=== PATIENT | male | born 1945 | race Caucasian/White ===

== ENCOUNTER → 2018-02-16 08:27 | Outpatient (CLI) | payer MEDICARE, SELFPAY ==
[2018-02-16 09:53] LABS: PSA,Total- Diagnostic 5.83 ng/mL (0.0-4.0)
== END ==
PROVIDERS: Family Provider Family Medicine; PCP Family Medicine; Visit Provider Urology
DX: R97.20 Elevated prostate specific antigen [PSA] (principal)
CPT/HCPCS: 36415; 84153

== ENCOUNTER → 2019-09-07 15:38 | Outpatient (CLI) | payer MEDICARE, SELFPAY ==
[2019-09-05 08:47] VITALS: BMI 26.2
[2019-09-05 11:07] LABS: Anion Gap 1 (5-15); BUN 18 mg/dL (7-18); BUN/Creat Ratio 16.2 RATIO (10-20); Calcium,Total 8.8 mg/dL (8.5-10.1); Chloride 108 mmol/L (98-107); Creatinine, Serum 1.11 mg/dL (0.70-1.30); EST Glomerular Filtration Rate 69 mL/min (>60); Est Glom Filt Rate - Afr Amer 84 mL/min (>60); Glucose 100 mg/dL (74-106); Potassium 4.5 mmol/L (3.5-5.1); Sodium Level 138 mmol/L (136-145)
--- NOTE | 2019-09-07 15:42 | CT_ITS ---
STUDY: CT CHEST WITH CONTRAST REASON FOR EXAM: Male, 74 years old. TAA fu-no surgery. Prior cardiac ablation and hx of skin cancer RADIATION DOSAGE (If Supplied By Facility): CTDIvol = ( 14.45 ) mGy, DLP = ( 468.10 ) mGycm TECHNIQUE: Transaxial imaging was performed following intravenous administration of IV 100mL Isovue-300. Multiplanar coronal and sagittal images were reformatted. Individualized dose optimization techniques were used for this CT. COMPARISON: None. FINDINGS: The lungs are normal. There is no demonstrated pleural abnormality. Normal heart and pericardium. There are calcifications of the coronary arteries. Normal mediastinum. Normal hilar regions. Normal enhanced pulmonary arteries. There is ectasia of the ascending thoracic aorta with axial diameter measuring up to 4.1 x 4.2 cm. No significant atherosclerosis of the thoracic aorta except for minimal calcified plaque along the inferior margin of the thoracic aorta. No thoracic aortic dissection. Descending thoracic aorta is normal in caliber. There are degenerative changes of the thoracic spine. There is a Schmorl''s node of superior L1 endplate. There is a simple cyst of the posterior right hepatic lobe. CT/Chest WITH Contrast IMPRESSION: 1. Mild aneurysmal enlargement of the ascending thoracic aorta measuring 4.1 x 4.2 cm. No thoracic aortic dissection. 2. Simple hepatic cyst. 3. Degenerative changes of the thoracic spine. Electronically Signed: Farhan Garcia MD ([place]) at 13:00 EST , Service support ,
== END ==
PROVIDERS: PCP Family Medicine; Referring Provider Internal Medicine Cardiovascular Disease; Visit Provider Internal Medicine Cardiovascular Disease
DX: I71.2 Thoracic aortic aneurysm, without rupture (principal)
CPT/HCPCS: 36415; 71260; 80048; Q9967

== ENCOUNTER → 2020-09-08 15:33 | Outpatient (CLI) | payer MEDICARE, SELFPAY ==
[2020-06-19 09:08] VITALS: BMI 26.3
--- NOTE | 2020-09-08 | PROSBIL_PTH ---
PATIENT: BRIDGETTE MONGE LOC: [facility] U#:[id number] AGE/SX: 80/M ROOM: RE09/08/[address]: Dr. Chandan Mckinnon MD : 1945 BED: DIS: SPEC #: [id number] RECD: 09/08/20 15:12 STATUS: MANNY CAM #: [id number] MEJIA: 09/08/20 00:[address]: Chandan Mckinnon DEPT: SURGICAL PATHOLOGY RECD BY: Jason Yeager ENTERED: 09/09/20 07:52 SP TYPE: PROST BX BRENDA DR: Dr. Romel Bowman III, MD Tissues: A - PROSTATE RIGHT B - PROSTATE RIGHT C - PROSTATE RIGHT D - PROSTATE LEFT E - PROSTATE LEFT F - PROSTATE LEFT Procedures: PROSTATE BX HEADER OPERATION: Prostate biopsy PRE-OP DIAGNOSIS: Elevated PSA TISSUE SUBMITTED: A - Right apex, B - Right mid, C - Right base, D - Left apex, E - Left mid, F - Left base MICROSCOPIC DIAGNOSIS A. Right prostate, apex, core biopsy: Minimal chronic inflammation and focal glandular atrophy. B. Right prostate, mid, core biopsy: Minimal chronic inflammation and focal glandular atrophy. C. Right prostate, base, core biopsy: Benign prostatic tissue. D. Left prostate, apex, core biopsy: Mild chronic inflammation. E. Left prostate, mid, core biopsy: Mild chronic inflammation and focal glandular atrophy. F. Left prostate, base, core biopsy: Focal glandular atrophy. AM:anais 09/10/2020 MICROSCOPIC DESCRIPTION Slides are reviewed. GROSS DESCRIPTION A - Received is one container designated prostate, right apex. The specimen consists of two elongated fragments of light abad-white soft tissue measuring 0.2 x 0.5 cm in length and 0.1 cm in diameter. The specimen is totally submitted in one cassette. B - Received is one container designated prostate, right mid. The specimen consists of two elongated fragments of light abad-white soft tissue each measuring 1 cm in length and 0.1 cm in diameter. The specimen is totally submitted in one cassette. C - Received is one container designated prostate, right base. The specimen consists of three elongated fragments of light abad-white soft tissue measuring 0.5 to 1 cm in length and 0.1 cm in diameter. The specimen is totally submitted in one cassette. D - Received is one container designated prostate, left apex. The specimen consists of two elongated fragments of light abad-white soft tissue measuring 0.5 and 1.3 cm in length and 0.1 cm in diameter. The specimen is totally submitted in one cassette. E - Received is one container designated prostate, left mid. The specimen consists of three elongated fragments of light abad-white soft tissue measuring 0.5 to 2 cm in length and 0.1 cm in diameter. The specimen is totally submitted in one cassette. F - Received is one container designated prostate, left base. The specimen consists of two elongated fragments of light abad-white soft tissue measuring 1 and 1.2 cm in length and 0.1 cm in diameter. The specimen is totally submitted in one cassette. / SJ:rg 09/09/20 TC:3 CPT: G0146
== END ==
PROVIDERS: PCP Family Medicine; Referring Provider Urology; Visit Provider Urology
DX: R97.20 Elevated prostate specific antigen [PSA] (principal)
CPT/HCPCS: 88305; G0416

== ENCOUNTER → 2020-09-15 12:57 | Outpatient (CLI) | payer MEDICARE, SELFPAY ==
[2020-06-19 09:08] VITALS: BMI 26.3
== END ==
PROVIDERS: PCP Family Medicine; Referring Provider Internal Medicine Cardiovascular Disease; Visit Provider Internal Medicine Cardiovascular Disease
DX: I47.1 Supraventricular tachycardia (principal); R00.2 Palpitations
CPT/HCPCS: 93225; 93226

== ENCOUNTER → 2021-02-13 06:17 | Outpatient (CLI) | payer MEDICARE, SELFPAY ==
[2021-02-10 08:52] VITALS: BMI 26.0
--- NOTE | 2021-02-13 13:21 | STRESSREP ---
Stress Test Report Desires myocardial perfusion stress test. 75-year-old man with a history of chest pain. Stress protocol: Resting EKG demonstrates sinus bradycardia with a rate of 57 bpm normal intervals are noted resting blood pressure is 1 and 32 over 80 mmHg. The patient exercised according to regular Volodymyr protocol for total duration of 10 minutes. Patient completed 1 minute into stage IV of the Volodymyr protocol. The maximum heart rate attained was 136 bpm which was 92% of maximum predicted heart rate the maximum workload was 11.9 metabolic equivalents. At rest there were no ST or T wave changes noted to suggest ischemia and at peak exercise upsloping ST changes only were noted with did not meet the criteria for ischemia. The test was terminated due to the target heart rate being achieved. No chest pain was noted. Myocardial perfusion protocol. 11.7 mCi of technetium 99m sestamibi was injected at rest. The patient exercised according to regular Volodymyr protocol and at peak exercise 32.9 mCi of technetium 99m sestamibi was injected stress images were obtained stress and rest images were reconstructed and compared in the short axis vertical long horizontal long axis. Gated images were also obtained to Perfusion SPECT analysis: Review of the stress images demonstrate normal uptake of tracer noted in all areas of the myocardium. The resting images similarly demonstrate normal uptake of tracer noted in all areas of the myocardium. No areas of reversibility are noted to suggest ischemia no previous infarct is noted. Gated SPECT analysis: The gated ejection fraction is 68%. Conclusion: Normal exercise myocardial perfusion stress test at a high workload. Preserved ejection fraction. Good functional aerobic capacity.
== END ==
PROVIDERS: PCP Family Medicine; Referring Provider Internal Medicine Cardiovascular Disease; Visit Provider Internal Medicine Cardiovascular Disease
DX: R07.89 Other chest pain (principal)
CPT/HCPCS: 78452; 93017; A9500; A4216

== ENCOUNTER → 2021-05-19 08:01 | Outpatient (REF) | payer SELFPAY | LOC: CVS 08:01 | PROVIDERS: PCP Family Medicine | DX: Z00.00 Encounter for general adult medical examination without abnormal findings (principal) ==

== ENCOUNTER 2022-01-04 10:00 | Outpatient (RCR) | payer MEDICARE, SELFPAY ==
--- NOTE | 2021-12-17 09:59 | HP.PTEVAL_ITS ---
Patient's Visit Information BRIDGETTE MONGE is a 76 year old M referred to Physical Therapy by NIK JohnsonM with a diagnosis of Peripheral Neuropathy. Date of Evaluation: 12/16/21 Physical Therapist: Jose Butt, PT, ATC - Visit Plan Frequency: 2x /Week Duration: 2 Weeks Plan: Issue and instruct pt on HEP of core and LE strengthening ex's and balance activity over 4 visits - Subjective Pt reports he has had B foot neuropathy that is intermittent in nature for several years. Pt reports his feet tend to tighten up on him at times and he has noticed having difficulty with balance over this time span. Pt reports he is trying to be proactive by coming to PT in order to avoid future falls and debility. Pt reports he and his work out here 2 days a week in order to maintain fitness, and his goal is to decelerate the aging process as much as possible by remaining fit. 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 Pt reports occasional knee pain. Pt reports he can feel the bottom of his feet on various surfaces. Pt reports he is only limited with certain ex machines, and he is nervous with how he loses balance with quick turns. Pt is not in pain at this time. - Objective Neuro: B LE sensation is WNL to light touch. B achilles reflex= 2/3. ROM: B LE's are WFL bompared bilaterally. MMT: B knee ext= 5/5. All other B LE measurements 4/5 throughout. FGA: . Gait: Pt ambulates with knee valgus indicating weak core strength - Balance/Special Test Scores Functional Gait Assessment Score: 28 % Disability: 6.6700 Lower Extremity Functional Score: 64 - Goals Goal 1:: I with HEP of LE strengthening and core strengthening Goal Time Frame: 2-4 Weeks Goal 2:: Increase LEFS x 5 points Goal Time Frame: 2-4 Weeks - Rehabilitation Potential Physical Therapy Diagnosis: Pt has B LE weakness, core weakness, and unsteady transfers secondary to peripheral neuropathy Rehabilitation Potential: Good - Anticipated Interventions Patient/Client Instruction: Educate patient on: Condition, Plan of Care For the Purpose of:: To improve self management Therapeutic Exercise to Include: Strength training, Endurance training, Balance training, Flexibilty training, Dynamic Lumbar Stabilization For the Purpose of:: To improve muscle performance and motor function, To increase tolerance to activity/condition/position, To improve ability of physical actions for home/community/work/leisure Thank you for the opportunity to evaluate your patient. For Medicare and Medicare HMO plans, please review the plan of care and approve it. It will need to be FAXED BACK to us at [phone] for Medicare purposes. For Medicare only, by signing this I certify the plan of care. Please let me know if there are questions or concerns regarding this plan of c are. Physician Signature: Date:
--- NOTE | 2022-02-10 07:28 | HP.PT.NRP ---
BRIDGETTE MONGE was seen in my office for initial evaluation on 12/16/21. The following Plan of Care was established for this patient: Initial Frequency: 2x /Week Initial Duration: 2 Weeks Patient/Client Instruction: Educate patient on: Condition, Plan of Care For the Purpose of:: To improve self management Therapeutic Exercise to Include: Strength training, Endurance training, Balance training, Flexibilty training, Dynamic Lumbar Stabilization For the Purpose of:: To improve muscle performance and motor function, To increase tolerance to activity/condition/position, To improve ability of physical actions for home/community/work/leisure This patient was last seen in our office . Pertinent comments regarding their Physical therapy will appear below: Pt was treated for 4 PT visits for unsteady gait through the date of 01/04/22. Pt has not returned through todays date, and is discontinued at this time. At this point I will be discontinuing this patient from physical therapy. I would be happy to see this patient again in the future if found appropriate by the physician. Thank you! Jose Butt, PT, ATC Balance/Gait/Functional tests - Balance/Special Test Scores Functional Gait Assessment Score: 28 % Disability: 6.6700 Lower Extremity Functional Score: 64
== END 2022-01-04 19:00 | disposition home or self-care (01) ==
LOC: PT 10:00
PROVIDERS: PCP Family Medicine; Referring Provider Podiatrist; Visit Provider Podiatrist
DX: G62.9 Polyneuropathy, unspecified (principal)
CPT/HCPCS: 97110; 97161

== ENCOUNTER → 2023-02-25 | Outpatient (CLI) | payer MEDICARE, SELFPAY ==
[2023-02-25 15:34] LABS: AST(SGOT) 25 U/L (15-37); Alanine Aminotransfer ALT/SGPT 23 U/L (16-61); Albumin, Serum 3.4 g/dL (3.2-5.0); Alkaline Phosphatase 74 U/L (45-117); Anion Gap 3 (5-15); BUN 18 mg/dL (7-18); BUN/Creat Ratio 16.7 RATIO (10-20); Bilirubin, Direct 0.24 mg/dL (0.00-0.30); Calcium,Total 8.5 mg/dL (8.5-10.1); Chloride 113 mmol/L (98-107); Cholesterol 124 mg/dL (200); Creatinine, Serum 1.08 mg/dL (0.70-1.30); EST Glomerular Filtration Rate 71 mL/min (>60); Est Glom Filt Rate - Afr Amer 86 mL/min (>60); Globulin 3.1 g/dL (2.2-4.2); Glucose 88 mg/dL (74-106); High Density Lipoprotein 64 mg/dL; Potassium 4.7 mmol/L (3.5-5.1); Protein, Total 6.5 g/dL (6.4-8.2); Sodium Level 143 mmol/L (136-145); Triglycerides 68 mg/dL; Very Low Density Lipoprotein 14 mg/dL (5-40)
== END | disposition home or self-care (01) ==
LOC: LAB 14:02
PROVIDERS: PCP Family Medicine; Referring Provider Internal Medicine Cardiovascular Disease; Visit Provider Internal Medicine Cardiovascular Disease
DX: I71.20 Thoracic aortic aneurysm, without rupture, unspecified (principal); I47.1 Supraventricular tachycardia
CPT/HCPCS: 36415; 80048; 80061; 80076

== ENCOUNTER → 2023-04-25 | Outpatient (CLI) | payer MEDICARE, SELFPAY ==
--- NOTE | 2023-04-25 15:06 | NEURO ---
NCS and/or EMG Patient Report Ordering Doctor: Gonzalo Wright DATE OF SERVICE: 04/25/23 Findings: Nerve conduction studies were performed in the right upper and lower extremity. The right peroneal motor study recording the extensor digitorum brevis showed a borderline amplitude, normal distal latency and slowed conduction velocity. No conduction block or focal slowing was present across the fibular neck. The right peroneal motor study recording the tibialis anterior showed a normal amplitude, normal distal latency and normal conduction velocity. No conduction block or focal slowing was present across the fibular neck. The right tibial motor study recording the abductor hallucis brevis showed a slightly reduced amplitude, normal distal latency and slowed conduction velocity. The right sural sensory response was absent. The right superficial peroneal sensory response was absent. The left peroneal motor study recording the extensor digitorum brevis showed a reduced amplitude, normal distal latency and slowed conduction velocity. No conduction block or focal slowing was present across the fibular neck. The left peroneal motor study recording the tibialis anterior showed a reduced amplitude, normal distal latency and normal conduction velocity. No conduction block or focal slowing was present across the fibular neck. The left tibial motor study recording the abductor hallucis brevis showed a borderline amplitude, normal distal latency and slowed conduction velocity. The left sural sensory response was absent. The left superficial peroneal sensory response was absent. Needle EMG of the right lower extremity muscles was performed. No denervation was present in any muscle. The motor units seen in the extensor hallucis longus were large amplitude and long duration with reduced recruitment. All other sampled muscles revealed normal motor unit morphology, activation, and recruitment patterns. Impression: This is an abnormal study. There is electrophysiologic evidence of a generalized, length-dependent, axonal, sensory greater than motor, peripheral neuropathy. Roderick Bowie D.O. Multi Select Codes Neurology Neurology Interp Codes: 88049-01 Musc test done w/n test comp (interp) and 23578-39 Nr cndj test 9-10 studies (interp)
== END | disposition home or self-care (01) ==
LOC: PSN 13:53
PROVIDERS: PCP Family Medicine; Referring Provider Podiatrist; Visit Provider Podiatrist
DX: G60.8 Other hereditary and idiopathic neuropathies (principal)
CPT/HCPCS: 95886; 95911

== ENCOUNTER → 2023-05-09 | Outpatient (CLI) | payer MEDICARE, SELFPAY ==
--- NOTE | 2023-05-09 12:48 | CT_ITS ---
STUDY: CTA CHEST REASON FOR EXAM: Male, 78 years old. Ascending thoracic aorta aneurysm history RADIATION DOSAGE (If Supplied By Facility): CTDIvol = ( 13.67 ) mGy, DLP = ( 504.20 ) mGycm TECHNIQUE: The examination was performed with the intravenous administration of IV 100mL Isovue-370. Post-processing of the angiographic images was performed, with multiplanar reformation and 3D reconstruction. Individualized dose optimization techniques were used for this CT. COMPARISON: 09/07/2019 FINDINGS: Normal enhancement of the main pulmonary artery and right and left pulmonary arteries. Normal enhancement of the bilateral peripheral pulmonary arteries. There is no demonstrated pulmonary embolism. There is aneurysmal dilatation of the ascending aorta. The transverse diameter of the ascending aorta measures 46 mm''s. This represents an increase since the previous study where it measured up to 42 mm. There is no demonstrated aortic dissection. Normal heart and pericardium. Normal mediastinum. Normal hilar regions. There is peribronchial thickening. The lungs are well expanded. Normal pulmonary parenchyma. Normal pleura. Normal chest wall structures. There are degenerative changes of thoracic spine. Limited cuts through the upper abdomen do not show a suspicious abnormality CT/CTA Chest W/WO Contrast IMPRESSION: No demonstrated PE Slight increase in size of a known ascending thoracic aortic aneurysm at 46 mm. No evidence of dissection. On the previous study, the maximum dimension of the ascending thoracic aorta was 42 mm. Chronic bronchitis, no superimposed acute pulmonary process No suspicious adenopathy Degenerative bony changes Electronically Signed: Bora Angelo MD at 14:00 EDT ,
[2023-05-09 13:25] LABS: CREATININE FINGERSTICK 1.1 mg/dL (0.70-1.30); EGFR FINGERSTICK > 60.0000 mL/min (>60)
== END | disposition home or self-care (01) ==
LOC: CT 12:47
PROVIDERS: PCP Family Medicine; Referring Provider Nurse Practitioner Family; Visit Provider Nurse Practitioner Family
DX: I71.20 Thoracic aortic aneurysm, without rupture, unspecified (principal)
CPT/HCPCS: 71275; Q9967

== ENCOUNTER 2023-08-24 08:58 | Observation (INO) | payer MEDICARE, SELFPAY ==
[2023-08-10 09:44] LABS: Hemoglobin 15.3 g/dL (13.0-16.5); Mean Corp Hgb Conc 33.3 g/dL (32-36); Mean Corpuscular Hgb 31.7 pg (27.0-32.0); Mean Corpuscular Volume 95.4 fL (80-94); Mean Platelet Vol. 11.2 fl (6.2-12.0); Platelet Count 164 K/mm3 (150-450); RBC Distribution Width CV 11.9 % (11.6-14.6); Red Blood Count 4.82 M/mm3 (4.6-6.2); White Blood Count 5.4 K/mm3 (4.4-11.0)
[2023-08-10 10:20] LABS: Anion Gap 4 (5-15); BUN 20 mg/dL (7-18); BUN/Creat Ratio 17.9 RATIO (10-20); Calcium,Total 8.9 mg/dL (8.5-10.1); Chloride 110 mmol/L (98-107); Creatinine, Serum 1.12 mg/dL (0.70-1.30); EST Glomerular Filtration Rate 68 mL/min (>60); Est Glom Filt Rate - Afr Amer 82 mL/min (>60); Glucose 105 mg/dL (74-106); Potassium 4.3 mmol/L (3.5-5.1); Sodium Level 141 mmol/L (136-145)
[2023-08-24] VITALS (12 sets, daily range): BP systolic 100–128; BP diastolic 59–76; PULSE 49–79; RESP 16–18; TEMP 36.3–36.9; O2SAT 93–98; BMI 25.9; BMI 26.0
--- OUTSIDE RECORDS SUMMARY | 2023-08-24 07:05 | XMS RPT_ITS | CCD ---
Author Name Unknown Address [address] [place] [address] Organization [facility] Care Team Providers Care Pattern Wheel Maker Name Role Phone Cintia GUERRERO Nicole A Unavailable Unavailab le Cass Cunninghamica N Unavailable Jyotsna Acosta Unavailable Unavailable Cunningham, Jyotsna N Unavailable Marisa Jyotsna N Unavailable EFRAIN, MICHELLE E Unavailable Unavailable EFRAIN, MICHELLE E Unavailable Unavailable EFRAIN, MICHELLE Unavailable Unavailable CEBUL, RUPINDER Unavailable Unavailable EFRAIN, MICHELLE Unavailable Unavailable EFRAIN, MICHELLE Unavailable Unavailable EFRAIN, MICHELLE Unavailable Unavailable CEBUL, RUPINDER Unavailable Unavailable Jared Chamberlain LPNlle A Unavailable Unavailab Sherry Crandall MD Primary Care Provider Sherry Novak MD Primary Care Provider Sherry Novak MD Primary Care Provider [phone] Sherry Novak MD Unavailable Sherry Wright MD Unavailable MEKHI VERNON Referring Unavailable SHERRY NOVAK Primary Care Unavailable PAN POOL Attending Unavailable MEKHI VERNON Referring Unavailable SHERRY NOVAK Primary Care Unavailable PAN POOL Attending Unavailable MEKHI VERNON Referring Unavailable SHERRY NOVAK Primary Care Unavailable PAN POOL Attending Unavailable MEKHI VERNON Referring Unavailable SHERRY NOVAK Primary Care Unavailable PAN POOL Attending Unavailable SHERRY NOVAK Primary Care Unavailable MEKHI VERNON Attending Unavailable MEKHI VERNON Attending Unavailable SEHRRY NOVAK Referring Unavailable KISHORE, SHERRY A Primary Care Unavailable VERNON, MEKHI Referring Unavailable KISHORE, SHERRY A Primary Care Unavailable PAN POOL Attending Unavailable VERNON, MEKHI Referring Unavailable CORINE, PAN Attending Unavailable KISHORE, SHERRY A Primary Care Unavailable VERNON, MEKHI Referring Unavailable CORINE, PAN Attending Unavailable KISHORE, SHERRY A Primary Care Unavailable VERNON, MEKHI Referring Unavailable KISHORE, SHERRY A Primary Care Unavailable CORINE, PAN Attending Unavailable KISHORE, SHERRY A Primary Care Unavailable VERNON, MEKHI Referring Unavailable CORINE, PAN Attending Unavailable KISHORE, SHERRY A Primary Care Unavailable VERNON, MEKHI Referring Unavailable CORINE, PAN Attending Unavailable KISHORE, SHERRY A Primary Care Unavailable VERNON, MEKHI Referring Unavailable CORINE, PAN Attending Unavailable VERNON, MEKHI Referring Unavailable KISHORE, SHERRY A Primary Care Unavailable CORINE, PAN Attending Unavailable VERNON, MEKHI Referring Unavailable KISHORE, SHERRY A Primary Care Unavailable CORINE, PAN Attending Unavailable VERNON, MEKHI Referring Unavailable KISHORE, SHERRY A Primary Care Unavailable PAN POOL Attending Unavailable VERNON, MEKHI Referring Unavailable KISHORE, SHERRY A Primary Care Unavailable PAN POOL Attending Unavailable Allergies Allergy Classification Reported Allergen(s) Allergy Type Date of Onset Reaction(s) Facility (6 sources) benzoyl peroxide / erythromycin drug allergy 11-18-19 16 [facility] Work Phone: (20 sources) erythromycin drug allergy 08-10-20 05 Unknown [facility] Work Phone: (20 sources) iodine; Translations: [IODINE] drug allergy 06-12-20 12 Other: See Comments [facility] Work Phone: (6 sources) penicillin g drug allergy 11-18-19 16 [facility] Work Phone: (6 sources) penicillin v drug allergy 11-18-19 16 unknown [facility] Work Phone: (6 sources) sulfADIAZINE drug allergy 11-18-19 16 hives and itchy [facility] Work Phone: (6 sources) Sulfonamides drug allergy 11-18-19 16 [facility] Work Phone: (6 sources) ADHESIVE PAPER drug allergy 09-27-19 17 hives, swollena and breaks out [facility] Work Phone: (3 sources) erythromycin; Translations: [ERYTHROMYCIN] Drug Allergy 08-10-20 05 [facility] Rep[facility] (20 sources) Penicillins; Translations: [PENICILLINS] Propensity to adverse reactions to drug (disorder) 08-10-20 05 Unknown [facility] Rep[facility] (20 sources) Sulfonamides (Antibiotic); Translations: [SULFA (SULFONAMIDE ANTIBIOTICS)] Propensity to adverse reactions to drug (disorder) 08-10-20 05 Unknown [facility] Medications Completed/Discontinued Medications Medication Drug Class(es) Dates Sig (Normalized) Sig (Original) acebutolol 200 mg oral capsule (20 sources) beta-Adrenergic Phuc Start: 02-21-2023 take 1 capsule by mouth every other day acebutolol (SECTRAL) 200 mg capsule Indications: SVT (supraventricular tachycardia) Take 1 capsule by mouth every other day. 45 capsule 1 02/21/2023 Active Problems Active Problems Problem Classification Problem Date Documented Date Episodic/Chronic Aortic; peripheral; and visceral artery aneurysms (20 sources) Thoracic aortic aneurysm without rupture; Translations: [Thoracic aortic aneurysm, without rupture] Onset: 01-20-2021 02-10-2021 Chronic Asthma (20 sources) Mild intermittent asthma; Translations: [Mild intermittent asthma, uncomplicated] Onset: 01-20-2021 02-10-2021 Chronic Cardiac dysrhythmias (20 sources) Supraventricular tachycardia; Translations: [Supraventricular tachycardia] Onset: 06-14-2013 02-10-2021 Chronic Diverticulosis and diverticulitis (20 sources) Diverticulosis of colon; Translations: [Diverticulosis of large intestine without perforation or abscess without bleeding] 07-22-2021 Chronic Hyperplasia of prostate (20 sources) Benign prostatic hypertrophy with outflow obstruction; Translations: [Benign prostatic hyperplasia with lower urinary tract symptoms] Onset: 07-14-2015 02-10-2021 Chronic Nutritional deficiencies (20 sources) Vitamin D deficiency; Translations: [Vitamin D deficiency, unspecified] Onset: 11-12-2009 02-10-2021 Chronic Other liver diseases (20 sources) Lesion of liver; Translations: [Liver disease, unspecified] Onset: 07-15-2016 02-10-2021 Chronic Other liver diseases (20 sources) Liver cyst; Translations: [Other specified diseases of liver] Onset: 07-26-2018 02-10-2021 Chronic Other nervous system disorders (20 sources) Idiopathic peripheral neuropathy; Translations: [Hereditary and idiopathic neuropathy, unspecified] Onset: 08-23-2014 07-22-2021 Chronic Other nervous system disorders (8 sources) Neuropathy; Translations: [Other hereditary and idiopathic neuropathies] Onset: 04-29-2023 04-29-2023 Chronic Unclassified (1 source) Unknown / UNK(Unknown) Onset: 09-15-2017 Past or Other Problems Problem Classification Problem Date Documented Date Episodic/Chronic Diabetes mellitus without complication (20 sources) Impaired fasting glycemia; Translations: [Impaired fasting glucose] Onset: 07-26-2018 02-10-2021 Episodic Hemorrhoids (20 sources) Hemorrhoids; Translations: [Unspecified hemorrhoids] Onset: 11-16-2010 02-10-2021 Episodic Melanomas of skin (20 sources) History of malignant melanoma of the skin; Translations: [Personal history of malignant melanoma of skin] Onset: 03-08-2007 02-10-2021 Episodic Other connective tissue disease (6 sources) Adhesive capsulitis of right shoulder; Translations: [Adhesive capsulitis of right shoulder] Onset: 11-10-2016 11-21-2016 Episodic Other connective tissue disease (20 sources) Lateral epicondylitis of right humerus; Translations: [Lateral epicondylitis, right elbow] Onset: 10-28-2022 Episodic Other connective tissue disease (1 source) Lateral epicondylitis, right elbow; Translations: [Right lateral epicondylitis] Onset: 10-28-2022 Episodic Other lower respiratory disease (6 sources) Dyspnea; Translations: [Shortness of breath] Onset: 11-19-2015 11-19-2015 Episodic Other lower respiratory disease (20 sources) Chronic cough; Translations: [Chronic cough] Onset: 07-14-2015 02-10-2021 Episodic Other non-epithelial cancer of skin (20 sources) History of malignant neoplasm of skin; Translations: [Personal history of other malignant neoplasm of skin] Onset: 03-16-2014 02-10-2021 Episodic Other non-traumatic joint disorders (11 sources) Impingement syndrome of shoulder region; Translations: [Pain in right shoulder] Onset: 11-10-2016 11-21-2016 Episodic Other non-traumatic joint disorders (1 source) Pain in right shoulder; Translations: [Pain in right shoulder] Onset: 11-10-2016 11-10-2016 Episodic Other screening for suspected conditions (not mental disorders or infectious disease) (20 sources) Patient encounter status; Translations: [Encounter for screening for lipoid disorders] Onset: 08-30-2022 Episodic Results Test Name Value Interpretation Reference Range Facil ity Vital Signs Date Time Vital Sign Value Performing Clinician Facility 10-20-2022 12:04-0500 Diastolic blood pressure 88 mm[Hg] Mekhi OVERTON-C Work Phone: [facility] 10-20-2022 12:04-0500 Systolic blood pressure 138 mm[Hg] Mekhi OVERTON-C Work Phone: [facility] 10-20-2022 11:53-0500 Heart rate 52 /min Mekhi OVERTON-C Work Phone: [facility] 10-20-2022 11:53-0500 Respiratory rate 16 /min Mekhi OVERTON-C Work Phone: [facility] 10-20-2022 11:53-0500 SaO2% (BldA) [Mass fraction] 96 % Mekhi OVERTON-C Work Phone: [facility] 08-30-2022 12:17-0500 Diastolic blood pressure 82 mm[Hg] Mekhi OVERTON-C Work Phone: [facility] 08-30-2022 12:17-0500 Systolic blood pressure 128 mm[Hg] Mekhi OVERTON-C Work Phone: [facility] 08-30-2022 12:12-0500 Body height 182.6 cm Mekhi OVERTON-C Work Phone: [facility] 08-30-2022 12:12-0500 Body weight 87.73 kg Mekhi OVERTON-C Work Phone: [facility] 08-30-2022 12:12-0500 Heart rate 59 /min Mekhi Vernon PA-C Work Phone: [facility] 08-30-2022 12:12-0500 Respiratory rate 18 /min Mekhi Vernon PA-C Work Phone: [facility] 08-30-2022 12:12-0500 SaO2% (BldA) [Mass fraction] 95 % Mekhi Vernon PA-C Work Phone: [facility] 03-28-2017 07:08-0400 BMI (Body Mass Index) 25.86 kg/m2 Nicole Yensho GROCERY SUPERVISOR [facility] Work Phone: 03-28-2017 07:08-0400 Body Temperature 97.7 [degF] Nicole Yensho GROCERY SUPERVISOR [facility] Work Phone: 03-28-2017 07:08-0400 BP Diastolic 18 mm[Hg] Nicole Yensho GROCERY SUPERVISOR [facility] Work Phone: 03-28-2017 07:08-0400 BP Systolic 127 mm[Hg] Nicole Yensho GROCERY SUPERVISOR [facility] Work Phone: 03-28-2017 07:08-0400 Height 185.42 cm Nicole Yensho GROCERY SUPERVISOR [facility] Work Phone: 03-28-2017 07:08-0400 Pulse (Heart Rate) 53 /min Nicole Yensho GROCERY SUPERVISOR [facility] Work Phone: 03-28-2017 07:08-0400 Respiratory Rate 18 /min Nicole Yensho GROCERY SUPERVISOR [facility] Work Phone: 03-28-2017 07:08-0400 Weight 88.91 kg Nicole Yensho GROCERY SUPERVISOR [facility] Work Phone: 11-10-2016 13:30-0400 BMI (Body Mass Index) 25.06 kg/m2 [facility] Work Phone: 11-10-2016 13:30-0400 Weight 86.18 kg [facility] Work Phone: 09-27-2016 09:19-0500 Body Temperature 97.16 [degF] [facility] Work Phone: 09-27-2016 09:19-0500 Body Temperature 97.2 [degF] [facility] Work Phone: 09-27-2016 09:19-0500 BP Diastolic 82 mm[Hg] [facility] Work Phone: 09-27-2016 09:19-0500 BP Systolic 125 mm[Hg] [facility] Work Phone: 09-27-2016 09:19-0500 BSA (Body Surface Area) 2.15 m2 [facility] Work Phone: 09-27-2016 09:19-0500 Height 185.42 cm [facility] Work Phone: 09-27-2016 09:19-0500 Pulse (Heart Rate) 56 /min [facility] Work Phone: 09-27-2016 09:19-0500 Pulse Oximetry 98 % [facility] Work Phone: 09-27-2016 09:19-0500 Respiratory Rate 18 /min [facility] Work Phone: 09-27-2016 09:19-0500 Weight 90.45 kg Jyotsna Cunningham [facility] Work Phone: Encounters Encounter Date Encounter Type Care Provider Facility Start: 07-21-2023 End: 07-21-2023 ambulatory MEKHI VERNON Facility:[facility] Start: 07-21-2023 End: 07-21-2023 ambulatory Pan Pool PT Work Phone: [facility] Physical Therapy Procedures Date Procedure Procedure Detail Performing Clinician Start: 02-25-2023 Lipid panel [facility] Provid er Start: 11-10-2016 End: 11-21-2016 Drain/inject, joint/bursa Ajit Ryan Martin Work Phone: Start: 09-27-2016 End: 09-30-2016 Follow Up Appt 6 months Bibiana atwood AMBULATORY NURSE Work Phone: Start: 09-15-2016 End: 09-17-2016 Pulmonary Function Test - complete Bibiana Lovett AMBULATORY NURSE Work Phone: Start: 03-29-2016 End: 09-17-2016 BWA Bibiana Mendoza AUTOMATIC HEMMER Work Phone: Start: 12-31-2015 End: 01-02-2016 Evaluate pt use of inhaler Volodymyr moody Work Phone: Start: 12-31-2015 End: 09-30-2016 Follow Up Appt 3 months Volodymyr Felix Work Phone: Start: 11-19-2015 End: 03-26-2016 Follow Up Appt 1 month Volodymyr Felix Work Phone: Start: 11-19-2015 End: 03-26-2016 Pulmonary Function Test - complete Volodymyr Felix Work Phone: Start: 12-28-2010 Kaci ding MD Work Phone: Plan of Treatment Date Care Activity Detail Author Start: 02-26-2028 LIPID SCREEN LIPID SCREEN [facility] Start: 07-05-2027 LIPID SCREEN LIPID SCREEN [facility] Start: 08-11-2026 Urine microalbumin profile [facility] Start: 07-16-2026 LIPID SCREEN LIPID SCREEN [facility] Start: 07-05-2025 DIABETES SCREEN DIABETES SCREEN [facility] Start: 07-05-2025 Diabetes Screening Diabetes Screenin g [facility] Start: 07-16-2024 DIABETES SCREEN DIABETES SCREEN [facility] Start: 12-24-2023 COLOGUARD (FIT-DNA) COLOGUARD (FIT-D NA) [facility] Start: 12-24-2023 COLORECTAL CANCER SCREENING COLORECTAL CANCER SCREENING [facility] Start: 12-18-2023 COLOGUARD (FIT-DNA) COLOGUARD (FIT-D NA) [facility] Start: 12-18-2023 COLORECTAL CANCER SCREENING COLORECTAL CANCER SCREENING [facility] Start: 10-21-2023 ANNUAL PCP TEAM DIRECTOR INSURANCE CITLALY DISEASE VISIT ANNUAL PCP TEAM CHRONIC DISEASE VISIT [facility] Start: 08-30-2023 ANNUAL PCP TEAM DIRECTOR INSURANCE CITLALY DISEASE VISIT ANNUAL PCP TEAM CHRONIC DISEASE VISIT [facility] Start: 04-15-2023 Covid-19 Vaccine () Covid-19 Vaccine () [facility] Start: 04-15-[address] [facility] Start: 10-14-2022 COVID-19 VACCINE (6 - Pfizer series) COVID-19 VACCINE (6 - Pfizer series) [facility] Start: 07-22-2022 ANNUAL PCP TEAM DIRECTOR INSURANCE CITLALY DISEASE VISIT ANNUAL PCP TEAM CHRONIC DISEASE VISIT [facility] Start: 06-23-2022 End: 08-23-2022 25-hydroxyvitamin D3 [Mass/volume] in Serum or Plasma VITAMIN D 25 HYDROXY Lab Routine Vitamin D deficiency Expected: 06/23/2022, Expires: 08/23/2022 [facility] Work Phone: Immunizations Immunization Date Immunization Notes Care Provider Fa cility 06-16-2022 COVID-19 booster vaccine, age 12+ yr, bivalent (PPTVNTMeditech Solution) Sherry Novak MD Work Phone: [facility] 06-16-2022 influenza, high dose seasonal, preservative-free Sherry Novak MD Work Phone: [facility] 06-16-2022 influenza virus vacc ine, unspecified formulation Sherry Novak MD Work Phone: [facility] 11-05-2020 COVID-19 vaccine, ag e 12+ yr (PFIZER-BIONTECH - PURPLE TOP) Sherry Novak MD Work Phone: [facility] Work Phone: 10-15-2020 COVID-19 vaccine, ag e 12+ yr (PFIZER-BIONTECH - PURPLE TOP) Sherry Novak MD Work Phone: [facility] Work Phone: 07-17-2020 zoster vaccine recombinant Sherry Novak MD Work Phone: [facility] 05-15-2020 influenza, high dose seasonal, preservative-free Sherry Novak MD Work Phone: [facility] 05-15-2020 zoster vaccine recombinant Sherry Novak MD Work Phone: [facility] 08-02-2019 influenza, high dose seasonal, preservative-free Sherry Novak MD Work Phone: [facility] 05-27-2018 influenza, high dose seasonal, preservative-free Sherry Novak MD Work Phone: [facility] 08-03-2017 influenza, high dose seasonal, preservative-free Sherry Novak MD Work Phone: [facility] Work Phone: 08-11-2016 tetanus and diphther ia toxoids, adsorbed, preservative free, for adult use (5 Lf of tetanus toxoid and 2 Lf of diphtheria toxoid) Sherry Novak MD Work Phone: [facility] 08-11-2016 typhoid vaccine, unspecified formulation Sherry Novak MD Work Phone: [facility] 07-22-2016 influenza, high dose seasonal, preservative-free Sherry Novak MD Work Phone: [facility] 07-14-2015 influenza, high dose seasonal, preservative-free Sherry Novak MD Work Phone: [facility] 07-14-2015 pneumococcal conjuga te vaccine, 13 valent Sherry Novak MD Work Phone: [facility] 06-24-2014 influenza, high dose seasonal, preservative-free Sherry Novak MD Work Phone: [facility] 06-14-2013 influenza virus vacc ine, unspecified formulation Sherry Novak MD Work Phone: [facility] 06-13-2012 pneumococcal polysaccharide vaccine, 23 valent Sherry Novak MD Work Phone: [facility] 06-12-2012 influenza virus vacc ine, unspecified formulation Sherry Novak MD Work Phone: [facility] 09-02-2009 novel influenza-H1N1 -09, preservative-free, injectable Sherry Novak MD Work Phone: [facility] 07-31-2009 tetanus and diphther ia toxoids, adsorbed, preservative free, for adult use (2 Lf of tetanus toxoid and 2 Lf of diphtheria toxoid) Sherry Novak MD Work Phone: [facility] 01-24-2009 zoster vaccine, live Sherry Novak MD Work Phone: [facility] 10-14-2004 yellow fever vaccine Sherry Novak MD Work Phone: [facility] 09-24-1999 hepatitis A vaccine, unspecified formulation Sherry Novak MD Work Phone: [facility] 09-24-1999 hepatitis B vaccine, adult dosage Sherry Novak MD Work Phone: [facility] 07-15-1999 hepatitis A vaccine, unspecified formulation Sherry Novak MD Work Phone: [facility] 07-15-1999 hepatitis B vaccine, adult dosage Sherry Novak MD Work Phone: [facility] 03-23-1999 hepatitis B vaccine, adult dosage Sherry Novak MD Work Phone: [facility] 02-09-1999 hepatitis A vaccine, unspecified formulation Sherry Novak MD Work Phone: [facility] 02-09-1999 hepatitis B vaccine, adult dosage Sherry Novak MD Work Phone: [facility] 02-09-1999 trivalent poliovirus vaccine, live, oral Sherry Novak MD Work Phone: [facility] 01-29-1999 diphtheria and tetan us toxoids, adsorbed for pediatric use Sherry Novak MD Work Phone: [facility] Payers Date Payer Category Payer Medicare AETNA MEDICARE A ETNA MEDICARE PPO [id number] 2021-Present [phone] [address] [place] [address] PPO [id number] 2021 Medicare AETNA MEDICARE A ETNA MEDICARE PPO [id number] 2021-Present [phone] [address] [place] [address] PPO [id number] 2021 Medicare [id number] Medicare [id number] Social History Date Type Detail Facility Start: 08-30-2022 Tobacco smoking stat [facility] Never smoked tobacco [facility] Start: 07-22-2021 End: 10-20-2022 Alcohol intake Current drinker of alcohol (finding) [facility] Start: 07-22-2021 End: 04-29-2023 Alcohol intake [facility] Start: 08-26-2020 End: 07-24-2022 History SDOH Alcohol Frequency 5 [facility] Start: 08-26-2020 End: 07-24-2022 History SDOH Alcohol Std Drinks 1 [facility] Start: 07-26-2016 History SDOH Alcohol Comment wine daily [facility] Start: 08-26-2020 End: 07-24-2022 History SDOH Social Connections Phone 3 [facility] Start: 08-26-2020 End: 07-24-2022 History SDOH Physical Activity DPW 7 [facility] Start: 08-26-2020 End: 07-24-2022 History SDOH Physical Activity MPS 6 [facility] Start: 08-26-2020 History SDOH Stress 4 [facility] Start: 08-26-2020 End: 07-24-2022 History SDOH Transport Med 2 [facility] Start: 08-26-2020 Education 18 [facility] Start: 1945 Sex Assigned At Male [facility] Start: 08-30-2022 Tobacco use and exposure Smoke less tobacco non-user [facility] Start: 07-24-2022 End: 04-29-2023 Social connection and isolation panel [facility] Do you belong to any clubs or organizations such as scientologist groups, unions, [email or web address] or athletic groups, or school groups? No [facility] Are you now , , , , never or living with a partner? [facility] How often to you hav e a drink containing alcohol? 4 or more times a week [facility] How many standard dr inks containing alcohol do you have on a typical day? 1 or 2 [facility] How often do you hav e 6 or more drinks on 1 occasion? Never [facility] How hard is it for y ou to pay for the very basics like food, housing, medical care, and heating Not hard at all [facility] Do you feel stress - tense, restless, nervous, or anxious, or unable to sleep at night because your mind is troubled all the time - these days [OSQ] Only a little [facility] (I/We) worried wheth er (my/our) food would run out before (I/we) got money to buy more. Never true [facility] Start: 08-18-2020 Gender identity Identifies as male gender (finding) [facility] Start: 08-18-2020 Sexual orientation Heterosexual (chetan bingham) [facility] Clinical Notes 08-03-2017 to 08-19-2023 Pan Pool, PT - 07/21/2023 8:28 AM Pan Chow, PT - 06/22/2023 8:00 AM Pan Chow, PT - 06/13/2023 10:43 AM Allegra Maddox LPN - 05/26/2023 9:17 AM EDT Note Date & Type Note Facility 08-19-2023 Note HNO ID: [id number] Author: ALLEGRA DAVISON LPN Service: ? Author Type: LICENSED NURSE Type: Progress Notes Filed: 08/19/2023 18:42 Note Text: Scan on 08/18/2023 4:21 PM by Amy Quiñones PA-C: Consultation - [facility] 08-11-2023 Note HNO ID: [id number] Author: Allegra Davison LPN Service: ? Author Type: LICENSED NURSE Type: Progress Notes Filed: 08/11/2023 11:28 PM Note Text: Scan on 08/10/2023 10:11 AM by ProviderAmy PA-C: Hematology [facility] 08-10-2023 Note HNO ID: [id number] Author: Nisha Alonzo LPN Service: ? Author Type: LICENSED NURSE Type: Progress Notes Filed: 08/10/2023 4:33 PM Note Text: Scan on 08/10/2023 10:34 AM by Amy Quiñones PA-C: Chemistry [facility] 07-21-2023 Note HNO ID: [id number] Author: Pan Pool, PT Service: ? Author Type: Physical Therapist Type: Progress Notes Filed: 07/21/2023 8:59 AM Note Text: Episode Visit Count: 8 Therapist That Will Accept/Oversee The Plan Of Care: Pan Pool Start of Care Date: 04/29/23 Onset Date: 04/29/22 Plan of Care Certification Date: 06/22/23 Next Certification Due Date: 07/27/23 Patient Identified by Name and Date of : Yes REHABILITATION AND SPORTS THERAPY PHYSICAL THERAPY DISCONTINUANCE OF CARE PLAN OF CARE UPDATE: Assessment: Frank Monge is discontinued from Physical Therapy services due to maximal benefit.. Patient was seen for 8 visits from Start of Care Date: 04/29/23 to 07/21/2023 and treatment included: Therapeutic exercise, Manual therapy, Self-fpc management, and Patient/Family/Caregiver Education. Goals updated 07/21/2023 Goals for Episode of Care: created on 04/29/23 through 06/24/23 Independent in home exercises. - MET Stand / Walk indefinitely without pain/symptoms. - Progressing, will continue Improve hip SG to WNL ROM for improved mobility and decreased pain - MET Pt will be able to perform single leg heel raise in 8 weeks or less - MET Patient Goals: Decreased neuropathy (peripheral) SUBJECTIVE: The trip was great. Had to walk on a lot of cobblestone. The feet held up better than he thought it would. But some days the feet would get tight. No back pain today. Did the exercises usually twice a day when on vacation and he would also get into a warm whirlpool. The symptoms overall have improved by 50% and he does not have to worry about his balance so much. Pain: PROMIS Scales Higher is Better 07/19/2023 06/11/2023 04/29/2023 Phys Func - Score 52 (within normal limits) 49 (within normal limits) 55 (within normal limits) Phys Func - Percentile 58% 46% 69% Self-Eff Symptom - Score 69 (High) 50 (Average) 57 (Average) Self-Eff Symptom - Percentile 97% 50% 76% T-scores: mean of general population = 50. 5 points is clinically meaningfully difference Percentiles provide an indication of how the patient's score ranks in relation to the general population. Higher percentile rankings indicate better function/quality of life. 50th percentile is the average of the general population and indicates half of respondents had a worse score. OBJECTIVE MEASURES WITH LEVEL OF FUNCTION: Lumbar Spine AROM Lumbar Flexion: Normal Lumbar Extension: Normal Lumbar R Side Golva: Normal Lumbar L Side Golva: Normal Lumbar R Side-Bend: Normal Lumbar L Side-Bend: Normal Lumbar R Rotation: Normal Lumbar L Rotation: Normal LE AROM R LE AROM: WNL L LE AROM: WNL TREATMENT: Manual Therapy: 1: All objective measures taken 2: Firm pressure with elbow along lumbar and thoracic paraspinals bilat 3: Lumbar distraction using forearms in prone x 10 4: Bowstringing paraspinals of lumbar region bilat 5: Index knobblet to paraspinals and QL bilat with firm pressure Skilled Intervention: Manual skills to improve joint mobility, ROM, and decrease pain. Utilized anatomy knowledge of the therapist, and assessment of patient's response to intervention. Billing Manual TherapyTreatment Minutes: 28 Skilled Treatment Time Minutes (timed and untimed codes): 28 Total Session Time (minutes): Session Start Time : 827 Session Stop Time : 855 Pan Pool PT [facility] 07-21-2023 History of Presen t illness Narrative Episode Visit Count: 8 Therapist That Will Accept/Oversee The Plan Of Care: Pan Pool Start of Care Date: 04/29/23 Onset Date: 04/29/22 Plan of Care Certification Date: 06/22/23 Next Certification Due Date: 07/27/23 Patient Identified by Name and Date of : Yes REHABILITATION AND SPORTS THERAPY PHYSICAL THERAPY DISCONTINUANCE OF CARE PLAN OF CARE UPDATE: Assessment: Frank Monge is discontinued from Physical Therapy services due to maximal benefit.. Patient was seen for 8 visits from Start of Care Date: 04/29/23 to 07/21/2023 and treatment included: Therapeutic exercise, Manual therapy, Self-fpc management, and Patient/Family/Caregiver Education. Goals updated 07/21/2023 Goals for Episode of Care: created on 04/29/23 through 06/24/23 Independent in home exercises. - MET Stand / Walk indefinitely without pain/symptoms. - Progressing, will continue Improve hip SG to WNL ROM for improved mobility and decreased pain - MET Pt will be able to perform single leg heel raise in 8 weeks or less - MET Patient Goals: Decreased neuropathy (peripheral) SUBJECTIVE: The trip was great. Had to walk on a lot of cobblestone. The feet held up better than he thought it would. But some days the feet would get tight. No back pain today. Did the exercises usually twice a day when on vacation and he would also get into a warm whirlpool. The symptoms overall have improved by 50% and he does not have to worry about his balance so much. Pain: PROMIS Scales Higher is Better 07/19/2023 06/11/2023 04/29/2023 Phys Func - Score 52 (within normal limits) 49 (within normal limits) 55 (within normal limits) Phys Func - Percentile 58% 46% 69% Self-Eff Symptom - Score 69 (High) 50 (Average) 57 (Average) Self-Eff Symptom - Percentile 97% 50% 76% T-scores: mean of general population = 50. 5 points is clinically meaningfully difference Percentiles provide an indication of how the patient's score ranks in relation to the general population. Higher percentile rankings indicate better function/quality of life. 50th percentile is the average of the general population and indicates half of respondents had a worse score. OBJECTIVE MEASURES WITH LEVEL OF FUNCTION: Lumbar Spine AROM Lumbar Flexion: Normal Lumbar Extension: Normal Lumbar R Side Golva: Normal Lumbar L Side Golva: Normal Lumbar R Side-Bend: Normal Lumbar L Side-Bend: Normal Lumbar R Rotation: Normal Lumbar L Rotation: Normal LE AROM R LE AROM: WNL L LE AROM: WNL TREATMENT: Manual Therapy: 1: All objective measures taken 2: Firm pressure with elbow along lumbar and thoracic paraspinals bilat 3: Lumbar distraction using forearms in prone x 10 4: Bowstringing paraspinals of lumbar region bilat 5: Index knobblet to paraspinals and QL bilat with firm pressure Skilled Intervention: Manual skills to improve joint mobility, ROM, and decrease pain. Utilized anatomy knowledge of the therapist, and assessment of patient's response to intervention. Billing Manual TherapyTreatment Minutes: 28 Skilled Treatment Time Minutes (timed and untimed codes): 28 Total Session Time (minutes): Session Start Time : 827 Session Stop Time : 855 Pan Pool PT documented in this encounter [facility] 06-22-2023 Note HNO ID: [id number] Author: Pan Pool PT Service: ? Author Type: Physical Therapist Type: Progress Notes Filed: 06/22/2023 8:44 AM Note Text: Episode Visit Count: 7 Therapist That Will Accept/Oversee The Plan Of Care: Pan Pool Start of Care Date: 04/29/23 Onset Date: 04/29/22 Plan of Care Certification Date: 06/22/23 Next Certification Due Date: 07/27/23 Patient Identified by Name and Date of : Yes REHABILITATION AND SPORTS THERAPY PHYSICAL THERAPY PROGRESS REPORT PLAN OF CARE UPDATE: Assessment: Frank Monge demonstrates improvements in running. He has progressed toward goals. Patient continues to present with impairments in independence in exercise and symptom management that interfere with running . Current prognosis is Good due to: current objective clinical presentation . He will benefit from continued skilled therapy services to meet the updated goals for this plan of care as noted below. Goals updated 06/22/2023 Goals for Episode of Care: created on 04/29/23 through 06/24/23 Independent in home exercises. - MET Stand / Walk indefinitely without pain/symptoms. - Progressing, will continue Improve hip SG to WNL ROM for improved mobility and decreased pain (NEW) Pt will be able to perform single leg heel raise in 8 weeks or less - MET Patient Goals: Decreased neuropathy (peripheral) Patient Goals: Decreased neuropathy (peripheral) Planned Interventions, Frequency, and Duration: 1x/month, One month Total Number of Visits Planned: 1 Patient to be seen for Therapeutic exercise (31625), Neuromuscular re-education (24831), Manual therapy (08595), Therapeutic activities (01082), Self-fpc management (10246), Patient/Family/Caregiver Education PLAN FOR NEXT VISIT: DDN as needed along lumbar paraspinals Classification Low Back Pain Subgroup Classification: Spinal mobilization subgroup: recommended visits 6. Spinal Mobilization Subgroup Classification based on: ROM loss SUBJECTIVE: Not feeling much pain. Maybe a dull. Feels pretty good with everything. Th day after he had the needling was the day he woke up without a tight sore back. The feet come and go. Would like to have one more session after his trip to make sure his back symptoms do not worsen due to travel. Patient Goals: Decreased neuropathy (peripheral) Functional Limitations: running Prior Level of Function: Independent without limitations Intake Information: Prescription present Previous Treatment: Physical Therapy Pain: Pain Pain Level: (Just a slight ache) Pain Location: Back Post Treatment Pain Post Treatment Pain Level: Better Post Treatment Pain Location: Back PROMIS Scales Higher is Better 06/11/2023 04/29/2023 11/23/2022 Phys Func - Score 49 (within normal limits) 55 (within normal limits) 43 (mild dysfunction) Phys Func - Percentile 46 % 69 % 24 % Self-Eff Symptom - Score 50 (Average) 57 (Average) 51 (Average) Self-Eff Symptom - Percentile 50 % 76 % 54 % T-scores: mean of general population = 50. 5 points is clinically meaningfully difference Percentiles provide an indication of how the patient's score ranks in relation to the general population. Higher percentile rankings indicate better function/quality of life. 50th percentile is the average of the general population and indicates half of respondents had a worse score. OBJECTIVE MEASURES WITH LEVEL OF FUNCTION: Lumbar Spine AROM Lumbar Flexion: Normal Lumbar Extension: Normal Lumbar R Side Golva: Minimal limitation Lumbar L Side Golva: Minimal limitation Lumbar R Side-Bend: Normal Lumbar L Side-Bend: Normal Lumbar R Rotation: Normal Lumbar L Rotation: Normal LE AROM R LE AROM: WNL L LE AROM: WNL LE Strength R LE Strength: Grossly 5/5 L LE Strength: Grossly 5/5 Gait Gait Observation: Gait WNL TREATMENT: Therapeutic Exercise: 1: All objective measures taken this session 2: Child's pose x 10 holding 5 sec each 3: Cat pose x 5 holding 10 sec each Skilled Intervention: Patient was educated in proper exercise technique and purpose for exercises. Provided written instruction for home exercise program to facilitate proper performance and compliance. Correct performance of therapeutic exercises was facilitated with verbal and visual cuing. Manual Therapy: Dry needling to following Trigger points: 4 Needle length: 50mm 2.0 in . [place] used 4, needles removed 4. Dry needling technique used: Pistoning and Fanning. Patient education on purpose, precautions, safety, risks, and other treatment options regarding dry needling. Verbal consent received. 1: Dry needling performed (see objective measures section for details) 2: STM firm pressure over Lumbar paraspinals Skilled Intervention: Manual skills to improve joint mobility, ROM, and decrease pain. Utilized anatomy knowledge of the therapist, and assessment of patient's response to intervention. Billing Therapeutic E (more content not included)... [facility] 06-22-2023 History of Presen t illness Narrative Episode Visit Count: 7 Therapist That Will Accept/Oversee The Plan Of Care: Pan Pool Start of Care Date: 04/29/23 Onset Date: 04/29/22 Plan of Care Certification Date: 06/22/23 Next Certification Due Date: 07/27/23 Patient Identified by Name and Date of : Yes REHABILITATION AND SPORTS THERAPY PHYSICAL THERAPY PROGRESS REPORT PLAN OF CARE UPDATE: Assessment: Frank Monge demonstrates improvements in running. He has progressed toward goals. Patient continues to present with impairments in independence in exercise and symptom management that interfere with running . Current prognosis is Good due to: current objective clinical presentation . He will benefit from continued skilled therapy services to meet the updated goals for this plan of care as noted below. Goals updated 06/22/2023 Goals for Episode of Care: created on 04/29/23 through 06/24/23 Independent in home exercises. - MET Stand / Walk indefinitely without pain/symptoms. - Progressing, will continue Improve hip SG to WNL ROM for improved mobility and decreased pain (NEW) Pt will be able to perform single leg heel raise in 8 weeks or less - MET Patient Goals: Decreased neuropathy (peripheral) Patient Goals: Decreased neuropathy (peripheral) Planned Interventions, Frequency, and Duration: 1x/month, One month Total Number of Visits Planned: 1 Patient to be seen for Therapeutic exercise (99184), Neuromuscular re-education (26520), Manual therapy (15073), Therapeutic activities (02706), Self-fpc management (62039), Patient/Family/Caregiver Education PLAN FOR NEXT VISIT: DDN as needed along lumbar paraspinals Classification Low Back Pain Subgroup Classification: Spinal mobilization subgroup: recommended visits 6. Spinal Mobilization Subgroup Classification based on: ROM loss SUBJECTIVE: Not feeling much pain. Maybe a dull. Feels pretty good with everything. Th day after he had the needling was the day he woke up without a tight sore back. The feet come and go. Would like to have one more session after his trip to make sure his back symptoms do not worsen due to travel. Patient Goals: Decreased neuropathy (peripheral) Functional Limitations: running Prior Level of Function: Independent without limitations Intake Information: Prescription present Previous Treatment: Physical Therapy Pain: Pain Pain Level: (Just a slight ache) Pain Location: Back Post Treatment Pain Post Treatment Pain Level: Better Post Treatment Pain Location: Back PROMIS Scales Higher is Better 06/11/2023 04/29/2023 11/23/2022 Phys Func - Score 49 (within normal limits) 55 (within normal limits) 43 (mild dysfunction) Phys Func - Percentile 46 % 69 % 24 % Self-Eff Symptom - Score 50 (Average) 57 (Average) 51 (Average) Self-Eff Symptom - Percentile 50 % 76 % 54 % T-scores: mean of general population = 50. 5 points is clinically meaningfully difference Percentiles provide an indication of how the patient's score ranks in relation to the general population. Higher percentile rankings indicate better function/quality of life. 50th percentile is the average of the general population and indicates half of respondents had a worse score. OBJECTIVE MEASURES WITH LEVEL OF FUNCTION: Lumbar Spine AROM Lumbar Flexion: Normal Lumbar Extension: Normal Lumbar R Side Golva: Minimal limitation Lumbar L Side Golva: Minimal limitation Lumbar R Side-Bend: Normal Lumbar L Side-Bend: Normal Lumbar R Rotation: Normal Lumbar L Rotation: Normal LE AROM R LE AROM: WNL L LE AROM: WNL LE Strength R LE Strength: Grossly 5/5 L LE Strength: Grossly 5/5 Gait Gait Observation: Gait WNL TREATMENT: Therapeutic Exercise: 1: All objective measures taken this session 2: Child's pose x 10 holding 5 sec each 3: Cat pose x 5 holding 10 sec each Skilled Intervention: Patient was educated in proper exercise technique and purpose for exercises. Provided written instruction for home exercise program to facilitate proper performance and compliance. Correct performance of therapeutic exercises was facilitated with verbal and visual cuing. Manual Therapy: Dry needling to following Trigger points: 4 Needle length: 50mm 2.0 in . [place] used 4, needles removed 4. Dry needling technique used: Pistoning and Fanning. Patient education on purpose, precautions, safety, risks, and other treatment options regarding dry needling. Verbal consent received. 1: Dry needling performed (see objective measures section for details) 2: STM firm pressure over Lumbar paraspinals Skilled Intervention: Manual skills to improve joint mobility, ROM, and decrease pain. Utilized anatomy knowledge of the therapist, and assessment of patient's response to intervention. Billing Therapeutic Exercise Treatment Minutes: 18 Manual TherapyTreatment Minutes: 22 Skilled Treatment Time Minutes (timed and untimed codes): 40 Total Session Time (minutes): 40 Session Start Time : 0800 Session Stop Time : 839 Pan Pool PT documented in this encounter [facility] 06-13-2023 Note HNO ID: [id number] Author: Pan Pool PT Service: ? Author Type: Physical Therapist Type: Progress Notes Filed: 06/13/2023 11:31 AM Note Text: Episode Visit Count: 6 Therapist That Will Accept/Oversee The Plan Of Care: Pan Pool Start of Care Date: 04/29/23 Onset Date: 04/29/22 Plan of Care Certification Date: 05/23/23 Next Certification Due Date: 06/27/23 Patient Identified by Name and Date of : Yes REHABILITATION AND SPORTS THERAPY PHYSICAL THERAPY TREATMENT NOTE ASSESSMENT: Frank Monge tolerated the session with decreased symptoms and no issues. He demonstrated improvements in lumbar AROM. The patient will continue to benefit from ongoing skilled physical therapy for reassessment by supervising therapist. No adverse events to dry needling and consent from the patient obtained after explaining risks and benefits. PLAN FOR NEXT VISIT: DDN as needed along lumbar spine. Finalize HEP. SUBJECTIVE: Pt feels that he is 75% improved overall. Can feel his feet more. About ready to be done with formal PT. Feels he is walking normally. Pain: Pain Pain Level: (Not rated) Pain Location: Back Post Treatment Pain Post Treatment Pain Level: Better Post Treatment Pain Location: Back OBJECTIVE MEASURES WITH LEVEL OF FUNCTION: Lumbar Spine AROM Lumbar Flexion: Normal Lumbar Extension: Normal Lumbar R Side Golva: Minimal limitation Lumbar L Side Golva: Minimal limitation Lumbar R Side-Bend: Normal Lumbar L Side-Bend: Normal Lumbar R Rotation: Normal Lumbar L Rotation: Normal Dry needling to following Trigger points: along the lumbar multifidi and longissimus muscles bilaterally Needle length: 60mm 2.5 in. [place] used 2, needles removed 2. Dry needling technique used: Pistoning and Deep needling. Patient education on purpose, precautions, safety, risks, and other treatment options regarding dry needling. Verbal consent received. Min limitation to hip SG and sidebending of L spine but improved to WNL post needling TREATMENT: Therapeutic Exercise: 1: Cat/cow x 10 2: Child's pose x 10 holding 5 sec each 3: Captain david 3 x 30 sec each side using chair 4: SKTC x 5 5: DKTC x 3 holding 10 sec each 6: Hooklying bridge 3 x 10 Skilled Intervention: Patient was educated in proper exercise technique and purpose for exercises. Correct performance of therapeutic exercises was facilitated with verbal and visual cuing. Manual Therapy: 1: Dry needling performed (see objective measures section for details) 2: STM firm pressure over Lumbar paraspinals Skilled Intervention: Manual skills to improve joint mobility, ROM, and decrease pain. Utilized anatomy knowledge of the therapist, and assessment of patient's response to intervention. Billing Therapeutic Exercise Treatment Minutes: 33 Manual TherapyTreatment Minutes: 10 Skilled Treatment Time Minutes (timed and untimed codes): 43 Total Session Time (minutes): 43 Session Start Time : 1043 Session Stop Time : 112 Pan Pool PT [facility] 06-13-2023 History of Presen t illness Narrative Episode Visit Count: 6 Therapist That Will Accept/Oversee The Plan Of Care: Pan Pool Start of Care Date: 04/29/23 Onset Date: 04/29/22 Plan of Care Certification Date: 05/23/23 Next Certification Due Date: 06/27/23 Patient Identified by Name and Date of : Yes REHABILITATION AND SPORTS THERAPY PHYSICAL THERAPY TREATMENT NOTE ASSESSMENT: Frank Monge tolerated the session with decreased symptoms and no issues. He demonstrated improvements in lumbar AROM. The patient will continue to benefit from ongoing skilled physical therapy for reassessment by supervising therapist. No adverse events to dry needling and consent from the patient obtained after explaining risks and benefits. PLAN FOR NEXT VISIT: DDN as needed along lumbar spine. Finalize HEP. SUBJECTIVE: Pt feels that he is 75% improved overall. Can feel his feet more. About ready to be done with formal PT. Feels he is walking normally. Pain: Pain Pain Level: (Not rated) Pain Location: Back Post Treatment Pain Post Treatment Pain Level: Better Post Treatment Pain Location: Back OBJECTIVE MEASURES WITH LEVEL OF FUNCTION: Lumbar Spine AROM Lumbar Flexion: Normal Lumbar Extension: Normal Lumbar R Side Golva: Minimal limitation Lumbar L Side Golva: Minimal limitation Lumbar R Side-Bend: Normal Lumbar L Side-Bend: Normal Lumbar R Rotation: Normal Lumbar L Rotation: Normal Dry needling to following Trigger points: along the lumbar multifidi and longissimus muscles bilaterally Needle length: 60mm 2.5 in. [place] used 2, needles removed 2. Dry needling technique used: Pistoning and Deep needling. Patient education on purpose, precautions, safety, risks, and other treatment options regarding dry needling. Verbal consent received. Min limitation to hip SG and sidebending of L spine but improved to WNL post needling TREATMENT: Therapeutic Exercise: 1: Cat/cow x 10 2: Child's pose x 10 holding 5 sec each 3: Captain david 3 x 30 sec each side using chair 4: SKTC x 5 5: DKTC x 3 holding 10 sec each 6: Hooklying bridge 3 x 10 Skilled Intervention: Patient was educated in proper exercise technique and purpose for exercises. Correct performance of therapeutic exercises was facilitated with verbal and visual cuing. Manual Therapy: 1: Dry needling performed (see objective measures section for details) 2: STM firm pressure over Lumbar paraspinals Skilled Intervention: Manual skills to improve joint mobility, ROM, and decrease pain. Utilized anatomy knowledge of the therapist, and assessment of patient's response to intervention. Billing Therapeutic Exercise Treatment Minutes: 33 Manual TherapyTreatment Minutes: 10 Skilled Treatment Time Minutes (timed and untimed codes): 43 Total Session Time (minutes): 43 Session Start Time : 1043 Session Stop Time : 1126 Pan Pool PT documented in this encounter [facility] 05-26-2023 Note HNO ID: [id number] Author: Allegra Davison LPN Service: ? Author Type: ? Type: Progress Notes Filed: 05/30/2023 1:15 PM Note Text: Scan on 05/24/2023 1:18 PM by ProviderAmy PA-C: Consultation - [facility] 05-26-2023 History of Presen t illness Narrative Scan on 05/24/2023 1:18 PM by ProviderAmy PAYohanaC: Consultation - documented in this encounter [facility] 05-23-2023 Note HNO ID: [id number] Author: Pan Pool PT Service: ? Author Type: Physical Therapist Type: Progress Notes Filed: 05/23/2023 11:37 AM Note Text: Episode Visit Count: 5 Therapist That Will Accept/Oversee The Plan Of Care: Pan Pool Start of Care Date: 04/29/23 Onset Date: 04/29/22 Plan of Care Certification Date: 05/23/23 Next Certification Due Date: 06/27/23 Patient Identified by Name and Date of : Yes REHABILITATION AND SPORTS THERAPY PHYSICAL THERAPY PROGRESS REPORT PLAN OF CARE UPDATE: Assessment: Frank Monge demonstrates improvements in balance, pain/symptoms, and improvements in level of independence with the HEP. He has progressed toward goals. Patient continues to present with impairments in independence in exercise and symptom management that interfere with walking . Current prognosis is Good due to: current objective clinical presentation . He will benefit from continued skilled therapy services to meet the updated goals for this plan of care as noted below. Goals for Episode of Care: created on 04/29/23 through 06/24/23 Independent in home exercises. Stand / Walk indefinitely without pain/symptoms. Pt will be able to perform single leg heel raise in 8 weeks or less Patient Goals: Decreased neuropathy (peripheral) Patient Goals: Decreased neuropathy (peripheral) Planned Interventions, Frequency, and Duration: 1x/month, One month Total Number of Visits Planned: 1 Patient to be seen for Therapeutic exercise (70002), Neuromuscular re-education (35635), Manual therapy (24409), Therapeutic activities (91013), Self-fpc management (86512), Patient/Family/Caregiver Education PLAN FOR NEXT VISIT: Re-assessment Classification Low Back Pain Subgroup Classification: Spinal mobilization subgroup: recommended visits 6. Spinal Mobilization Subgroup Classification based on: ROM loss SUBJECTIVE: Pt feels 75% improved overall. Feels that the balance is better. He can get his pants on without losing his balance. Pt feels safer. Patient Goals: Decreased neuropathy (peripheral) Functional Limitations: walking Prior Level of Function: Independent without limitations Intake Information: Prescription present Previous Treatment: Physical Therapy Pain: Pain Pain Level: 0 Pain Location: Foot - Left, Foot - Right PROMIS Scales Higher is Better 04/29/2023 11/23/2022 10/25/2022 Phys Func - Score 55 (within normal limits) 43 (mild dysfunction) 55 (within normal limits) Phys Func - Percentile 69 % 24 % 69 % Self-Eff Symptom - Score 57 (Average) 51 (Average) 44 (Average) Self-Eff Symptom - Percentile 76 % 54 % 27 % T-scores: mean of general population = 50. 5 points is clinically meaningfully difference Percentiles provide an indication of how the patient's score ranks in relation to the general population. Higher percentile rankings indicate better function/quality of life. 50th percentile is the average of the general population and indicates half of respondents had a worse score. OBJECTIVE MEASURES WITH LEVEL OF FUNCTION: Lumbar Spine AROM Lumbar Flexion: Normal Lumbar Extension: Normal Lumbar R Side-Bend: Normal Lumbar L Side-Bend: Normal Lumbar R Rotation: Normal Lumbar L Rotation: Normal LE AROM R LE AROM: WFL L LE AROM: WFL LE Strength R LE Strength: Grossly 5/5 L LE Strength: Grossly 5/5 R Ankle Plantar Flexion: 4+/5 L Ankle Plantar Flexion: 5/5 Gait Gait Observation: Gait WNL Can perform SL heel raise bilat now TREATMENT: Therapeutic Exercise: 1: All objective measures taken this session 2: Supine Hip flexor stretch 2 x 30 sec each side 3: Child's Pose x 10 4: Supine piriformis stretch 3 x 30 sec each leg 5: SKTC x 5 6: DKTC x 10 Skilled Intervention: Patient was educated in proper exercise technique and purpose for exercises. Correct performance of therapeutic exercises was facilitated with verbal and visual cuing. Billing Therapeutic Exercise Treatment Minutes: 39 Skilled Treatment Time Minutes (timed and untimed codes): 39 Total Session Time (minutes): 39 Session Start Time : 914 Session Stop Time : 953 Pan Pool PT [facility] 05-23-2023 History of Presen t illness Narrative Episode Visit Count: 5 Therapist That Will Accept/Oversee The Plan Of Care: Pan Pool Start of Care Date: 04/29/23 Onset Date: 04/29/22 Plan of Care Certification Date: 05/23/23 Next Certification Due Date: 06/27/23 Patient Identified by Name and Date of : Yes REHABILITATION AND SPORTS THERAPY PHYSICAL THERAPY PROGRESS REPORT PLAN OF CARE UPDATE: Assessment: Frank Monge demonstrates improvements in balance, pain/symptoms, and improvements in level of independence with the HEP. He has progressed toward goals. Patient continues to present with impairments in independence in exercise and symptom management that interfere with walking . Current prognosis is Good due to: current objective clinical presentation . He will benefit from continued skilled therapy services to meet the updated goals for this plan of care as noted below. Goals for Episode of Care: created on 04/29/23 through 06/24/23 Independent in home exercises. Stand / Walk indefinitely without pain/symptoms. Pt will be able to perform single leg heel raise in 8 weeks or less Patient Goals: Decreased neuropathy (peripheral) Patient Goals: Decreased neuropathy (peripheral) Planned Interventions, Frequency, and Duration: 1x/month, One month Total Number of Visits Planned: 1 Patient to be seen for Therapeutic exercise (63476), Neuromuscular re-education (77962), Manual therapy (08316), Therapeutic activities (85022), Self-fpc management (73679), Patient/Family/Caregiver Education PLAN FOR NEXT VISIT: Re-assessment Classification Low Back Pain Subgroup Classification: Spinal mobilization subgroup: recommended visits 6. Spinal Mobilization Subgroup Classification based on: ROM loss SUBJECTIVE: Pt feels 75% improved overall. Feels that the balance is better. He can get his pants on without losing his balance. Pt feels safer. Patient Goals: Decreased neuropathy (peripheral) Functional Limitations: walking Prior Level of Function: Independent without limitations Intake Information: Prescription present Previous Treatment: Physical Therapy Pain: Pain Pain Level: 0 Pain Location: Foot - Left, Foot - Right PROMIS Scales Higher is Better 04/29/2023 11/23/2022 10/25/2022 Phys Func - Score 55 (within normal limits) 43 (mild dysfunction) 55 (within normal limits) Phys Func - Percentile 69 % 24 % 69 % Self-Eff Symptom - Score 57 (Average) 51 (Average) 44 (Average) Self-Eff Symptom - Percentile 76 % 54 % 27 % T-scores: mean of general population = 50. 5 points is clinically meaningfully difference Percentiles provide an indication of how the patient's score ranks in relation to the general population. Higher percentile rankings indicate better function/quality of life. 50th percentile is the average of the general population and indicates half of respondents had a worse score. OBJECTIVE MEASURES WITH LEVEL OF FUNCTION: Lumbar Spine AROM Lumbar Flexion: Normal Lumbar Extension: Normal Lumbar R Side-Bend: Normal Lumbar L Side-Bend: Normal Lumbar R Rotation: Normal Lumbar L Rotation: Normal LE AROM R LE AROM: WFL L LE AROM: WFL LE Strength R LE Strength: Grossly 5/5 L LE Strength: Grossly 5/5 R Ankle Plantar Flexion: 4+/5 L Ankle Plantar Flexion: 5/5 Gait Gait Observation: Gait WNL Can perform SL heel raise bilat now TREATMENT: Therapeutic Exercise: 1: All objective measures taken this session 2: Supine Hip flexor stretch 2 x 30 sec each side 3: Child's Pose x 10 4: Supine piriformis stretch 3 x 30 sec each leg 5: SKTC x 5 6: DKTC x 10 Skilled Intervention: Patient was educated in proper exercise technique and purpose for exercises. Correct performance of therapeutic exercises was facilitated with verbal and visual cuing. Billing Therapeutic Exercise Treatment Minutes: 39 Skilled Treatment Time Minutes (timed and untimed codes): 39 Total Session Time (minutes): 39 Session Start Time : 914 Session Stop Time : 953 Pan Pool PT documented in this encounter [facility] 05-16-2023 Note HNO ID: [id number] Author: Pan Pool PT Service: ? Author Type: Physical Therapist Type: Progress Notes Filed: 05/16/2023 4:51 PM Note Text: Episode Visit Count: 4 Therapist That Will Accept/Oversee The Plan Of Care: Pan Pool Start of Care Date: 04/29/23 Onset Date: 04/29/22 Plan of Care Certification Date: 04/29/23 Next Certification Due Date: 06/03/23 Patient Identified by Name and Date of : Yes REHABILITATION AND SPORTS THERAPY PHYSICAL THERAPY TREATMENT NOTE ASSESSMENT: Frank Monge tolerated the session with no issues. He demonstrated good form with all therapeutic exercises. The patient will continue to benefit from ongoing skilled physical therapy for reassessment by supervising therapist. PLAN FOR NEXT VISIT: POC update SUBJECTIVE: Did some mowing today. Doing good today. The feet are doing great. For the first time in awhile he can feel his feet/toes. noticed that his feet are not dragging and his posture is better. No cramping in the toes anymore. Hardly feels the symptoms that can travel into the legs. Usual gets 2-3 sets in every day. Pain: Pain Pain Location: Foot - Left, Foot - Right OBJECTIVE MEASURES WITH LEVEL OF FUNCTION: TREATMENT: Therapeutic Exercise: 1: captain clay stretch 2 x 30 sec each leg 2: Child's pose with pillow underankles (for comfort) x 10 holding 5 sec each, then off to each side x 5 3: SKTC x 10 each leg holding 5 sec each 4: DKTC 2 x 10 5: Piriformis stretch 2 x 30 sec each leg 6: LTR x 10 each side 7: Seated lumbar roll-outs blue PB F and side x 2, [address] Skilled Intervention: Patient was educated in proper exercise technique and purpose for exercises. Correct performance of therapeutic exercises was facilitated with verbal and visual cuing. Billing Therapeutic Exercise Treatment Minutes: 39 Skilled Treatment Time Minutes (timed and untimed codes): 39 Total Session Time (minutes): 39 Session Start Time : 1607 Session Stop Time : 1646 Pan Pool PT [facility] 05-09-2023 Note HNO ID: [id number] Author: Maribel Neil Ma Service: ? Author Type: ? Type: Progress Notes Filed: 05/09/2023 3:44 PM Note Text: View External Labs - Miscellaneous Lab [ID [id number]] View External Imaging - X-ray [ID [id number]] [facility] 05-09-2023 History of Presen t illness Narrative View External Labs - Miscellaneous Lab [ID [id number]] View External Imaging - X-ray [ID [id number]] documented in this encounter [facility] 05-09-2023 Note HNO ID: [id number] Author: Pan Pool PT Service: ? Author Type: Physical Therapist Type: Progress Notes Filed: 05/09/2023 9:58 AM Note Text: Episode Visit Count: 3 Therapist That Will Accept/Oversee The Plan Of Care: Pan Pool Start of Care Date: 04/29/23 Onset Date: 04/29/22 Plan of Care Certification Date: 04/29/23 Next Certification Due Date: 06/03/23 Patient Identified by Name and Date of : Yes REHABILITATION AND SPORTS THERAPY PHYSICAL THERAPY TREATMENT NOTE ASSESSMENT: Frank Monge tolerated the session with no issues. He demonstrated good tolerance to newly added therapeutic exercises. The patient will continue to benefit from ongoing skilled physical therapy to progress toward set goals. PLAN FOR NEXT VISIT: Traction at L-spine SUBJECTIVE: The pillow suggestion for sleeping on back has helped. Seeing some improvement in quality of sleep. More flexibility in the toes now and less pain. The foot can still get tight at times. Pt feels 20% overall improvement so far. Pain: Pain Pain Level: (Not rated) Pain Location: Foot - Left, Foot - Right Description: Tightness OBJECTIVE MEASURES WITH LEVEL OF FUNCTION: TREATMENT: Therapeutic Exercise: 1: Supine hip flexor stretch 2 x 30 sec each leg 2: Child's pose with pillow underankles (for comfort) x 10 holding 5 sec each, then off to each side x 5 3: SKTC x 10 each leg holding 5 sec each 4: DKTC 2 x 10 5: Piriformis stretch 2 x 30 sec each leg Skilled Intervention: Patient was educated in proper exercise technique and purpose for exercises. Correct performance of therapeutic exercises was facilitated with verbal and visual cuing. Manual Therapy: 1: Prone lumbar traction mobs x 20 each leg x 3 rounds Skilled Intervention: Manual skills to improve joint mobility, ROM, and decrease pain. Utilized anatomy knowledge of the therapist, and assessment of patient's response to intervention. Billing Therapeutic Exercise Treatment Minutes: 40 Skilled Treatment Time Minutes (timed and untimed codes): 40 Total Session Time (minutes): 40 Session Start Time : 916 Session Stop Time : 956 Pan Pool PT [facility] 05-09-2023 History of Presen t illness Narrative Episode Visit Count: 3 Therapist That Will Accept/Oversee The Plan Of Care: Pan Pool Start of Care Date: 04/29/23 Onset Date: 04/29/22 Plan of Care Certification Date: 04/29/23 Next Certification Due Date: 06/03/23 Patient Identified by Name and Date of : Yes REHABILITATION AND SPORTS THERAPY PHYSICAL THERAPY TREATMENT NOTE ASSESSMENT: Frank Monge tolerated the session with no issues. He demonstrated good tolerance to newly added therapeutic exercises. The patient will continue to benefit from ongoing skilled physical therapy to progress toward set goals. PLAN FOR NEXT VISIT: Traction at L-spine SUBJECTIVE: The pillow suggestion for sleeping on back has helped. Seeing some improvement in quality of sleep. More flexibility in the toes now and less pain. The foot can still get tight at times. Pt feels 20% overall improvement so far. Pain: Pain Pain Level: (Not rated) Pain Location: Foot - Left, Foot - Right Description: Tightness OBJECTIVE MEASURES WITH LEVEL OF FUNCTION: TREATMENT: Therapeutic Exercise: 1: Supine hip flexor stretch 2 x 30 sec each leg 2: Child's pose with pillow underankles (for comfort) x 10 holding 5 sec each, then off to each side x 5 3: SKTC x 10 each leg holding 5 sec each 4: DKTC 2 x 10 5: Piriformis stretch 2 x 30 sec each leg Skilled Intervention: Patient was educated in proper exercise technique and purpose for exercises. Correct performance of therapeutic exercises was facilitated with verbal and visual cuing. Manual Therapy: 1: Prone lumbar traction mobs x 20 each leg x 3 rounds Skilled Intervention: Manual skills to improve joint mobility, ROM, and decrease pain. Utilized anatomy knowledge of the therapist, and assessment of patient's response to intervention. Billing Therapeutic Exercise Treatment Minutes: 40 Skilled Treatment Time Minutes (timed and untimed codes): 40 Total Session Time (minutes): 40 Session Start Time : 916 Session Stop Time : 956 Pan Pool PT documented in this encounter [facility] 05-02-2023 Note HNO ID: [id number] Author: Pan Pool PT Service: ? Author Type: Physical Therapist Type: Progress Notes Filed: 05/02/2023 9:55 AM Note Text: Episode Visit Count: 2 Therapist That Will Accept/Oversee The Plan Of Care: Pan Pool Start of Care Date: 04/29/23 Onset Date: 04/29/22 Plan of Care Certification Date: 04/29/23 Next Certification Due Date: 06/03/23 Patient Identified by Name and Date of : Yes REHABILITATION AND SPORTS THERAPY PHYSICAL THERAPY TREATMENT NOTE ASSESSMENT: Frank Monge tolerated the session with decreased symptoms. He demonstrated good form with all therapeutic exercises. The patient will continue to benefit from ongoing skilled physical therapy to progress toward set goals. PLAN FOR NEXT VISIT: MT as needed. STM. Lumbar flexion exercises SUBJECTIVE: Sometimes it feels the feet feel more normal. Do not tingle and feel tight. Sometimes it gets tight with the toes. Some level of benefit from the exercise. Was accidentally using the pillow under the low back when sleeping on the back which made the back sore. Will have pillows under the upper thighs. Pain: Pain Pain Level: (Not rated) Pain Location: Foot - Left, Foot - Right Description: Tightness OBJECTIVE MEASURES WITH LEVEL OF FUNCTION: L5 hypomobile TREATMENT: Therapeutic Exercise: 2: Child's pose with pillow underankles (for comfort) x 10 holding 5 sec each 3: SKTC x 10 each leg holding 5 sec each 4: DKTC 2 x 10 5: Seated toe touches x 10 Skilled Intervention: Patient was educated in proper exercise technique and purpose for exercises. Manual Therapy: 1: STM over lumbar paraspinals in sidelying 2: Grade 3 opening mob of R L5/S1 3: Gapping technique L L5/S1 in R sidelying Skilled Intervention: Manual skills to improve joint mobility, ROM, and decrease pain. Utilized anatomy knowledge of the therapist, and assessment of patient's response to intervention. Billing Therapeutic Exercise Treatment Minutes: 27 Manual TherapyTreatment Minutes: 15 Skilled Treatment Time Minutes (timed and untimed codes): 42 Total Session Time (minutes): 42 Session Start Time : 911 Session Stop Time : 953 Pan Pool PT [facility] 05-02-2023 History of Presen t illness Narrative Episode Visit Count: 2 Therapist That Will Accept/Oversee The Plan Of Care: Pan Pool Start of Care Date: 04/29/23 Onset Date: 04/29/22 Plan of Care Certification Date: 04/29/23 Next Certification Due Date: 06/03/23 Patient Identified by Name and Date of : Yes REHABILITATION AND SPORTS THERAPY PHYSICAL THERAPY TREATMENT NOTE ASSESSMENT: Frank Monge tolerated the session with decreased symptoms. He demonstrated good form with all therapeutic exercises. The patient will continue to benefit from ongoing skilled physical therapy to progress toward set goals. PLAN FOR NEXT VISIT: MT as needed. STM. Lumbar flexion exercises SUBJECTIVE: Sometimes it feels the feet feel more normal. Do not tingle and feel tight. Sometimes it gets tight with the toes. Some level of benefit from the exercise. Was accidentally using the pillow under the low back when sleeping on the back which made the back sore. Will have pillows under the upper thighs. Pain: Pain Pain Level: (Not rated) Pain Location: Foot - Left, Foot - Right Description: Tightness OBJECTIVE MEASURES WITH LEVEL OF FUNCTION: L5 hypomobile TREATMENT: Therapeutic Exercise: 2: Child's pose with pillow underankles (for comfort) x 10 holding 5 sec each 3: SKTC x 10 each leg holding 5 sec each 4: DKTC 2 x 10 5: Seated toe touches x 10 Skilled Intervention: Patient was educated in proper exercise technique and purpose for exercises. Manual Therapy: 1: STM over lumbar paraspinals in sidelying 2: Grade 3 opening mob of R L5/S1 3: Gapping technique L L5/S1 in R sidelying Skilled Intervention: Manual skills to improve joint mobility, ROM, and decrease pain. Utilized anatomy knowledge of the therapist, and assessment of patient's response to intervention. Billing Therapeutic Exercise Treatment Minutes: 27 Manual TherapyTreatment Minutes: 15 Skilled Treatment Time Minutes (timed and untimed codes): 42 Total Session Time (minutes): 42 Session Start Time : 911 Session Stop Time : 953 Pan Pool PT documented in this encounter [facility] 04-29-2023 Note HNO ID: [id number] Author: Pan Pool PT Service: ? 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 He presents with impairments in balance, independence in exercise, joint mobility, and symptom management. PROMIS? (Patient-Reported Outcomes Measurement Information System) scores were reviewed and physical function domain identified as a rehabilitation concern. Prognosis for therapy is Good due to: current objective clinical presentation . Pt demonstrates some improvement to R foot tightness with UPA to L5 which is hypomobile compared with a L UPA. He will benefit from skilled therapy services to meet the goals established for this plan of care as noted below. Classification Low Back Pain Subgroup Classification: Spinal mobilization subgroup: recommended visits 6. Spinal Mobilization Subgroup Classification based on: ROM loss Goals for Episode of Care: created on 04/29/23 through 06/24/23 Independent in home exercises. Stand / Walk indefinitely without pain/symptoms. Pt will be able to perform single leg heel raise in 8 weeks or less Patient Goals: Decreased neuropathy (peripheral) Planned Interventions, Frequency, and Duration: Current Frequency: 1x/week Duration: 4 weeks Total Number of Visits Planned: 4 Planned Treatment Interventions: Therapeutic exercise (76010), Neuromuscular re-education (32674), Manual therapy (31630), Therapeutic activities (56762), Self-fpc management (58900), Patient/Family/Caregiver Education PLAN FOR NEXT VISIT: Lumbar flexion exercises. Manual to open L5/S1 on the R. Patient demonstrates good understanding of plan of care and treatment. The above goals and plan of care were discussed and agreed upon by patient/family. SUBJECTIVE: Has neuropathy bilaterally. Not sure what is causing it. Has more testing coming up. EMG showed that he does have neuropathy. Further testing on the back to see if something can be done. The tightness can come up the back of the calves. Tightner in the summer and comes and goes. Gets stiff over night and stiff in the back which gets better after 5-10 minutes. No pain, popping, or clicking in the ankle feet. The toes can cramp up. Massaging with oil on the underside of the feet can help for awhile. Patient Goals: Decreased neuropathy (peripheral) Functional Limitations: walking (Balance) Prior Level of Function: Independent without limitations Intake Information: Prescription present Previous Treatment: Physical Therapy Pain: PROMIS Scales Higher is Better 04/29/2023 11/23/2022 10/25/2022 Phys Func - Score 55 (within normal limits) 43 (mild dysfunction) 55 (within normal limits) Phys Func - Percentile 69 % 24 % 69 % Self-Eff Symptom - Score 57 (Average) 51 (Average) 44 (Average) Self-Eff Symptom - Percentile 76 % 54 % 27 % T-scores: mean of general population = 50. 5 points is clinically meaningfully difference Percentiles provide an indication of how the patient's score ranks in relation to the general population. Higher percentile rankings indicate better function/quality of life. 50th percentile is the average of the general population and indicates half of respondents had a worse score. OBJECTIVE MEASURES WITH LEVEL OF FUNCTION: Sensation - Lower Extremity LE Light Touch Sensation: Impaired (L5 dermatome sensation decreased R>L) Lumbar Spine AROM Lumbar Flexion: Minimal limitation (Less flexion at base of L-spine) Lumbar Extension: Minimal limitation Lumbar R Side-Bend: Normal Lumbar L Side-Bend: Normal Lumbar R Rotation: Normal Lumbar L Rotation: Normal LE AROM Tested?: Yes LE AROM R LE AROM: WNL L LE AROM: WNL Spine Joint Mobility Spine Joint Mobility : Lumbar/Thoracic Joint Mobility - L1: WNL Joint Mobility - L2: WNL Joint Mobility - L3: WNL Joint Mobility - L4: WNL Joint Mobility - L5: (R UPA hypomobile) LE Strength R LE Strength: Grossly 5/5 L LE Strength: Grossly 5/5 R Ankle Plantar Flexion: 4/5 R Ankle Plantarflexion Functional Strength (S1): Unable L Ankle Plantarflexion Functional Strength (S1): Unable Education: Education Learning Preferences: Demonstration, Explanation, Performance, Printed Materials Barriers: None Learning/educational needs: Home exercise program, Plan of Care Education Provided: Yes, see treatment interventions for education provided Education Provided To: Patient Education Mode/Type: Demonstr (more content not included)... [facility] 04-26-2023 Note HNO ID: [id number] Author: Allegra Davison LPN Service: ? Author Type: ? Type: Progress Notes Filed: 04/26/2023 8:25 AM Note Text: Scan on 04/25/2023 3:16 PM by Amy Quiñones PA-C: Neurology [facility] 04-26-2023 History of Presen t illness Narrative Scan on 04/25/2023 3:16 PM by Amy Quiñones PA-C: Neurology documented in this encounter [facility] 02-26-2023 Note HNO ID: [id number] Author: Allegra Davison LPN Service: ? Author Type: ? Type: Progress Notes Filed: 02/27/2023 1:11 PM Note Text: Scan on 02/25/2023 2:06 PM by Amy Quiñones PA-C: Consultation - Cardiology Scan on 02/25/2023 4:08 PM by Amy Quiñones PA-C: Chemistry [facility] 02-26-2023 History of Presen t illness Narrative Scan on 02/25/2023 2:06 PM by Amy Quiñones PA-C: Consultation - Cardiology Scan on 02/25/2023 4:08 PM by Amy Quiñones PA-C: Chemistry documented in this encounter [facility] 02-11-2023 Note HNO ID: [id number] Author: Pan Pool PT Service: ? Author Type: Physical Therapist Type: Progress Notes Filed: 02/11/2023 3:16 PM Note Text: 02/11/2023 [facility] REHABILITATION AND SPORTS THERAPY PHYSICAL THERAPY DISCONTINUANCE OF CARE Plan of Care Period: Start of Care Date: 10/28/22 Last Visit Date: 12/09/2022 Therapy Program: The following is a summary of the interventions provided for this episode of care; Therapeutic exercise and Manual therapy Assessment: The following is the goal status: Goals updated 11/26/2022 Goals for Episode of Care: created on 10/28/22 through 01/20/23 Pt will demo wrist ext strength of 5/5 via MMT without pain in 12 weeks or Less - Progressing, will continue [place] in home exercise program. -MET Perform gripping objects and perform weight lifting without pain. - Progressing, will continue Patient Goals: Return to PLOF without pain Based on the most recent progress report, patient was progressing as expected toward functional goals based on pain levels and documented subjective information on progress. Reason for Discontinuation of Care: Patient has not returned to therapy or scheduled additional follow-up appointments. Pan Pool PT [facility] 12-09-2022 Note HNO ID: [id number] Author: Pan Pool PT Service: ? Author Type: Physical Therapist Type: Progress Notes Filed: 12/09/2022 4:19 PM Note Text: Episode Visit Count: 7 Therapist That Will Accept/Oversee The Plan Of Care: Pan Pool Start of Care Date: 10/28/22 Onset Date: 08/30/22 Plan of Care Certification Date: 11/26/22 Next Certification Due Date: 12/31/22 Patient Identified by Name and Date of : Yes REHABILITATION AND SPORTS THERAPY PHYSICAL THERAPY TREATMENT NOTE ASSESSMENT: Frank Monge tolerated the session with no issues. He demonstrated good tolerance to therapeutic exercises. The patient will continue to benefit from ongoing skilled physical therapy for reassessment by supervising therapist. PLAN FOR NEXT VISIT: POC update SUBJECTIVE: Patient Reason for Visit: Pt states he feels so good he forgets to take care of the forearm. Feeling pretty good. Going on a trip for a few weeks and may schedule another appointment with PT if needed. Pain: Pain Pain Location: Forearm - Right OBJECTIVE MEASURES WITH LEVEL OF FUNCTION: Slight tenderness to palpation over common ext tendon TREATMENT: Therapeutic Exercise: 1: 3# wrist flexion 3 x 16 reps 2: Wrist ext 3# 3 x 15 reps 3: RD 3# 3 x 15 reps Skilled Intervention: Patient was educated in proper exercise technique and purpose for exercises. Provided written instruction for home exercise program to facilitate proper performance and compliance. Correct performance of therapeutic exercises was facilitated with verbal and visual cuing. Manual Therapy: 1: IASTM over common ext tendon and ECRB x 15 min 2: Cross friction massage over ECRB 3: Thumb gliding over Common extensor tendon and ECRB Skilled Intervention: Manual skills to improve joint mobility, ROM, and decrease pain. Utilized anatomy knowledge of the therapist, and assessment of patient's response to intervention. Billing Therapeutic Exercise Treatment Minutes: 20 Manual TherapyTreatment Minutes: 13 Total Treatment Time Minutes (timed/untimed): 33 Pan Pool, PT [facility] 12-09-2022 History of Presen t illness Narrative Episode Visit Count: 7 Therapist That Will Accept/Oversee The Plan Of Care: CorinePan Start of Care Date: 10/28/22 Onset Date: 08/30/22 Plan of Care Certification Date: 11/26/22 Next Certification Due Date: 12/31/22 Patient Identified by Name and Date of : Yes REHABILITATION AND SPORTS THERAPY PHYSICAL THERAPY TREATMENT NOTE ASSESSMENT: Frank Monge tolerated the session with no issues. He demonstrated good tolerance to therapeutic exercises. The patient will continue to benefit from ongoing skilled physical therapy for reassessment by supervising therapist. PLAN FOR NEXT VISIT: POC update SUBJECTIVE: Patient Reason for Visit: Pt states he feels so good he forgets to take care of the forearm. Feeling pretty good. Going on a trip for a few weeks and may schedule another appointment with PT if needed. Pain: Pain Pain Location: Forearm - Right OBJECTIVE MEASURES WITH LEVEL OF FUNCTION: Slight tenderness to palpation over common ext tendon TREATMENT: Therapeutic Exercise: 1: 3# wrist flexion 3 x 16 reps 2: Wrist ext 3# 3 x 15 reps 3: RD 3# 3 x 15 reps Skilled Intervention: Patient was educated in proper exercise technique and purpose for exercises. Provided written instruction for home exercise program to facilitate proper performance and compliance. Correct performance of therapeutic exercises was facilitated with verbal and visual cuing. Manual Therapy: 1: IASTM over common ext tendon and ECRB x 15 min 2: Cross friction massage over ECRB 3: Thumb gliding over Common extensor tendon and ECRB Skilled Intervention: Manual skills to improve joint mobility, ROM, and decrease pain. Utilized anatomy knowledge of the therapist, and assessment of patient's response to intervention. Billing Therapeutic Exercise Treatment Minutes: 20 Manual TherapyTreatment Minutes: 13 Total Treatment Time Minutes (timed/untimed): 33 Pan Pool PT documented in this encounter [facility] 12-03-2022 Note HNO ID: [id number] Author: Pan Pool PT Service: ? Author Type: Physical Therapist Type: Progress Notes Filed: 12/03/2022 10:09 AM Note Text: Episode Visit Count: 6 Therapist That Will Accept/Oversee The Plan Of Care: Pan Pool Start of Care Date: 10/28/22 Onset Date: 08/30/22 Plan of Care Certification Date: 11/26/22 Next Certification Due Date: 12/31/22 Patient Identified by Name and Date of : Yes REHABILITATION AND SPORTS THERAPY PHYSICAL THERAPY TREATMENT NOTE ASSESSMENT: Frank Monge tolerated the session with no issues. He demonstrated good tolerance to MT. The patient will continue to benefit from ongoing skilled physical therapy to progress toward set goals. PLAN FOR NEXT VISIT: Loading of wrist ext SUBJECTIVE: Patient Reason for Visit: Patient states he has been doing really well lately. But yesterday he did a lot of work outside with the [employer] and some other machines. The work bothered his forearm. Pain: Pain Pain Level: (Not rated) Pain Location: Forearm - Right OBJECTIVE MEASURES WITH LEVEL OF FUNCTION: TREATMENT: Therapeutic Exercise: 1: 3# wrist flexion 3 x 15 reps 2: Wrist ext 3# 3 x 15 reps 3: RD 3# 3 x 15 reps Skilled Intervention: Patient was educated in proper exercise technique and purpose for exercises. Provided written instruction for home exercise program to facilitate proper performance and compliance. Correct performance of therapeutic exercises was facilitated with verbal and visual cuing. Manual Therapy: 1: IASTM over common ext tendon and ECRB x 15 min 2: Cross friction massage over ECRB Skilled Intervention: Manual skills to improve joint mobility, ROM, and decrease pain. Utilized anatomy knowledge of the therapist, and assessment of patient's response to intervention. Billing Therapeutic Exercise Treatment Minutes: 20 Manual TherapyTreatment Minutes: 20 Total Treatment Time Minutes (timed/untimed): 40 Pan Pool PT [facility] 12-03-2022 History of Presen t illness Narrative Episode Visit Count: 6 Therapist That Will Accept/Oversee The Plan Of Care: Corine, Pan Start of Care Date: 10/28/22 Onset Date: 08/30/22 Plan of Care Certification Date: 11/26/22 Next Certification Due Date: 12/31/22 Patient Identified by Name and Date of : Yes REHABILITATION AND SPORTS THERAPY PHYSICAL THERAPY TREATMENT NOTE ASSESSMENT: Frank Monge tolerated the session with no issues. He demonstrated good tolerance to MT. The patient will continue to benefit from ongoing skilled physical therapy to progress toward set goals. PLAN FOR NEXT VISIT: Loading of wrist ext SUBJECTIVE: Patient Reason for Visit: Patient states he has been doing really well lately. But yesterday he did a lot of work outside with the [employer] and some other machines. The work bothered his forearm. Pain: Pain Pain Level: (Not rated) Pain Location: Forearm - Right OBJECTIVE MEASURES WITH LEVEL OF FUNCTION: TREATMENT: Therapeutic Exercise: 1: 3# wrist flexion 3 x 15 reps 2: Wrist ext 3# 3 x 15 reps 3: RD 3# 3 x 15 reps Skilled Intervention: Patient was educated in proper exercise technique and purpose for exercises. Provided written instruction for home exercise program to facilitate proper performance and compliance. Correct performance of therapeutic exercises was facilitated with verbal and visual cuing. Manual Therapy: 1: IASTM over common ext tendon and ECRB x 15 min 2: Cross friction massage over ECRB Skilled Intervention: Manual skills to improve joint mobility, ROM, and decrease pain. Utilized anatomy knowledge of the therapist, and assessment of patient's response to intervention. Billing Therapeutic Exercise Treatment Minutes: 20 Manual TherapyTreatment Minutes: 20 Total Treatment Time Minutes (timed/untimed): 40 Pan Pool PT documented in this encounter [facility] 11-26-2022 Note HNO ID: [id number] Author: Pan Pool PT Service: ? Author Type: Physical Therapist Type: Progress Notes Filed: 11/26/2022 1:20 PM Note Text: Episode Visit Count: 5 Therapist That Will Accept/Oversee The Plan Of Care: Pan Pool Start of Care Date: 10/28/22 Onset Date: 08/30/22 Plan of Care Certification Date: 11/26/22 Next Certification Due Date: 12/31/22 Patient Identified by Name and Date of : Yes REHABILITATION AND SPORTS THERAPY PHYSICAL THERAPY PROGRESS REPORT PLAN OF CARE UPDATE: Assessment: Frank Monge demonstrates difficulty with gripping and lifting objects and improvements in overall tolerance to gripping and lifting objects per pt report. He has progressed toward goals. Patient continues to present with impairments in independence in exercise, strength, and tissue tenderness that interfere with lifting . Current prognosis is Good due to: current objective clinical presentation . He will benefit from continued skilled therapy services to meet the updated goals for this plan of care as noted below. Goals updated 11/26/2022 Goals for Episode of Care: created on 10/28/22 through 01/20/23 Pt will demo wrist ext strength of 5/5 via MMT without pain in 12 weeks or Less - Progressing, will continue [place] in home exercise program. -MET Perform gripping objects and perform weight lifting without pain. - Progressing, will continue Patient Goals: Return to PLOF without pain Patient Goals: Return to PLOF without pain Planned Interventions, Frequency, and Duration: 1x/week, 4 weeks Total Number of Visits Planned: 4 Patient to be seen for Therapeutic exercise (52136), Neuromuscular re-education (77675), Manual therapy (12798), Self-fpc management (17433), Patient/Family/Caregiver Education PLAN FOR NEXT VISIT: IASTM as tolerated. Progress wrist ext loading SUBJECTIVE: Patient Reason for Visit: The forearm has been doing better. Been busy working lately. Pt states that in 2 weeks he will be on vacation. Pt states that he feels 40-50% overall improvement. 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 Patient Goals: Return to PLOF without pain Functional Limitations: lifting Prior Level of Function: Independent without limitations Intake Information: Prescription present Previous Treatment: Ice Pain: Pain Pain Location: Forearm - Right PROMIS Scales Higher is Better 11/23/2022 10/25/2022 Phys Func - Score 43 (mild dysfunction) 55 (within normal limits) Phys Func - Percentile 24 % 69 % Self-Eff Symptom - Score 51 (Average) 44 (Average) Self-Eff Symptom - Percentile 54 % 27 % T-scores: mean of general population = 50. 5 points is clinically meaningfully difference Percentiles provide an indication of how the patient's score ranks in relation to the general population. Higher percentile rankings indicate better function/quality of life. 50th percentile is the average of the general population and indicates half of respondents had a worse score. OBJECTIVE MEASURES WITH LEVEL OF FUNCTION: UE AROM R UE AROM: WNL L UE AROM: WNL UE and Cervical Strength R Wrist Flexion: 4+/5 (Less pain response) TTP ECRB and common extensor tendon TREATMENT: Therapeutic Exercise: 1: 2# wrist ext x 15 reps 2: 3# wrist ext x 15 reps 3: RD 3# 2 x 10 reps 4: Wrist flexion 3# 2 x 15 reps 5: All objective measures taken this session Skilled Intervention: Patient was educated in proper exercise technique and purpose for exercises. Correct performance of therapeutic exercises was facilitated with verbal and visual cuing. Manual Therapy: 1: IASTM over common ext tendon and ECRB x 15 min 2: Cross friction massage over ECRB Skilled Intervention: Manual skills to improve joint mobility, ROM, and decrease pain. Utilized anatomy knowledge of the therapist, and assessment of patient's response to intervention. Billing Therapeutic Exercise Treatment Minutes: 23 Manual TherapyTreatment Minutes: 19 Total Treatment Time Minutes (timed/untimed): 42 Pan Pool, PT [facility] 11-26-2022 History of Presen t illness Narrative Episode Visit Count: 5 Therapist That Will Accept/Oversee The Plan Of Care: Pan Pool Start of Care Date: 10/28/22 Onset Date: 08/30/22 Plan of Care Certification Date: 11/26/22 Next Certification Due Date: 12/31/22 Patient Identified by Name and Date of : Yes REHABILITATION AND SPORTS THERAPY PHYSICAL THERAPY PROGRESS REPORT PLAN OF CARE UPDATE: Assessment: Frank Monge demonstrates difficulty with gripping and lifting objects and improvements in overall tolerance to gripping and lifting objects per pt report. He has progressed toward goals. Patient continues to present with impairments in independence in exercise, strength, and tissue tenderness that interfere with lifting . Current prognosis is Good due to: current objective clinical presentation . He will benefit from continued skilled therapy services to meet the updated goals for this plan of care as noted below. Goals updated 11/26/2022 Goals for Episode of Care: created on 10/28/22 through 01/20/23 Pt will demo wrist ext strength of 5/5 via MMT without pain in 12 weeks or Less - Progressing, will continue [place] in home exercise program. -MET Perform gripping objects and perform weight lifting without pain. - Progressing, will continue Patient Goals: Return to PLOF without pain Patient Goals: Return to PLOF without pain Planned Interventions, Frequency, and Duration: 1x/week, 4 weeks Total Number of Visits Planned: 4 Patient to be seen for Therapeutic exercise (75884), Neuromuscular re-education (20297), Manual therapy (96342), Self-fpc management (17544), Patient/Family/Caregiver Education PLAN FOR NEXT VISIT: IASTM as tolerated. Progress wrist ext loading SUBJECTIVE: Patient Reason for Visit: The forearm has been doing better. Been busy working lately. Pt states that in 2 weeks he will be on vacation. Pt states that he feels 40-50% overall improvement. 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 Patient Goals: Return to PLOF without pain Functional Limitations: lifting Prior Level of Function: Independent without limitations Intake Information: Prescription present Previous Treatment: Ice Pain: Pain Pain Location: Forearm - Right PROMIS Scales Higher is Better 11/23/2022 10/25/2022 Phys Func - Score 43 (mild dysfunction) 55 (within normal limits) Phys Func - Percentile 24 % 69 % Self-Eff Symptom - Score 51 (Average) 44 (Average) Self-Eff Symptom - Percentile 54 % 27 % T-scores: mean of general population = 50. 5 points is clinically meaningfully difference Percentiles provide an indication of how the patient's score ranks in relation to the general population. Higher percentile rankings indicate better function/quality of life. 50th percentile is the average of the general population and indicates half of respondents had a worse score. OBJECTIVE MEASURES WITH LEVEL OF FUNCTION: UE AROM R UE AROM: WNL L UE AROM: WNL UE and Cervical Strength R Wrist Flexion: 4+/5 (Less pain response) TTP ECRB and common extensor tendon TREATMENT: Therapeutic Exercise: 1: 2# wrist ext x 15 reps 2: 3# wrist ext x 15 reps 3: RD 3# 2 x 10 reps 4: Wrist flexion 3# 2 x 15 reps 5: All objective measures taken this session Skilled Intervention: Patient was educated in proper exercise technique and purpose for exercises. Correct performance of therapeutic exercises was facilitated with verbal and visual cuing. Manual Therapy: 1: IASTM over common ext tendon and ECRB x 15 min 2: Cross friction massage over ECRB Skilled Intervention: Manual skills to improve joint mobility, ROM, and decrease pain. Utilized anatomy knowledge of the therapist, and assessment of patient's response to intervention. Billing Therapeutic Exercise Treatment Minutes: 23 Manual TherapyTreatment Minutes: 19 Total Treatment Time Minutes (timed/untimed): 42 Pan Pool PT documented in this encounter [facility] 11-18-2022 Note HNO ID: [id number] Author: Pan Pool PT Service: ? Author Type: Physical Therapist Type: Progress Notes Filed: 11/18/2022 10:37 AM Note Text: Episode Visit Count: 4 Therapist That Will Accept/Oversee The Plan Of Care: Pan Pool Start of Care Date: 10/28/22 Onset Date: 08/30/22 Plan of Care Certification Date: 10/28/22 Next Certification Due Date: 12/02/22 Patient Identified by Name and Date of : Yes REHABILITATION AND SPORTS THERAPY PHYSICAL THERAPY TREATMENT NOTE ASSESSMENT: Frank Monge tolerated the session with decreased symptoms. He demonstrated improvements in pain levels with end range ext of the R wrist. The patient will continue to benefit from ongoing skilled physical therapy to progress toward set goals and for reassessment by supervising therapist. PLAN FOR NEXT VISIT: IASTM. POC update SUBJECTIVE: Patient Reason for Visit: May feel some slight improvment. Still wakes him up at night when laying on the forearm or in certain positions. Pain: Pain Pain Location: Forearm - Right Post Treatment Pain Post Treatment Pain Location: Forearm - Right OBJECTIVE MEASURES WITH LEVEL OF FUNCTION: TTP along ECRB TREATMENT: Therapeutic Exercise: 1: 2# wrist ext 3 x 15 2: 2# wrist flexion 3 x 12 Skilled Intervention: Patient was educated in proper exercise technique and purpose for exercises. Provided written instruction for home exercise program to facilitate proper performance and compliance. Correct performance of therapeutic exercises was facilitated with verbal cuing. Manual Therapy: 1: IASTM over common ext tendon and ECRB x 15 min 2: Cross friction massage over ECRB Skilled Intervention: Manual skills to improve joint mobility, ROM, and decrease pain. Utilized anatomy knowledge of the therapist, and assessment of patient's response to intervention. Billing Therapeutic Exercise Treatment Minutes: 10 Manual TherapyTreatment Minutes: 20 Total Treatment Time Minutes (timed/untimed): 30 Pan Pool PT [facility] 11-12-2022 Note HNO ID: [id number] Author: Pan Pool PT Service: ? Author Type: Physical Therapist Type: Progress Notes Filed: 11/12/2022 3:01 PM Note Text: Episode Visit Count: 3 Therapist That Will Accept/Oversee The Plan Of Care: Pan Pool Start of Care Date: 10/28/22 Onset Date: 08/30/22 Plan of Care Certification Date: 10/28/22 Next Certification Due Date: 12/02/22 Patient Identified by Name and Date of : Yes REHABILITATION AND SPORTS THERAPY PHYSICAL THERAPY TREATMENT NOTE ASSESSMENT: Frank Monge tolerated the session with no issues. He demonstrated reported decreased tightness in the R forearm. The patient will continue to benefit from ongoing skilled physical therapy to progress toward set goals. PLAN FOR NEXT VISIT: Continue with IASTM over wrist extensors SUBJECTIVE: Patient Reason for Visit: The pain is no worse. Not sure if it is any better. Pain: Pain Pain Level: (Not rated) Pain Location: Forearm - Right Post Treatment Pain Post Treatment Pain Location: Arm - Left OBJECTIVE MEASURES WITH LEVEL OF FUNCTION: Very tight and painful ECRB on the R TREATMENT: Therapeutic Exercise: 1: 2# wrist ext 3 x 12 2: 2# wrist flexion 3 x 12 3: Wrist ext stretch 2 x 30 sec Skilled Intervention: Patient was educated in proper exercise technique and purpose for exercises. Correct performance of therapeutic exercises was facilitated with verbal cuing. Manual Therapy: 1: IASTM over common ext tendon and ECRB x 10 min 2: Firm gliding using thumbs over wrist extensors Skilled Intervention: Manual skills to improve joint mobility, ROM, and decrease pain. Utilized anatomy knowledge of the therapist, and assessment of patient's response to intervention. Billing Therapeutic Exercise Treatment Minutes: 15 Manual TherapyTreatment Minutes: 25 Total Treatment Time Minutes (timed/untimed): 40 Pan Pool PT [facility] 11-12-2022 History of Presen t illness Narrative Episode Visit Count: 3 Therapist That Will Accept/Oversee The Plan Of Care: Pan Pool Start of Care Date: 10/28/22 Onset Date: 08/30/22 Plan of Care Certification Date: 10/28/22 Next Certification Due Date: 12/02/22 Patient Identified by Name and Date of : Yes REHABILITATION AND SPORTS THERAPY PHYSICAL THERAPY TREATMENT NOTE ASSESSMENT: Frank Monge tolerated the session with no issues. He demonstrated reported decreased tightness in the R forearm. The patient will continue to benefit from ongoing skilled physical therapy to progress toward set goals. PLAN FOR NEXT VISIT: Continue with IASTM over wrist extensors SUBJECTIVE: Patient Reason for Visit: The pain is no worse. Not sure if it is any better. Pain: Pain Pain Level: (Not rated) Pain Location: Forearm - Right Post Treatment Pain Post Treatment Pain Location: Arm - Left OBJECTIVE MEASURES WITH LEVEL OF FUNCTION: Very tight and painful ECRB on the R TREATMENT: Therapeutic Exercise: 1: 2# wrist ext 3 x 12 2: 2# wrist flexion 3 x 12 3: Wrist ext stretch 2 x 30 sec Skilled Intervention: Patient was educated in proper exercise technique and purpose for exercises. Correct performance of therapeutic exercises was facilitated with verbal cuing. Manual Therapy: 1: IASTM over common ext tendon and ECRB x 10 min 2: Firm gliding using thumbs over wrist extensors Skilled Intervention: Manual skills to improve joint mobility, ROM, and decrease pain. Utilized anatomy knowledge of the therapist, and assessment of patient's response to intervention. Billing Therapeutic Exercise Treatment Minutes: 15 Manual TherapyTreatment Minutes: 25 Total Treatment Time Minutes (timed/untimed): 40 Pan Pool PT documented in this encounter [facility] 11-04-2022 Note HNO ID: [id number] Author: Pan Pool PT Service: ? Author Type: Physical Therapist Type: Progress Notes Filed: 11/04/2022 2:51 PM Note Text: Episode Visit Count: 2 Therapist That Will Accept/Oversee The Plan Of Care: Pan Pool Start of Care Date: 10/28/22 Onset Date: 08/30/22 Plan of Care Certification Date: 10/28/22 Next Certification Due Date: 12/02/22 Patient Identified by Name and Date of : Yes REHABILITATION AND SPORTS THERAPY PHYSICAL THERAPY TREATMENT NOTE ASSESSMENT: Frank Monge tolerated the session with no issues. He demonstrated difficulty with worse pain at the elbow since last session. The patient will continue to benefit from ongoing skilled physical therapy to progress toward set goals. PLAN FOR NEXT VISIT: assess reaction to HEP. STM as needed. SUBJECTIVE: Patient Reason for Visit: The pain feels worse than the last session. The isometrics were bothering the forearm. Pain: Pain Pain Location: Forearm - Right Post Treatment Pain Post Treatment Pain Location: Arm - Left OBJECTIVE MEASURES WITH LEVEL OF FUNCTION: UE AROM R Wrist Extension: (Causes pain around the olecranon) UE and Cervical Strength R Wrist Flexion: 4/5 Pain to palpation at the olecranon [employer] isometrics do not cause pain TREATMENT: Therapeutic Exercise: 1: 2# wrist ext x 10 (too painful) 2: 1# wrist ext x 10 (Advised pt to stop lifting for now using the upper body to decrease any inflammation at the elbow) 3: 1# wrist flexion 2 x 10 4: Discussed mod to HEP to prevent pain with HEP Skilled Intervention: Patient was educated in proper exercise technique and purpose for exercises. Correct performance of therapeutic exercises was facilitated with verbal and visual cuing. Manual Therapy: 1: IASTM over common ext tendon and wrist ext muscle bellies 2: PROM wirst flexion/ext x 20 Skilled Intervention: Manual skills to improve joint mobility, ROM, and decrease pain. Utilized anatomy knowledge of the therapist, and assessment of patient's response to intervention. Billing Therapeutic Exercise Treatment Minutes: 20 Manual TherapyTreatment Minutes: 20 Total Treatment Time Minutes (timed/untimed): 40 Pan Pool, PT [facility] 11-04-2022 History of Presen t illness Narrative Episode Visit Count: 2 Therapist That Will Accept/Oversee The Plan Of Care: Pan Pool Start of Care Date: 10/28/22 Onset Date: 08/30/22 Plan of Care Certification Date: 10/28/22 Next Certification Due Date: 12/02/22 Patient Identified by Name and Date of : Yes REHABILITATION AND SPORTS THERAPY PHYSICAL THERAPY TREATMENT NOTE ASSESSMENT: Frank Monge tolerated the session with no issues. He demonstrated difficulty with worse pain at the elbow since last session. The patient will continue to benefit from ongoing skilled physical therapy to progress toward set goals. PLAN FOR NEXT VISIT: assess reaction to HEP. STM as needed. SUBJECTIVE: Patient Reason for Visit: The pain feels worse than the last session. The isometrics were bothering the forearm. Pain: Pain Pain Location: Forearm - Right Post Treatment Pain Post Treatment Pain Location: Arm - Left OBJECTIVE MEASURES WITH LEVEL OF FUNCTION: UE AROM R Wrist Extension: (Causes pain around the olecranon) UE and Cervical Strength R Wrist Flexion: 4/5 Pain to palpation at the olecranon [employer] isometrics do not cause pain TREATMENT: Therapeutic Exercise: 1: 2# wrist ext x 10 (too painful) 2: 1# wrist ext x 10 (Advised pt to stop lifting for now using the upper body to decrease any inflammation at the elbow) 3: 1# wrist flexion 2 x 10 4: Discussed mod to HEP to prevent pain with HEP Skilled Intervention: Patient was educated in proper exercise technique and purpose for exercises. Correct performance of therapeutic exercises was facilitated with verbal and visual cuing. Manual Therapy: 1: IASTM over common ext tendon and wrist ext muscle bellies 2: PROM wirst flexion/ext x 20 Skilled Intervention: Manual skills to improve joint mobility, ROM, and decrease pain. Utilized anatomy knowledge of the therapist, and assessment of patient's response to intervention. Billing Therapeutic Exercise Treatment Minutes: 20 Manual TherapyTreatment Minutes: 20 Total Treatment Time Minutes (timed/untimed): 40 Pan Pool PT documented in this encounter [facility] 10-28-2022 Note HNO ID: [id number] Author: Pan Pool PT Service: ? Author Type: Physical Therapist Type: Progress Notes Filed: 10/28/2022 2:50 PM Note Text: Episode Visit Count: 1 Therapist That Will Accept/Oversee The Plan Of Care: Pan Pool Start of Care Date: 10/28/22 Onset Date: 08/30/22 Plan of Care Certification Date: 10/28/22 Next Certification Due Date: 12/02/22 Patient Identified by Name and Date of : Yes REHABILITATION AND SPORTS THERAPY PHYSICAL THERAPY EVALUATION PLAN OF CARE: Assessment: Frank Monge presents with chief complaint of R forearm pain that interferes with lifting . He presents with impairments in independence in exercise, overall function, strength, and symptom management. PROMIS? (Patient-Reported Outcomes Measurement Information System) scores were reviewed and all domains identified as within normal limits. Prognosis for therapy is Good due to: current objective clinical presentation . Pt demonstrates a positive cozen's and maudsley's test. Pain with palpation to the R common extensor tendon. He will benefit from skilled therapy services to meet the goals established for this plan of care as noted below. Goals for Episode of Care: created on 10/28/22 through 01/20/23 Pt will demo wrist ext strength of 5/5 via MMT without pain in 12 weeks or less [place] in home exercise program. Perform gripping objects and perform weight lifting without pain. Patient Goals: Return to PLOF without pain Planned Interventions, Frequency, and Duration: Current Frequency: 1x/week Duration: 4 weeks Total Number of Visits Planned: 4 Planned Treatment Interventions: Therapeutic exercise (32232), Neuromuscular re-education (54317), Manual therapy (01033), Self-fpc management (59671), Patient/Family/Caregiver Education PLAN FOR NEXT VISIT: assess reaction to HEP. IASTM as needed. ECRB strengthening Patient demonstrates good understanding of plan of care and treatment. The above goals and plan of care were discussed and agreed upon by patient/family. SUBJECTIVE: Frank Monge is a 77 year old male seen today for Forearm pain. Occurred when liftin [facility] 2 months ago. In the weight room twice a week. Bicep curls hurts. Patient Goals: Return to PLOF without pain Functional Limitations: lifting Prior Level of Function: Independent without limitations Intake Information: Prescription present Previous Treatment: Ice Pain: Pain Pain Level: 0 (4/10 at worst) Pain Location: Forearm - Right Post Treatment Pain Post Treatment Pain Level: Better Post Treatment Pain Location: Arm - Left PROMIS Scales Higher is Better 10/25/2022 Phys Func - Score 55 (within normal limits) Phys Func - Percentile 69 % Self-Eff Symptom - Score 44 (Average) Self-Eff Symptom - Percentile 27 % T-scores: mean of general population = 50. 5 points is clinically meaningfully difference Percentiles provide an indication of how the patient's score ranks in relation to the general population. Higher percentile rankings indicate better function/quality of life. 50th percentile is the average of the general population and indicates half of respondents had a worse score. OBJECTIVE MEASURES WITH LEVEL OF FUNCTION: UE AROM R UE AROM: WNL L UE AROM: WNL AROM - R Distal UE: yes R Wrist Extension: (Pain at common ext tendon at end range) UE and Cervical Strength Strength Tested: Distal UE R UE Strength: Grossly 5/5 L UE Strength: Grossly 5/5 R Wrist Extension: 4/5 (Causes familiar pain) R lateral epicondyle appears larger than the L Education: Education Learning Preferences: Demonstration, Explanation, Performance, Printed Materials Barriers: None Learning/educational needs: Home exercise program, Plan of Care Education Provided: Yes, see treatment interventions for education provided Education Provided To: Patient Education Mode/Type: Demonstration, Explanation/Discussion, Literature/Printed Materials, Performance Response to Education/Teach Back: States/Identifies, Return Demonstration TREATMENT: PT Treatment Interventions: Therapeutic Exercise, Manual Therapy Evaluation Therapeutic Exercise: 1: Discussed therapy goals, exam findings, purpose of the HEP. HEP handout provided. 2: Wrist flexion/ext x 10 3: Seated wrist ext iso x 10 holding 5 sec each 4: Seated wrist ext isotonic with 1# x 10 reps Skilled Intervention: Patient was educated in proper exercise technique and purpose for exercises. Provided written instruction for home exercise program to facilitate proper performance and compliance. Correct performance of therapeutic exercises was facilitated with verbal cuing. Manual Therapy: 1: IASTM using boomerang over R common ext tendon and ECRB, ECRL, and extensor digitorum communis 2: Discussed self massage technique over the Common Ext tendon Skilled Intervention: Manual skills to improve joint mobility, ROM, and decrease (more content not included)... [facility] 10-28-2022 History of Presen t illness Narrative Episode Visit Count: 1 Therapist That Will Accept/Oversee The Plan Of Care: Pan Pool Start of Care Date: 10/28/22 Onset Date: 08/30/22 Plan of Care Certification Date: 10/28/22 Next Certification Due Date: 12/02/22 Patient Identified by Name and Date of : Yes REHABILITATION AND SPORTS THERAPY PHYSICAL THERAPY EVALUATION PLAN OF CARE: Assessment: Frank Monge presents with chief complaint of R forearm pain that interferes with lifting . He presents with impairments in independence in exercise, overall function, strength, and symptom management. PROMIS (Patient-Reported Outcomes Measurement Information System) scores were reviewed and all domains identified as within normal limits. Prognosis for therapy is Good due to: current objective clinical presentation . Pt demonstrates a positive cozen's and maudsley's test. Pain with palpation to the R common extensor tendon. He will benefit from skilled therapy services to meet the goals established for this plan of care as noted below. Goals for Episode of Care: created on 10/28/22 through 06/08/23 Pt will demo wrist ext strength of 5/5 via MMT without pain in 12 weeks or less [place] in home exercise program. Perform gripping objects and perform weight lifting without pain. Patient Goals: Return to PLOF without pain Planned Interventions, Frequency, and Duration: Current Frequency: 1x/week Duration: 4 weeks Total Number of Visits Planned: 4 Planned Treatment Interventions: Therapeutic exercise (32310), Neuromuscular re-education (88584), Manual therapy (66519), Self-fpc management (83467), Patient/Family/Caregiver Education PLAN FOR NEXT VISIT: assess reaction to HEP. IASTM as needed. ECRB strengthening Patient demonstrates good understanding of plan of care and treatment. The above goals and plan of care were discussed and agreed upon by patient/family. SUBJECTIVE: Frank Monge is a 77 year old male seen today for Forearm pain. Occurred when liftin [employer] 2 months ago. In the weight room twice a week. Bicep curls hurts. Patient Goals: Return to PLOF without pain Functional Limitations: lifting Prior Level of Function: Independent without limitations Intake Information: Prescription present Previous Treatment: Ice Pain: Pain Pain Level: 0 (4/10 at worst) Pain Location: Forearm - Right Post Treatment Pain Post Treatment Pain Level: Better Post Treatment Pain Location: Arm - Left PROMIS Scales Higher is Better 10/25/2022 Phys Func - Score 55 (within normal limits) Phys Func - Percentile 69 % Self-Eff Symptom - Score 44 (Average) Self-Eff Symptom - Percentile 27 % T-scores: mean of general population = 50. 5 points is clinically meaningfully difference Percentiles provide an indication of how the patient's score ranks in relation to the general population. Higher percentile rankings indicate better function/quality of life. 50th percentile is the average of the general population and indicates half of respondents had a worse score. OBJECTIVE MEASURES WITH LEVEL OF FUNCTION: UE AROM R UE AROM: WNL L UE AROM: WNL AROM - R Distal UE: yes R Wrist Extension: (Pain at common ext tendon at end range) UE and Cervical Strength Strength Tested: Distal UE R UE Strength: Grossly 5/5 L UE Strength: Grossly 5/5 R Wrist Extension: 4/5 (Causes familiar pain) R lateral epicondyle appears larger than the L Education: Education Learning Preferences: Demonstration, Explanation, Performance, Printed Materials Barriers: None Learning/educational needs: Home exercise program, Plan of Care Education Provided: Yes, see treatment interventions for education provided Education Provided To: Patient Education Mode/Type: Demonstration, Explanation/Discussion, Literature/Printed Materials, Performance Response to Education/Teach Back: States/Identifies, Return Demonstration TREATMENT: PT Treatment Interventions: Therapeutic Exercise, Manual Therapy Evaluation Therapeutic Exercise: 1: Discussed therapy goals, exam findings, purpose of the HEP. HEP handout provided. 2: Wrist flexion/ext x 10 3: Seated wrist ext iso x 10 holding 5 sec each 4: Seated wrist ext isotonic with 1# x 10 reps Skilled Intervention: Patient was educated in proper exercise technique and purpose for exercises. Provided written instruction for home exercise program to facilitate proper performance and compliance. Correct performance of therapeutic exercises was facilitated with verbal cuing. Manual Therapy: 1: IASTM using boomerang over R common ext tendon and ECRB, ECRL, and extensor digitorum communis 2: Discussed self massage technique over the Common Ext tendon Skilled Intervention: Manual skills to improve joint mobility, ROM, and decrease pain. Utilized anatomy knowledge of the therapist, and assessment of patient's response to intervention. Billing * Evaluation Low Complexity: 1 Unit Therapeutic Exercise Treatment Minutes: 15 Manual TherapyTreatment Minutes: 10 Total Treatment Time Minutes (timed/untimed): 40 Pan Pool PT documented in this encounter [facility] 10-21-2022 Note HNO ID: [id number] Author: Nisha Alonzo LPN Service: ? Author Type: ? Type: Progress Notes Filed: 10/21/2022 8:05 PM Note Text: Scan on 10/21/2022 8:40 AM by External Provider: Jaiden Alonzo LPN [facility] 10-21-2022 History of Presen t illness Narrative Scan on 10/21/2022 8:40 AM by External Provider: Jaiden Alonzo LPN documented in this encounter [facility] 10-20-2022 Note HNO ID: [id number] Author: Mekhi Vernon PA-C Service: ? Author Type: Physician Air Analysis Technician Type: Progress Notes Filed: 10/20/2022 12:43 PM Note Text: Chief Complaint Patient presents with: Pain (Elbow Pain): R elbow x 6 weeks; no known injury HPI Frank Monge is a 77 year old male who presents here today for Above Complaints.. Patient states he has been having elbow pain for about 6 weeks. Doesn't recall a specific injury but has been improving and worsening over this time frame. Has used ibuprofen, Ice and rest. Has been using a tennis elbow strap. Pain is not present with rest but if he goes to twist is forearm or try to curl weights, it worsens. Past medical history, appointments, medications, allergies reviewed. Previous Medical History PAST MEDICAL HISTORY Diagnosis Date Benign prostatic hyperplasia with urinary obstruction 07/14/2015 Dr. Mckinnon. bx benign BPH with elevated PSA 07/14/2015 Calculus of gallbladder without cholecystitis without obstruction 07/15/2016 Chronic cough 07/14/2015 Diverticulosis of colon (without mention of hemorrhage) Diverticulosis Esophagitis Hemorrhoids 11/16/2010 Hx of malignant neoplasms of skin: BCC's needing Moh's Surgery x1 stage at upper R mid bridge nose and lower medial cheek beside R nose: 09/24/2013 and 02/20/2010 03/16/2014 Impaired fasting glucose 07/26/2018 Internal hemorrhoids without mention of complication 10/18/05 Liver cyst 07/26/2018 US have been stable Liver lesion 07/15/2016 Malignant melanoma of other specified sites of skin Medicare annual wellness visit, subsequent 07/22/2021 Medicare Part B: Last done: 07/22/2021 Mild intermittent asthma, uncomplicated 01/20/2021 Peripheral polyneuropathy 08/23/2014 PERS HX 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 John yearly for exams SVT (supraventricular tachycardia) (HCC) 12/22/2012. Thoracic aortic aneurysm without rupture (HCC) 01/20/2021 Dr. Shaw Urinary calculus, unspecified Renal stones Vitamin D deficiency 11/12/2009 Previous Surgical History PAST SURGICAL HISTORY Procedure Laterality Date ABLAT HRT DYSRHYTHM FOCUS 09/2013 [facility] INCL FLUOR GDNCE DX W/CELL WASHG SPX Bronchoscopy COLONOSCOPY FLX DX W/COLLJ SPEC WHEN PFRMD Colonoscopy COLONOSCOPY FLX DX W/COLLJ SPEC WHEN PFRMD 10/18/2005 COLONOSCOPY FLX DX W/COLLJ SPEC WHEN PFRMD 12/28/2010 Colonoscopy EMG 08/21/2014 [facility] ESOPHAGOGASTRODUODENOSCOPY TRANSORAL DIAGNOSTIC EGD HEMORRHOIDECTOMY INT AND XTRNL 2/> COLUMN/NAEEM 12/30/2010 LAPS SURG CHOLECYSTECTOMY W/CHOLANGIOGRAPHY 07/27/2016 LEXISCAN STRESS TEST 02/13/2021 negative MAL LESION TRUNK,ARM,LEG 3.1-4.0 CM 1990 Melanoma MOHS ANY STAGE EA ADD BLOCK 12/2009 Right side face cheek Basal Cell Carcinoma PAST SURGICAL HISTORY OF 2006 Inguinal hernia left side PROSTATE BIOPSY 2020 REMV CATARACT EXTRACAP,INSERT LENS 2020 Family History FAMILY HISTORY Problem Relation Age of Onset Heart Father Hypertension Father Hypertension Mother Hypertension Sister Hypertension Sister other (CROHNS [Other]) Sister Patient Allergies ALLERGIES Allergen Reactions Erythromycin Unknown childhood Iodine Other: See Comments topically had irritation-OK with shellfish Penicillins Unknown childhood Sulfa (Sulfonamide * Unknown childhood Current Medications Current Outpatient Medications on File Prior to Visit Medication Sig acebutolol (SECTRAL) 200 mg capsule Take 1 capsule by mouth every other day. ibuprofen (MOTRIN) 800 mg tablet Take 1 tablet by mouth every 8 hours as needed for pain. Take with food. doxazosin (CARDURA) 2 mg tablet Take 1 tablet by mouth daily at bedtime. Per Dr. Mckinnon finasteride (PROSCAR) 5 mg tablet Take 5 mg by mouth once daily. cyanocobalamin/cobamamide (B12 SUBLINGUAL) Dissolve 500 Units under the tongue. sildenafil (REVATIO) 20 mg tablet Take 1 tablet by mouth as needed. cholecalciferol, vitamin D3, (VITAMIN D3) 4,000 unit cap Take 1 capsule by mouth once daily. (Patient taking differently: Take 5,000 Units by mouth once daily.) calcium polycarbophil (FIBERCON) 625 mg tablet Take 2 tablets by mouth once daily. No current facility-administered medications on file prior to visit. Social History Social History Tobacco Use Smoking status: Never Smokeless tobacco: Never Vaping Use Vaping Use: Never used Substance Use Topics Alcohol use: Yes Alcohol/week: 2.5 standard drinks Types: 1 Glasses of Wine (5oz) per week Comment: wine daily Drug use: No Review of Symptoms REVIEW OF SYSTEMS See hpi EXAM: BP 132/96 Pulse (!) 52 Resp 16 SpO2 96% BP 138/88 Pulse (!) 52 Resp 16 SpO2 96% General Appearance: Well appearing, alert, in no acute distress, well-hydrated, well nourished.. Musculoskeletal: R elbow: +pain to palp of lateral epicondyle. FROM. NVI. +pain with supination and pronation (more content not included)... [facility] 10-20-2022 History of Presen t illness Narrative Chief Complaint Patient presents with: Pain (Elbow Pain): R elbow x 6 weeks; no known injury HPI Frank Monge is a 77 year old male who presents here today for Above Complaints.. Patient states he has been having elbow pain for about 6 weeks. Doesn't recall a specific injury but has been improving and worsening over this time frame. Has used ibuprofen, Ice and rest. Has been using a tennis elbow strap. Pain is not present with rest but if he goes to twist is forearm or try to curl weights, it worsens. Past medical history, appointments, medications, allergies reviewed. Previous Medical History PAST MEDICAL HISTORY Diagnosis Date Benign prostatic hyperplasia with urinary obstruction 07/14/2015 Dr. Mckinnon. bx benign BPH with elevated PSA 07/14/2015 Calculus of gallbladder without cholecystitis without obstruction 07/15/2016 Chronic cough 07/14/2015 Diverticulosis of colon (without mention of hemorrhage) Diverticulosis Esophagitis Hemorrhoids 11/16/2010 Hx of malignant neoplasms of skin: BCC's needing Moh's Surgery x1 stage at upper R mid bridge nose and lower medial cheek beside R nose: 09/24/2013 and 02/20/2010 03/16/2014 Impaired fasting glucose 07/26/2018 Internal hemorrhoids without mention of complication 10/18/05 Liver cyst 07/26/2018 US have been stable Liver lesion 07/15/2016 Malignant melanoma of other specified sites of skin Medicare annual wellness visit, subsequent 07/22/2021 Medicare Part B: Last done: 07/22/2021 Mild intermittent asthma, uncomplicated 01/20/2021 Peripheral polyneuropathy 08/23/2014 PERS HX 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 John yearly for exams SVT (supraventricular tachycardia) (HCC) 12/22/2012. Thoracic aortic aneurysm without rupture (HCC) 01/20/2021 Dr. Shaw Urinary calculus, unspecified Renal stones Vitamin D deficiency 11/12/2009 Previous Surgical History PAST SURGICAL HISTORY Procedure Laterality Date ABLAT HRT DYSRHYTHM FOCUS 09/2013 [facility] INCL FLUOR GDNCE DX W/CELL WASHG SPX Bronchoscopy COLONOSCOPY FLX DX W/COLLJ SPEC WHEN PFRMD Colonoscopy COLONOSCOPY FLX DX W/COLLJ SPEC WHEN PFRMD 10/18/2005 COLONOSCOPY FLX DX W/COLLJ SPEC WHEN PFRMD 12/28/2010 Colonoscopy EMG 08/21/2014 [facility] ESOPHAGOGASTRODUODENOSCOPY TRANSORAL DIAGNOSTIC EGD HEMORRHOIDECTOMY INT & XTRNL 2/ COLUMN/NAEEM 12/30/2010 LAPS SURG CHOLECYSTECTOMY W/CHOLANGIOGRAPHY 07/27/2016 LEXISCAN STRESS TEST 02/13/2021 negative MAL LESION TRUNK,ARM,LEG 3.1-4.0 CM 1990 Melanoma MOHS ANY STAGE EA ADD BLOCK 12/2009 Right side face cheek Basal Cell Carcinoma PAST SURGICAL HISTORY OF 2006 Inguinal hernia left side PROSTATE BIOPSY 2020 REMV CATARACT EXTRACAP,INSERT LENS 2020 Family History FAMILY HISTORY Problem Relation Age of Onset Heart Father Hypertension Father Hypertension Mother Hypertension Sister Hypertension Sister other (CROHNS [Other]) Sister Patient Allergies ALLERGIES Allergen Reactions Erythromycin Unknown childhood Iodine Other: See Comments topically had irritation-OK with shellfish Penicillins Unknown childhood Sulfa (Sulfonamide * Unknown childhood Current Medications Current Outpatient Medications on File Prior to Visit Medication Sig acebutolol (SECTRAL) 200 mg capsule Take 1 capsule by mouth every other day. ibuprofen (MOTRIN) 800 mg tablet Take 1 tablet by mouth every 8 hours as needed for pain. Take with food. doxazosin (CARDURA) 2 mg tablet Take 1 tablet by mouth daily at bedtime. Per Dr. Mckinnon finasteride (PROSCAR) 5 mg tablet Take 5 mg by mouth once daily. cyanocobalamin/cobamamide (B12 SUBLINGUAL) Dissolve 500 Units under the tongue. sildenafil (REVATIO) 20 mg tablet Take 1 tablet by mouth as needed. cholecalciferol, vitamin D3, (VITAMIN D3) 4,000 unit cap Take 1 capsule by mouth once daily. (Patient taking differently: Take 5,000 Units by mouth once daily.) calcium polycarbophil (FIBERCON) 625 mg tablet Take 2 tablets by mouth once daily. No current facility-administered medications on file prior to visit. Social History Social History Tobacco Use Smoking status: Never Smokeless tobacco: Never Vaping Use Vaping Use: Never used Substance Use Topics Alcohol use: Yes Alcohol/week: 2.5 standard drinks Types: 1 Glasses of Wine (5oz) per week Comment: wine daily Drug use: No Review of Symptoms REVIEW OF SYSTEMS See hpi EXAM: BP 132/96 Pulse (!) 52 Resp 16 SpO2 96% BP 138/88 Pulse (!) 52 Resp 16 SpO2 96% General Appearance: Well appearing, alert, in no acute distress, well-hydrated, well nourished.. Musculoskeletal: R elbow: +pain to palp of lateral epicondyle. FROM. NVI. +pain with supination and pronation of forearm against resistance.. Health Maintenance List ANNUAL PCP TEAM CHRONIC DISEASE VISIT due on 08/30/2023 COLORECTAL CANCER SCREENING due on 12/24/2023 DIABETES SCREEN due on 07/05/2025 DTAP,TDAP,TD(4 - Tdap) due on 08/11/2026 LIPID SCREEN due on 07/05/2027 INFLUENZA Completed ADVANCE DIRECTIVE DISCUSSION Completed DEPRESSION ASSESSMENT Completed HEPATITIS C SCREENING Completed SHINGRIX VACCINE Completed COVID-19 VACCINE Completed PNEUMOCOCCAL: 65+ Completed SPIROMETRY Discontinued Data reviewed ASSESSMENT/PLAN: 1. Right lateral epicondylitis - ICD9: 726.32, ICD10: M77.11 Will have patient start Physical Therapy Follow up prn. - CONSULT TO PHYSICAL THERAPY Mekhi Vernon PA-C documented in this encounter [facility] 08-30-2022 Note HNO ID: [id number] Author: Mekhi Vernon PA-C Service: ? Author Type: Physician Air Analysis Technician Type: Progress Notes Filed: 08/30/2022 2:27 PM Note Text: Medicare Yearly Visit Medical B eligibilty date unable to find Date of last exam 07/22/2021 PAST MEDICAL HISTORY Diagnosis Date Benign prostatic hyperplasia with urinary obstruction 07/14/2015 Dr. Mckinnon. bx benign BPH with elevated PSA 07/14/2015 Calculus of gallbladder without cholecystitis without obstruction 07/15/2016 Chronic cough 07/14/2015 Diverticulosis of colon (without mention of hemorrhage) Diverticulosis Esophagitis Hemorrhoids 11/16/2010 Hx of malignant neoplasms of skin: BCC's needing Moh's Surgery x1 stage at upper R mid bridge nose and lower medial cheek beside R nose: 09/24/2013 and 02/20/2010 03/16/2014 Impaired fasting glucose 07/26/2018 Internal hemorrhoids without mention of complication 10/18/05 Liver cyst 07/26/2018 US have been stable Liver lesion 07/15/2016 Malignant melanoma of other specified sites of skin Medicare annual wellness visit, subsequent 07/22/2021 Medicare Part B: Last done: 07/22/2021 Mild intermittent asthma, uncomplicated 01/20/2021 Peripheral polyneuropathy 08/23/2014 PERS HX 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 John yearly for exams SVT (supraventricular tachycardia) (HCC) 12/22/2012. Thoracic aortic aneurysm without rupture 01/20/2021 Dr. Shaw Urinary calculus, unspecified Renal stones Vitamin D deficiency 11/12/2009 PAST SURGICAL HISTORY Procedure Laterality Date ABLAT HRT DYSRHYTHM FOCUS 09/2013 [facility] IN[facility] FLUOR GDNCE DX W/CELL WASHG SPX Bronchoscopy COLONOSCOPY FLX DX W/COLLJ SPEC WHEN PFRMD Colonoscopy COLONOSCOPY FLX DX W/COLLJ SPEC WHEN PFRMD 10/18/2005 COLONOSCOPY FLX DX W/COLLJ SPEC WHEN PFRMD 12/28/2010 Colonoscopy EMG 08/21/2014 [facility] ESOPHAGOGASTRODUODENOSCOPY TRANSORAL DIAGNOSTIC EGD HEMORRHOIDECTOMY INT AND XTRNL 2/> COLUMN/NAEEM 12/30/2010 LAPS SURG CHOLECYSTECTOMY W/CHOLANGIOGRAPHY 07/27/2016 LEXISCAN STRESS TEST 02/13/2021 negative MAL LESION TRUNK,ARM,LEG 3.1-4.0 CM 1990 Melanoma MOHS ANY STAGE EA ADD BLOCK 12/2009 Right side face cheek Basal Cell Carcinoma PAST SURGICAL HISTORY OF 2006 Inguinal hernia left side PROSTATE BIOPSY 2020 REMV CATARACT EXTRACAP,INSERT LENS 2020 ALLERGIES: Erythromycin, Iodine, Penicillins, and Sulfa (Sulfonamide Antibiotics) Medications reviewed: Yes FAMILY HISTORY Problem Relation Age of Onset Heart Father Hypertension Father Hypertension Mother Hypertension Sister Hypertension Sister other (CROHNS [Other]) Sister SOCIAL HISTORY: Social History Tobacco Use Smoking status: Never Smokeless tobacco: Never Substance Use Topics Alcohol use: Yes Alcohol/week: 2.5 standard drinks Types: 1 Glasses of Wine (5oz) per week Comment: wine daily Drug use: No Frank works out regularly 7 times per week with walking, light weights, and core exercises. He watches his diet for sodium, low fat and low cholesterol all of the time. List of current specialists seen: Derm- Dr. John Cardio Uro- Dr. Mckinnon Ophth Dentist End of Live Planning discussed including patients advanced directive wishes: Yes I am willing to follow Frank's advanced directives. Depression Screening 08/03/2017 08/26/2020 08/30/2022 08/30/2022 PHQ-2 Score 0 0 0 0 Depression screening tool completed and reviewed. Based on score and interview, patient is not at risk for depression. Screening tool discussed with patient, and I recommended no further intervention at this time. Functional Ability/Safety Screen 1. Was the patient's timed Up and Go test unsteady or longer than 30 seconds? No 2. Does the patient need help with the phone, transportation, shopping,preparing meals, housework, laundry, medications or managing money? No 3. Does your home have rugs in the hallway (Y), lack of grab bars in the bathroom, lack of handrails on the stairs or have poor lighting? No Hearing Evaluation: hard of hearing and wears hearing aids PHYSICAL EXAM BP 128/82 Pulse (!) 59 Resp 18 Ht 182.6 cm (5' 11.89 ) Wt 87.7 kg (193 lb 6.4 oz) SpO2 95% BMI 26.31 kg/m? Alert and oriented X 3: YES Body mass index is 26.31 kg/m?. Visual acuity: sees ophth ASSESSMENT/PLAN: 77 year old male The following prevention plan was discussed during the office visit and provided to the patient: See below Mekhi Vernon PA-C Chief Complaint Patient presents with: Medicare Wellness Exam HPI Frank Monge is a 77 year old male who presents here today for extensive exam. Patient with hx of SVT, impaired fasting BS, Thoracic aneurysm seeing cardio, mild asthma seeing pulm, Vit D def, peripheral neuropathy, BPH as well as those reviewed and addressed below and in ROS. Patient has neuropathy in his feet. Past medical history, appointments, medicatio (more content not included)... [facility] 08-30-2022 History of Presen t illness Narrative Medicare Yearly Visit Medical B eligibilty date unable to find Date of last exam 07/22/2021 PAST MEDICAL HISTORY Diagnosis Date Benign prostatic hyperplasia with urinary obstruction 07/14/2015 Dr. Mckinnon. bx benign BPH with elevated PSA 07/14/2015 Calculus of gallbladder without cholecystitis without obstruction 07/15/2016 Chronic cough 07/14/2015 Diverticulosis of colon (without mention of hemorrhage) Diverticulosis Esophagitis Hemorrhoids 11/16/2010 Hx of malignant neoplasms of skin: BCC's needing Moh's Surgery x1 stage at upper R mid bridge nose and lower medial cheek beside R nose: 09/24/2013 and 02/20/2010 03/16/2014 Impaired fasting glucose 07/26/2018 Internal hemorrhoids without mention of complication 10/18/05 Liver cyst 07/26/2018 US have been stable Liver lesion 07/15/2016 Malignant melanoma of other specified sites of skin Medicare annual wellness visit, subsequent 07/22/2021 Medicare Part B: Last done: 07/22/2021 Mild intermittent asthma, uncomplicated 01/20/2021 Peripheral polyneuropathy 08/23/2014 PERS HX 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 John yearly for exams SVT (supraventricular tachycardia) (HCC) 12/22/2012. Thoracic aortic aneurysm without rupture 01/20/2021 Dr. Shaw Urinary calculus, unspecified Renal stones Vitamin D deficiency 11/12/2009 PAST SURGICAL HISTORY Procedure Laterality Date ABLAT HRT DYSRHYTHM FOCUS 09/2013 [facility] INCL FLUOR GDNCE DX W/CELL WASHG SPX Bronchoscopy COLONOSCOPY FLX DX W/COLLJ SPEC WHEN PFRMD Colonoscopy COLONOSCOPY FLX DX W/COLLJ SPEC WHEN PFRMD 10/18/2005 COLONOSCOPY FLX DX W/COLLJ SPEC WHEN PFRMD 12/28/2010 Colonoscopy EMG 08/21/2014 [facility] ESOPHAGOGASTRODUODENOSCOPY TRANSORAL DIAGNOSTIC EGD HEMORRHOIDECTOMY INT & XTRNL 2/> COLUMN/NAEEM 12/30/2010 LAPS SURG CHOLECYSTECTOMY W/CHOLANGIOGRAPHY 07/27/2016 LEXISCAN STRESS TEST 02/13/2021 negative MAL LESION TRUNK,ARM,LEG 3.1-4.0 CM 1990 Melanoma MOHS ANY STAGE EA ADD BLOCK 12/2009 Right side face cheek Basal Cell Carcinoma PAST SURGICAL HISTORY OF 2006 Inguinal hernia left side PROSTATE BIOPSY 2020 REMV CATARACT EXTRACAP,INSERT LENS 2020 ALLERGIES: Erythromycin, Iodine, Penicillins, and Sulfa (Sulfonamide Antibiotics) Medications reviewed: Yes FAMILY HISTORY Problem Relation Age of Onset Heart Father Hypertension Father Hypertension Mother Hypertension Sister Hypertension Sister other (CROHNS [Other]) Sister SOCIAL HISTORY: Social History Tobacco Use Smoking status: Never Smokeless tobacco: Never Substance Use Topics Alcohol use: Yes Alcohol/week: 2.5 standard drinks Types: 1 Glasses of Wine (5oz) per week Comment: wine daily Drug use: No Frank works out regularly 7 times per week with walking, light weights, and core exercises. He watches his diet for sodium, low fat and low cholesterol all of the time. List of current specialists seen: Derm- Dr. John Cardio Uro- Dr. Mckinnon Ophth Dentist End of Live Planning discussed including patients advanced directive wishes: Yes I am willing to follow Frank's advanced directives. Depression Screening 08/03/2017 08/26/2020 08/30/2022 08/30/2022 PHQ-2 Score 0 0 0 0 Depression screening tool completed and reviewed. Based on score and interview, patient is not at risk for depression. Screening tool discussed with patient, and I recommended no further intervention at this time. Functional Ability/Safety Screen 1. Was the patient's timed Up and Go test unsteady or longer than 30 seconds? No 2. Does the patient need help with the phone, transportation, shopping,preparing meals, housework, laundry, medications or managing money? No 3. Does your home have rugs in the hallway (Y), lack of grab bars in the bathroom, lack of handrails on the stairs or have poor lighting? No Hearing Evaluation: hard of hearing and wears hearing aids PHYSICAL EXAM BP 128/82 Pulse (!) 59 Resp 18 Ht 182.6 cm (5' 11.89 ) Wt 87.7 kg (193 lb 6.4 oz) SpO2 95% BMI 26.31 kg/m Alert and oriented X 3: YES Body mass index is 26.31 kg/m . Visual acuity: sees ophth ASSESSMENT/PLAN: 77 year old male The following prevention plan was discussed during the office visit and provided to the patient: See below Mekhi Vernon PA-C Chief Complaint Patient presents with: Medicare Wellness Exam HPI Frank Monge is a 77 year old male who presents here today for extensive exam. Patient with hx of SVT, impaired fasting BS, Thoracic aneurysm seeing cardio, mild asthma seeing pulm, Vit D def, peripheral neuropathy, BPH as well as those reviewed and addressed below and in ROS. Patient has neuropathy in his feet. Past medical history, appointments, medications, allergies reviewed. Previous Medical History PAST MEDICAL HISTORY Diagnosis Date Benign prostatic hyperplasia with urinary obstruction 07/14/2015 Dr. Mckinnon. bx benign BPH with elevated PSA 07/14/2015 Calculus of gallbladder without cholecystitis without obstruction 07/15/2016 Chronic cough 07/14/2015 Diverticulosis of colon (without mention of hemorrhage) Diverticulosis Esophagitis Hemorrhoids 11/16/2010 Hx of malignant neoplasms of skin: BCC's needing Moh's Surgery x1 stage at upper R mid bridge nose and lower medial cheek beside R nose: 09/24/2013 and 02/20/2010 03/16/2014 Impaired fasting glucose 07/26/2018 Internal hemorrhoids without mention of complication 10/18/05 Liver cyst 07/26/2018 US have been stable Liver lesion 07/15/2016 Malignant melanoma of other specified sites of skin Medicare annual wellness visit, subsequent 07/22/2021 Medicare Part B: Last done: 07/22/2021 Mild intermittent asthma, uncomplicated 01/20/2021 Peripheral polyneuropathy 08/23/2014 PERS HX 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 John yearly for exams SVT (supraventricular tachycardia) (HCC) 12/22/2012. Thoracic aortic aneurysm without rupture 01/20/2021 Dr. Shaw Urinary calculus, unspecified Renal stones Vitamin D deficiency 11/12/2009 Previous Surgical History PAST SURGICAL HISTORY Procedure Laterality Date ABLAT HRT DYSRHYTHM FOCUS 09/2013 [facility] INCL FLUOR GDNCE DX W/CELL WASHG SPX Bronchoscopy COLONOSCOPY FLX DX W/COLLJ SPEC WHEN PFRMD Colonoscopy COLONOSCOPY FLX DX W/COLLJ SPEC WHEN PFRMD 10/18/2005 COLONOSCOPY FLX DX W/COLLJ SPEC WHEN PFRMD 12/28/2010 Colonoscopy EMG 08/21/2014 [facility] ESOPHAGOGASTRODUODENOSCOPY TRANSORAL DIAGNOSTIC EGD HEMORRHOIDECTOMY INT & XTRNL 2/> COLUMN/NAEEM 12/30/2010 LAPS SURG CHOLECYSTECTOMY W/CHOLANGIOGRAPHY 07/27/2016 LEXISCAN STRESS TEST 02/13/2021 negative MAL LESION TRUNK,ARM,LEG 3.1-4.0 CM 1990 Melanoma MOHS ANY STAGE EA ADD BLOCK 12/2009 Right side face cheek Basal Cell Carcinoma PAST SURGICAL HISTORY OF 2006 Inguinal hernia left side PROSTATE BIOPSY 2020 REMV CATARACT EXTRACAP,INSERT LENS 2020 Family History FAMILY HISTORY Problem Relation Age of Onset Heart Father Hypertension Father Hypertension Mother Hypertension Sister Hypertension Sister other (CROHNS [Other]) Sister Patient Allergies ALLERGIES Allergen Reactions Erythromycin Unknown childhood Iodine Other: See Comments topically had irritation-OK with shellfish Penicillins Unknown childhood Sulfa (Sulfonamide * Unknown childhood Current Medications Current Outpatient Medications on File Prior to Visit Medication Sig acebutolol (SECTRAL) 200 mg capsule Take 1 capsule by mouth every other day. ibuprofen (MOTRIN) 800 mg tablet Take 1 tablet by mouth every 8 hours as needed for pain. Take with food. doxazosin (CARDURA) 2 mg tablet Take 1 tablet by mouth daily at bedtime. Per Dr. Mckinnon finasteride (PROSCAR) 5 mg tablet Take 5 mg by mouth once daily. cyanocobalamin/cobamamide (B12 SUBLINGUAL) Dissolve 500 Units under the tongue. sildenafil (REVATIO) 20 mg tablet Take 1 tablet by mouth as needed. cholecalciferol, vitamin D3, (VITAMIN D3) 4,000 unit cap Take 1 capsule by mouth once daily. (Patient taking differently: Take 5,000 Units by mouth once daily.) calcium polycarbophil (FIBERCON) 625 mg tablet Take 2 tablets by mouth once daily. atovaquone-proguanil (MALARONE) 250-100 mg per tablet Take one tab daily starting 2 days before trip, during trip and for 7 days after trip. cefADROxil (DURICEF) 500 mg capsule Take 1 capsule by mouth twice daily. (Patient not taking: Reported on 08/30/2022) budesonide-formoterol (SYMBICORT) 160-4.5 mcg/actuation inhaler Inhale 2 Puffs as instructed twice daily. No current facility-administered medications on file prior to visit. Social History Social History Tobacco Use Smoking status: Never Smokeless tobacco: Never Substance Use Topics Alcohol use: Yes Alcohol/week: 2.5 standard drinks Types: 1 Glasses of Wine (5oz) per week Comment: wine daily Drug use: No Review of Symptoms REVIEW OF SYSTEMS GENERAL: No weight loss, malaise or fevers HEENT: No changes in hearing or vision, no nose bleeds or other nasal problems NECK: Negative for lumps, goiter, pain and significant neck swelling RESPIRATORY: Negative for cough, hemoptysis, wheezing, COPD, dyspnea or shortness of breath CARDIOVASCULAR: Negative for chest pain, leg swelling, hypertension, CHF. GI: Negative for abdominal discomfort, blood in stools or black stools, change in bowel habit, heart burn, nausea, vomiting : sees urology for chronic issues. MUSCULOSKELETAL: Negative for joint pain or swelling, back pain or muscle pain SKIN: Negative for lesions, rash, and itching PSYCH: Negative for sleep disturbance, mood disorder and recent psychosocial stressors HEMATOLOGY/LYMPHOLOGY: Negative for prolonged bleeding, bruising easily or swollen nodes ENDOCRINE: Negative for cold or heat intolerance, polyuria, polydipsia and goiter NEURO: No history of headaches, syncope, paralysis, seizures or tremors EXAM: BP 128/82 Pulse (!) 59 Resp 18 Ht 182.6 cm (5' 11.89 ) Wt 87.7 kg (193 lb 6.4 oz) SpO2 95% BMI 26.31 kg/m General Appearance: Well appearing, alert, in no acute distress, well-hydrated, well nourished.. Skin: Skin color, texture, turgor normal, no suspicious rashes or lesions on exposed skin. Head: Normocephalic, no masses, lesions, tenderness or abnormalities. Eyes: Anicteric sclera. Pupils are equally round and reactive to light. Extraocular movements are intact. . Ears: External ears normal, canals clear, TMs pearly manley.. Oropharynx: Lips, mucosa, and tongue normal, teeth and gums normal, oropharynx normal. Neck: Supple, no adenopathy; thyroid symmetric, normal size, no bruits. Lungs: Lungs clear to auscultation. No wheezing, rhonchi, rales.. Heart: RRR without murmur, gallop, or rubs. No ectopy. Abdomen: Normal abdominal exam, Abdomen soft, non-tender. Bowel sounds normal. No masses, organomegaly. Extremities: No deformities, edema, skin discoloration, clubbing or cyanosis. Good capillary refill. . Peripheral Pulses: Normal. Neurologic: Gait normal. Reflexes normal and symmetric. Sensation grossly intact.. Health Maintenance List ANNUAL PCP TEAM CHRONIC DISEASE VISIT due on 07/22/2022 ADVANCE DIRECTIVE DISCUSSION Never done DEPRESSION ASSESSMENT Never done COLORECTAL CANCER SCREENING due on 12/24/2023 DIABETES SCREEN due on 07/05/2025 DTAP,TDAP,TD(4 - Tdap) due on 08/11/2026 LIPID SCREEN due on 07/05/2027 INFLUENZA Completed HEPATITIS C SCREENING Completed SHINGRIX VACCINE Completed COVID-19 VACCINE Completed PNEUMOCOCCAL: 65+ Completed SPIROMETRY Discontinued Data reviewed Component Latest Ref Rng & Units 07/05/2022 WBC 3.70 - 11.00 k/uL 5.03 RBC 4.20 - 6.00 m/uL 4.73 Hemoglobin 13.0 - 17.0 g/dL 15.2 Hematocrit 39.0 - 51.0 % 44.5 MCV 80.0 - 100.0 fL 94.1 MCH 26.0 - 34.0 pg 32.1 MCHC 30.5 - 36.0 g/dL 34.2 RDW-CV 11.5 - 15.0 % 11.8 Platelet Count 150 - 400 k/uL 151 MPV 9.0 - 12.7 fL 11.6 Neut% % 52.3 Abs Neut (ANC) 1.45 - 7.50 k/uL 2.63 Lymph% % 33.0 Abs Lymph 1.00 - 4.00 k/uL 1.66 Cotton% % 9.3 Abs Cotton <0.87 k/uL 0.47 Eosin% % 3.8 Abs Eosin <0.46 k/uL 0.19 Baso% % 1.2 Abs Baso <0.11 k/uL 0.06 Immature Gran % % 0.4 IMMATURE GRANS (ABS) <0.10 k/uL <0.03 NRBC /100 WBC 0.0 Absolute nRBC <0.01 k/uL <0.01 DTYPE Auto Protein, Total 6.3 - 8.0 g/dL 6.2 (L) Albumin 3.9 - 4.9 g/dL 4.0 Calcium 8.5 - 10.2 mg/dL 8.8 Bilirubin, Total 0.2 - 1.3 mg/dL 0.9 Alkaline Phosphatase 38 - 113 U/L 81 AST 14 - 40 U/L 16 ALT 10 - 54 U/L 12 Glucose 74 - 99 mg/dL 108 (H) BUN 9 - 24 mg/dL 16 Creatinine 0.73 - 1.22 mg/dL 0.98 Sodium 136 - 144 mmol/L 140 Potassium 3.7 - 5.1 mmol/L 4.5 Chloride 97 - 105 mmol/L 105 CO2 22 - 30 mmol/L 27 Anion Gap 9 - 18 mmol/L 8 (L) eGFR >=60 mL/min/1.73m 80 Total Cholesterol, Nonfasting <200 mg/dL 151 Triglycerides, Nonfasting <150 mg/dL 52 HDL Cholesterol, Nonfasting >39 mg/dL 63 LDL Cholesterol, Nonfasting <100 mg/dL 78 Non HDL Cholesterol, Nonfasting <130 mg/dL 88 VLDL Cholesterol, Nonfasting <30 mg/dL 10 Total Chol/HDL Ratio, Nonfasting <5.10 mg/dL 2.40 LDL/HDL Ratio, Nonfasting <2.54 mg/dL 1.24 Hemoglobin A1C 4.3 - 5.6 % 5.1 Estimated Average Glucose mg/dL 100 PSA Screening <2.60 ng/mL 2.81 (H) Vitamin D 25 Hydroxy 31.0 - 80.0 ng/mL 62.2 ASSESSMENT/PLAN: 1. Medicare annual wellness visit, subsequent - ICD9: V70.0, ICD10: Z00.00 (primary diagnosis) - Counseled on healthy diet and regular exercise - Follow up for annual exam in one year 2. BPH with elevated PSA - ICD9: 600.00, 790.93, ICD10: N40.0, R97.20 Cont with uro 3. Impaired fasting glucose - ICD9: 790.21, ICD10: R73.01 Stable labs 4. Benign prostatic hyperplasia with urinary obstruction - ICD9: 600.01, 599.69, ICD10: N40.1, N13.8 Cont with uro 5. SVT (supraventricular tachycardia) (HCC) - ICD9: 427.89, ICD10: I47.1 Cont with cardio 6. Thoracic aortic aneurysm without rupture, unspecified part - ICD9: 441.2, ICD10: I71.20 Cont with cardio 7. Idiopathic peripheral neuropathy - ICD9: 356.9, ICD10: G60.9 Discussed options. Patient wishes to continue to monitor 8. Mild intermittent asthma, uncomplicated - ICD9: 493.90, ICD10: J45.20 stable - Avoidance of triggers recommended Mekhi Vernon PA-C documented in this encounter [facility] 02-03-2022 Miscellaneous Notes The following approved medication requests have been transmitted electronically. Signed Prescriptions Disp Refills acebutolol (SECTRAL) 200 mg capsule 45 capsule 1 Sig: Take 1 capsule by mouth every other day. IAN: No Sherry Novak MD documented in this encounter [facility] 01-12-2022 Miscellaneous Notes The following approved medication requests have been transmitted electronically. Signed Prescriptions Disp Refills atovaquone-proguanil (MALARONE) 250-100 mg per tablet 33 tablet 0 Sig: Take one tab daily starting 2 days before trip, during trip and for 7 days after trip. Sherry Novak MD See [facility]- JUAN 07/22/21. Please advise. Claudio Lee LPN documented in this encounter [facility] 11-23-2021 Miscellaneous Notes Copy made for pt records. [facility] at [facility] for pick up and delivery driver. Pt notified. Maribel Neil Ma Forms completed. Pleas have copy scanned into chart. Type of form: Traveling document Form received via walk in When form is completed, CALL PATIENT TO COME IN AND QUARTER TRIMMER Form has been forwarded to Physician Desk: Dr. Kishore Cabrera Ma documented in this encounter [facility] documented as of this encounter (statuses as of 11/23/2021) [facility] History of Past illness Narrative* Problem Noted Date Resolved Date Shoulder impingement syndrome, right 08/03/2017 07/26/2018 Chronic cholecystitis with calculus 08/06/2016 07/26/2018 Calculus of gallbladder with out cholecystitis without obstruction 07/15/2016 01/20/2021 Surgical Scars 03/16/2014 08/23/2014 Skin tag 03/16/2014 08/23/2014 Melanocytic Nevi of trunk: c hest, back, and abdomen areas: mostly Intradermal types 03/16/2014 07/26/2018 Melanocytic Nevi of upper extremity 03/16/2014 07/26/2018 BCC (basal cell carcinoma), face: R mid upper br idge nose 06/01/2013 03/16/2014 Postinflammatory skin changes 06/01/2013 Telangiectasia 12/31/2012 08/23/2014 Comedo 12/31/2012 08/23/2014 Other specified disease of sebaceous glands 12/1308/23/2014 Morillo angioma 04/01/2012 08/23/2014 Dermatofibroma of right thigh 04/01/2012 Melanocytic nevi of face 03/03/2012 015 Melanocytic Nevus of upper extremity or shoulder 03/03/2012 03/16/2014 Solar Lentigines 03/03/2012 08/23/2014 Actinic skin damage 03/03/2012 08/23/2014 Neoplasm of Uncertain Behavior(NUB) of skin 10/201003/16/2014 Personal history of other ma lignant neoplasm of skin: BCC needing Moh's Surgery x1 stage 02/20/2010 05/17/2011 03/16/2014 Rectal bleeding 11/27/2010 08/23/2014 Melanocytic Nevus of legs 08/13/20102017 Open wound(s) (multiple) of unspecified site(s), without mention of complication 01/23/2010 03/03/2012 Melanocytic nevus of face 07/29/20092017 Melanocytic nevus of neck 07/29/20092017 Melanocytic nevus of trunk 07/16/200907/26 Other acne 01/08/2009 03/03/2012 NEVUS///BENIGN ARAVIND SKIN LEG 03/23/200702/13 SOLAR LENTIGINES///DYSCHROMIA OTHER 03/23/2007 03/03/2012 ACTINIC KERATOSIS (Premalignant AK) 03/08/2007 07/26/2018 Benign neoplasm of skin of trunk, except scrotum 03/08/2007 03/03/2012 FACE////BENIGN ARAVIND SKIN FACE NEC 03/08/2007 03/03/2012 NEVI///BENIGN ARAVIND SCALP/SKIN NECK 03/08/2007 03/03/2012 NEVI///BENIGN ARAVIND SKIN ARM 03/08/200703/03 SURGICAL SCAR & FIBROSIS OF SKIN 03/08/2007 03/16/2014 ACTINIC DAMAGE//CHR SOLAR SKIN DAMAGE NOS 200603/03/2012 Seborrheic Keratoses 03/08/2007 08/23/2014 MORILLO ANGIOMA 03/08/2007 03/16/2014 Inguinal hernia without ment ion of obstruction or gangrene, unilateral or unspecified, (not specified as recurrent) 12/27/2006 08/23/2014 Malignant melanoma of other specified sites of s kin 03/03/2012 Esophagitis 07/26/2018 Urinary calculus, unspecified Overview: Renal stones documented as of this encounter (statuses as of 01/12/2022) [facility] History of Past illness Narrative* Problem Noted Date Resolved Date Shoulder impingement syndrome, right 08/03/2017 07/26/2018 Chronic cholecystitis with calculus 08/06/2016 07/26/2018 Calculus of gallbladder with out cholecystitis without obstruction 07/15/2016 01/20/2021 Surgical Scars 03/16/2014 08/23/2014 Skin tag 03/16/2014 08/23/2014 Melanocytic Nevi of trunk: c hest, back, and abdomen areas: mostly Intradermal types 03/16/2014 07/26/2018 Melanocytic Nevi of upper extremity 03/16/2014 07/26/2018 BCC (basal cell carcinoma), face: R mid upper br idge nose 06/01/2013 03/16/2014 Postinflammatory skin changes 06/01/2013 Telangiectasia 12/31/2012 08/23/2014 Comedo 12/31/2012 08/23/2014 Other specified disease of sebaceous glands 12/1308/23/2014 Morillo angioma 04/01/2012 08/23/2014 Dermatofibroma of right thigh 04/01/2012 Melanocytic nevi of face 03/03/2012 015 Melanocytic Nevus of upper extremity or shoulder 03/03/2012 03/16/2014 Solar Lentigines 03/03/2012 08/23/2014 Actinic skin damage 03/03/2012 08/23/2014 Neoplasm of Uncertain Behavior(NUB) of skin 10/201003/16/2014 Personal history of other ma lignant neoplasm of skin: BCC needing Moh's Surgery x1 stage 02/20/2010 05/17/2011 03/16/2014 Rectal bleeding 11/27/2010 08/23/2014 Melanocytic Nevus of legs 08/13/20102017 Open wound(s) (multiple) of unspecified site(s), without mention of complication 01/23/2010 03/03/2012 Melanocytic nevus of face 07/29/20092017 Melanocytic nevus of neck 07/29/20092017 Melanocytic nevus of trunk 07/16/200907/26 Other acne 01/08/2009 03/03/2012 NEVUS///BENIGN ARAVIND SKIN LEG 03/23/200702/13 SOLAR LENTIGINES///DYSCHROMIA OTHER 03/23/2007 03/03/2012 ACTINIC KERATOSIS (Premalignant AK) 03/08/2007 07/26/2018 Benign neoplasm of skin of trunk, except scrotum 03/08/2007 03/03/2012 FACE////BENIGN ARAVIND SKIN FACE NEC 03/08/2007 03/03/2012 NEVI///BENIGN ARAVIND SCALP/SKIN NECK 03/08/2007 03/03/2012 NEVI///BENIGN ARAVIND SKIN ARM 03/08/200703/03 SURGICAL SCAR & FIBROSIS OF SKIN 03/08/2007 03/16/2014 ACTINIC DAMAGE//CHR SOLAR SKIN DAMAGE NOS 200603/03/2012 Seborrheic Keratoses 03/08/2007 08/23/2014 MORILLO ANGIOMA 03/08/2007 03/16/2014 Inguinal hernia without ment ion of obstruction or gangrene, unilateral or unspecified, (not specified as recurrent) 12/27/2006 08/23/2014 Malignant melanoma of other specified sites of s kin 03/03/2012 Esophagitis 07/26/2018 Urinary calculus, unspecified Overview: Renal stones documented as of this encounter (statuses as of 02/03/2022) [facility] History of Past illness Narrative* Problem Noted Date Resolved Date Shoulder impingement syndrome, right 08/03/2017 07/26/2018 Chronic cholecystitis with calculus 08/06/2016 07/26/2018 Calculus of gallbladder with out cholecystitis without obstruction 07/15/2016 01/20/2021 Surgical Scars 03/16/2014 08/23/2014 Skin tag 03/16/2014 08/23/2014 Melanocytic Nevi of trunk: c hest, back, and abdomen areas: mostly Intradermal types 03/16/2014 07/26/2018 Melanocytic Nevi of upper extremity 03/16/2014 07/26/2018 BCC (basal cell carcinoma), face: R mid upper br idge nose 06/01/2013 03/16/2014 Postinflammatory skin changes 06/01/2013 Telangiectasia 12/31/2012 08/23/2014 Comedo 12/31/2012 08/23/2014 Other specified disease of sebaceous glands 12/1308/23/2014 Morillo angioma 04/01/2012 08/23/2014 Dermatofibroma of right thigh 04/01/2012 Melanocytic nevi of face 03/03/2012 015 Melanocytic Nevus of upper extremity or shoulder 03/03/2012 03/16/2014 Solar Lentigines 03/03/2012 08/23/2014 Actinic skin damage 03/03/2012 08/23/2014 Neoplasm of Uncertain Behavior(NUB) of skin 10/201003/16/2014 Personal history of other ma lignant neoplasm of skin: BCC needing Moh's Surgery x1 stage 02/20/2010 05/17/2011 03/16/2014 Rectal bleeding 11/27/2010 08/23/2014 Melanocytic Nevus of legs 08/13/20102017 Open wound(s) (multiple) of unspecified site(s), without mention of complication 01/23/2010 03/03/2012 Melanocytic nevus of face 07/29/20092017 Melanocytic nevus of neck 07/29/20092017 Melanocytic nevus of trunk 07/16/200907/26 Other acne 01/08/2009 03/03/2012 NEVUS///BENIGN ARAVIND SKIN LEG 03/23/200702/13 SOLAR LENTIGINES///DYSCHROMIA OTHER 03/23/2007 03/03/2012 ACTINIC KERATOSIS (Premalignant AK) 03/08/2007 07/26/2018 Benign neoplasm of skin of trunk, except scrotum 03/08/2007 03/03/2012 FACE////BENIGN ARAVIND SKIN FACE NEC 03/08/2007 03/03/2012 NEVI///BENIGN ARAVIND SCALP/SKIN NECK 03/08/2007 03/03/2012 NEVI///BENIGN ARAVIND SKIN ARM 03/08/200703/03 SURGICAL SCAR & FIBROSIS OF SKIN 03/08/2007 03/16/2014 ACTINIC DAMAGE//CHR SOLAR SKIN DAMAGE NOS 200603/03/2012 Seborrheic Keratoses 03/08/2007 08/23/2014 MORILLO ANGIOMA 03/08/2007 03/16/2014 Inguinal hernia without ment ion of obstruction or gangrene, unilateral or unspecified, (not specified as recurrent) 12/27/2006 08/23/2014 Malignant melanoma of other specified sites of s kin 03/03/2012 Esophagitis 07/26/2018 Urinary calculus, unspecified Overview: Renal stones documented as of this encounter (statuses as of 06/23/2022) [facility] History of Past illness Narrative* Problem Noted Date Resolved Date Shoulder impingement syndrome, right 08/03/2017 07/26/2018 Chronic cholecystitis with calculus 08/06/2016 07/26/2018 Calculus of gallbladder with out cholecystitis without obstruction 07/15/2016 01/20/2021 Surgical Scars 03/16/2014 08/23/2014 Skin tag 03/16/2014 08/23/2014 Melanocytic Nevi of trunk: c hest, back, and abdomen areas: mostly Intradermal types 03/16/2014 07/26/2018 Melanocytic Nevi of upper extremity 03/16/2014 07/26/2018 BCC (basal cell carcinoma), face: R mid upper br idge nose 06/01/2013 03/16/2014 Postinflammatory skin changes 06/01/2013 Telangiectasia 12/31/2012 08/23/2014 [place] 12/31/2012 08/23/2014 Other specified disease of sebaceous glands 12/1308/23/2014 Morillo angioma 04/01/2012 08/23/2014 Dermatofibroma of right thigh 04/01/2012 Melanocytic nevi of face 03/03/2012 015 Melanocytic Nevus of upper extremity or shoulder 03/03/2012 03/16/2014 Solar Lentigines 03/03/2012 08/23/2014 Actinic skin damage 03/03/2012 08/23/2014 Neoplasm of Uncertain Behavior(NUB) of skin 10/201003/16/2014 Personal history of other ma lignant neoplasm of skin: BCC needing Moh's Surgery x1 stage 02/20/2010 05/17/2011 03/16/2014 Rectal bleeding 11/27/2010 08/23/2014 Melanocytic Nevus of legs 08/13/20102017 Open wound(s) (multiple) of unspecified site(s), without mention of complication 01/23/2010 03/03/2012 Melanocytic nevus of face 07/29/20092017 Melanocytic nevus of neck 07/29/20092017 Melanocytic nevus of trunk 07/16/200907/26 Other acne 01/08/2009 03/03/2012 NEVUS///BENIGN ARAVIND SKIN LEG 03/23/200702/13 SOLAR LENTIGINES///DYSCHROMIA OTHER 03/23/2007 03/03/2012 ACTINIC KERATOSIS (Premalignant AK) 03/08/2007 07/26/2018 Benign neoplasm of skin of trunk, except scrotum 03/08/2007 03/03/2012 FACE////BENIGN ARAVIND SKIN FACE NEC 03/08/2007 03/03/2012 NEVI///BENIGN ARAVIND SCALP/SKIN NECK 03/08/2007 03/03/2012 NEVI///BENIGN ARAVIND SKIN ARM 03/08/200703/03 SURGICAL SCAR & FIBROSIS OF SKIN 03/08/2007 03/16/2014 ACTINIC DAMAGE//CHR SOLAR SKIN DAMAGE NOS 200603/03/2012 Seborrheic Keratoses 03/08/2007 08/23/2014 M[place]O ANGIOMA 03/08/2007 03/16/2014 Inguinal hernia without ment ion of obstruction or gangrene, unilateral or unspecified, (not specified as recurrent) 12/27/2006 08/23/2014 Malignant melanoma of other specified sites of s kin 03/03/2012 Esophagitis 07/26/2018 Urinary calculus, unspecified Overview: Renal stones documented as of this encounter (statuses as of 08/30/2022) [facility] History of Past illness Narrative* Problem Noted Date Resolved Date Shoulder impingement syndrome, right 08/03/2017 07/26/2018 Chronic cholecystitis with calculus 08/06/2016 07/26/2018 Calculus of gallbladder with out cholecystitis without obstruction 07/15/2016 01/20/2021 Surgical Scars 03/16/2014 08/23/2014 Skin tag 03/16/2014 08/23/2014 Melanocytic Nevi of trunk: c hest, back, and abdomen areas: mostly Intradermal types 03/16/2014 07/26/2018 Melanocytic Nevi of upper extremity 03/16/2014 07/26/2018 BCC (basal cell carcinoma), face: R mid upper br idge nose 06/01/2013 03/16/2014 Postinflammatory skin changes 06/01/2013 Telangiectasia 12/31/2012 08/23/2014 [place] 12/31/2012 08/23/2014 Other specified disease of sebaceous glands 12/1308/23/2014 Morillo angioma 04/01/2012 08/23/2014 Dermatofibroma of right thigh 04/01/2012 Melanocytic nevi of face 03/03/2012 015 Melanocytic Nevus of upper extremity or shoulder 03/03/2012 03/16/2014 Solar Lentigines 03/03/2012 08/23/2014 Actinic skin damage 03/03/2012 08/23/2014 Neoplasm of Uncertain Behavior(NUB) of skin 10/201003/16/2014 Personal history of other ma lignant neoplasm of skin: BCC needing Moh's Surgery x1 stage 02/20/2010 05/17/2011 03/16/2014 Rectal bleeding 11/27/2010 08/23/2014 Melanocytic Nevus of legs 08/13/20102017 Open wound(s) (multiple) of unspecified site(s), without mention of complication 01/23/2010 03/03/2012 Melanocytic nevus of face 07/29/20092017 Melanocytic nevus of neck 07/29/20092017 Melanocytic nevus of trunk 07/16/200907/26 Other acne 01/08/2009 03/03/2012 NEVUS///BENIGN ARAVIND SKIN LEG 03/23/200702/13 SOLAR LENTIGINES///DYSCHROMIA OTHER 03/23/2007 03/03/2012 ACTINIC KERATOSIS (Premalignant AK) 03/08/2007 07/26/2018 Benign neoplasm of skin of trunk, except scrotum 03/08/2007 03/03/2012 FACE////BENIGN ARAVIND SKIN FACE NEC 03/08/2007 03/03/2012 NEVI///BENIGN ARAVIND SCALP/SKIN NECK 03/08/2007 03/03/2012 NEVI///BENIGN ARAVIND SKIN ARM 03/08/200703/03 SURGICAL SCAR & FIBROSIS OF SKIN 03/08/2007 03/16/2014 ACTINIC DAMAGE//CHR SOLAR SKIN DAMAGE NOS 200603/03/2012 Seborrheic Keratoses 03/08/2007 08/23/2014 M[place]O ANGIOMA 03/08/2007 03/16/2014 Inguinal hernia without ment ion of obstruction or gangrene, unilateral or unspecified, (not specified as recurrent) 12/27/2006 08/23/2014 Malignant melanoma of other specified sites of s kin 03/03/2012 Esophagitis 07/26/2018 Urinary calculus, unspecified Overview: Renal stones documented as of this encounter (statuses as of 10/20/2022) [facility] History of Past illness Narrative* Problem Noted Date Resolved Date Shoulder impingement syndrome, right 08/03/2017 07/26/2018 Chronic cholecystitis with calculus 08/06/2016 07/26/2018 Calculus of gallbladder with out cholecystitis without obstruction 07/15/2016 01/20/2021 Surgical Scars 03/16/2014 08/23/2014 Skin tag 03/16/2014 08/23/2014 Melanocytic Nevi of trunk: c hest, back, and abdomen areas: mostly Intradermal types 03/16/2014 07/26/2018 Melanocytic Nevi of upper extremity 03/16/2014 07/26/2018 BCC (basal cell carcinoma), face: R mid upper br idge nose 06/01/2013 03/16/2014 Postinflammatory skin changes 06/01/2013 Telangiectasia 12/31/2012 08/23/2014 [place] 12/31/2012 08/23/2014 Other specified disease of sebaceous glands 12/1308/23/2014 Morillo angioma 04/01/2012 08/23/2014 Dermatofibroma of right thigh 04/01/2012 Melanocytic nevi of face 03/03/2012 015 Melanocytic Nevus of upper extremity or shoulder 03/03/2012 03/16/2014 Solar Lentigines 03/03/2012 08/23/2014 Actinic skin damage 03/03/2012 08/23/2014 Neoplasm of Uncertain Behavior(NUB) of skin 10/201003/16/2014 Personal history of other ma lignant neoplasm of skin: BCC needing Moh's Surgery x1 stage 02/20/2010 05/17/2011 03/16/2014 Rectal bleeding 11/27/2010 08/23/2014 Melanocytic Nevus of legs 08/13/20102017 Open wound(s) (multiple) of unspecified site(s), without mention of complication 01/23/2010 03/03/2012 Melanocytic nevus of face 07/29/20092017 Melanocytic nevus of neck 07/29/20092017 Melanocytic nevus of trunk 07/16/200907/26 Other acne 01/08/2009 03/03/2012 NEVUS///BENIGN ARAVIND SKIN LEG 03/23/200702/13 SOLAR LENTIGINES///DYSCHROMIA OTHER 03/23/2007 03/03/2012 ACTINIC KERATOSIS (Premalignant AK) 03/08/2007 07/26/2018 Benign neoplasm of skin of trunk, except scrotum 03/08/2007 03/03/2012 FACE////BENIGN ARAVIND SKIN FACE NEC 03/08/2007 03/03/2012 NEVI///BENIGN ARAVIND SCALP/SKIN NECK 03/08/2007 03/03/2012 NEVI///BENIGN ARAVIND SKIN ARM 03/08/200703/03 SURGICAL SCAR & FIBROSIS OF SKIN 03/08/2007 03/16/2014 ACTINIC DAMAGE//CHR SOLAR SKIN DAMAGE NOS 200603/03/2012 Seborrheic Keratoses 03/08/2007 08/23/2014 M[place]O ANGIOMA 03/08/2007 03/16/2014 Inguinal hernia without ment ion of obstruction or gangrene, unilateral or unspecified, (not specified as recurrent) 12/27/2006 08/23/2014 Malignant melanoma of other specified sites of s kin 03/03/2012 Esophagitis 07/26/2018 Urinary calculus, unspecified Overview: Renal stones documented as of this encounter (statuses as of 10/22/2022) [facility] History of Past illness Narrative* Problem Noted Date Resolved Date Shoulder impingement syndrome, right 08/03/2017 07/26/2018 Chronic cholecystitis with calculus 08/06/2016 07/26/2018 Calculus of gallbladder with out cholecystitis without obstruction 07/15/2016 01/20/2021 Surgical Scars 03/16/2014 08/23/2014 Skin tag 03/16/2014 08/23/2014 Melanocytic Nevi of trunk: c hest, back, and abdomen areas: mostly Intradermal types 03/16/2014 07/26/2018 Melanocytic Nevi of upper extremity 03/16/2014 07/26/2018 BCC (basal cell carcinoma), face: R mid upper br idge nose 06/01/2013 03/16/2014 Postinflammatory skin changes 06/01/2013 Telangiectasia 12/31/2012 08/23/2014 [place] 12/31/2012 08/23/2014 Other specified disease of sebaceous glands 12/1308/23/2014 Morillo angioma 04/01/2012 08/23/2014 Dermatofibroma of right thigh 04/01/2012 Melanocytic nevi of face 03/03/2012 015 Melanocytic Nevus of upper extremity or shoulder 03/03/2012 03/16/2014 Solar Lentigines 03/03/2012 08/23/2014 Actinic skin damage 03/03/2012 08/23/2014 Neoplasm of Uncertain Behavior(NUB) of skin 10/201003/16/2014 Personal history of other ma lignant neoplasm of skin: BCC needing Moh's Surgery x1 stage 02/20/2010 05/17/2011 03/16/2014 Rectal bleeding 11/27/2010 08/23/2014 Melanocytic Nevus of legs 08/13/20102017 Open wound(s) (multiple) of unspecified site(s), without mention of complication 01/23/2010 03/03/2012 Melanocytic nevus of face 07/29/20092017 Melanocytic nevus of neck 07/29/20092017 Melanocytic nevus of trunk 07/16/200907/26 Other acne 01/08/2009 03/03/2012 NEVUS///BENIGN ARAVIND SKIN LEG 03/23/200702/13 SOLAR LENTIGINES///DYSCHROMIA OTHER 03/23/2007 03/03/2012 ACTINIC KERATOSIS (Premalignant AK) 03/08/2007 07/26/2018 Benign neoplasm of skin of trunk, except scrotum 03/08/2007 03/03/2012 FACE////BENIGN ARAVIND SKIN FACE NEC 03/08/2007 03/03/2012 NEVI///BENIGN ARAVIND SCALP/SKIN NECK 03/08/2007 03/03/2012 NEVI///BENIGN ARAVIND SKIN ARM 03/08/200703/03 SURGICAL SCAR & FIBROSIS OF SKIN 03/08/2007 03/16/2014 ACTINIC DAMAGE//CHR SOLAR SKIN DAMAGE NOS 200603/03/2012 Seborrheic Keratoses 03/08/2007 08/23/2014 M[place]O ANGIOMA 03/08/2007 03/16/2014 Inguinal hernia without ment ion of obstruction or gangrene, unilateral or unspecified, (not specified as recurrent) 12/27/2006 08/23/2014 Malignant melanoma of other specified sites of s kin 03/03/2012 Esophagitis 07/26/2018 Urinary calculus, unspecified Overview: Renal stones documented as of this encounter (statuses as of 10/28/2022) [facility] History of Past illness Narrative* Problem Noted Date Resolved Date Shoulder impingement syndrome, right 08/03/2017 07/26/2018 Chronic cholecystitis with calculus 08/06/2016 07/26/2018 Calculus of gallbladder with out cholecystitis without obstruction 07/15/2016 01/20/2021 Surgical Scars 03/16/2014 08/23/2014 Skin tag 03/16/2014 08/23/2014 Melanocytic Nevi of trunk: c hest, back, and abdomen areas: mostly Intradermal types 03/16/2014 07/26/2018 Melanocytic Nevi of upper extremity 03/16/2014 07/26/2018 BCC (basal cell carcinoma), face: R mid upper br idge nose 06/01/2013 03/16/2014 Postinflammatory skin changes 06/01/2013 Telangiectasia 12/31/2012 08/23/2014 [place] 12/31/2012 08/23/2014 Other specified disease of sebaceous glands 12/1308/23/2014 Morillo angioma 04/01/2012 08/23/2014 Dermatofibroma of right thigh 04/01/2012 Melanocytic nevi of face 03/03/2012 015 Melanocytic Nevus of upper extremity or shoulder 03/03/2012 03/16/2014 Solar Lentigines 03/03/2012 08/23/2014 Actinic skin damage 03/03/2012 08/23/2014 Neoplasm of Uncertain Behavior(NUB) of skin 10/201003/16/2014 Personal history of other ma lignant neoplasm of skin: BCC needing Moh's Surgery x1 stage 02/20/2010 05/17/2011 03/16/2014 Rectal bleeding 11/27/2010 08/23/2014 Melanocytic Nevus of legs 08/13/20102017 Open wound(s) (multiple) of unspecified site(s), without mention of complication 01/23/2010 03/03/2012 Melanocytic nevus of face 07/29/20092017 Melanocytic nevus of neck 07/29/20092017 Melanocytic nevus of trunk 07/16/200907/26 Other acne 01/08/2009 03/03/2012 NEVUS///BENIGN ARAVIND SKIN LEG 03/23/200702/13 SOLAR LENTIGINES///DYSCHROMIA OTHER 03/23/2007 03/03/2012 ACTINIC KERATOSIS (Premalignant AK) 03/08/2007 07/26/2018 Benign neoplasm of skin of trunk, except scrotum 03/08/2007 03/03/2012 FACE////BENIGN ARAVIND SKIN FACE NEC 03/08/2007 03/03/2012 NEVI///BENIGN ARAVIND SCALP/SKIN NECK 03/08/2007 03/03/2012 NEVI///BENIGN ARAVIND SKIN ARM 03/08/200703/03 SURGICAL SCAR & FIBROSIS OF SKIN 03/08/2007 03/16/2014 ACTINIC DAMAGE//CHR SOLAR SKIN DAMAGE NOS 200603/03/2012 Seborrheic Keratoses 03/08/2007 08/23/2014 M[place]O ANGIOMA 03/08/2007 03/16/2014 Inguinal hernia without ment ion of obstruction or gangrene, unilateral or unspecified, (not specified as recurrent) 12/27/2006 08/23/2014 Malignant melanoma of other specified sites of s kin 03/03/2012 Esophagitis 07/26/2018 Urinary calculus, unspecified Overview: Renal stones documented as of this encounter (statuses as of 11/04/2022) [facility] History of Past illness Narrative* Problem Noted Date Resolved Date Shoulder impingement syndrome, right 08/03/2017 07/26/2018 Chronic cholecystitis with calculus 08/06/2016 07/26/2018 Calculus of gallbladder with out cholecystitis without obstruction 07/15/2016 01/20/2021 Surgical Scars 03/16/2014 08/23/2014 Skin tag 03/16/2014 08/23/2014 Melanocytic Nevi of trunk: c hest, back, and abdomen areas: mostly Intradermal types 03/16/2014 07/26/2018 Melanocytic Nevi of upper extremity 03/16/2014 07/26/2018 BCC (basal cell carcinoma), face: R mid upper br idge nose 06/01/2013 03/16/2014 Postinflammatory skin changes 06/01/2013 Telangiectasia 12/31/2012 08/23/2014 [place] 12/31/2012 08/23/2014 Other specified disease of sebaceous glands 12/1308/23/2014 Morillo angioma 04/01/2012 08/23/2014 Dermatofibroma of right thigh 04/01/2012 Melanocytic nevi of face 03/03/2012 015 Melanocytic Nevus of upper extremity or shoulder 03/03/2012 03/16/2014 Solar Lentigines 03/03/2012 08/23/2014 Actinic skin damage 03/03/2012 08/23/2014 Neoplasm of Uncertain Behavior(NUB) of skin 10/201003/16/2014 Personal history of other ma lignant neoplasm of skin: BCC needing Moh's Surgery x1 stage 02/20/2010 05/17/2011 03/16/2014 Rectal bleeding 11/27/2010 08/23/2014 Melanocytic Nevus of legs 08/13/20102017 Open wound(s) (multiple) of unspecified site(s), without mention of complication 01/23/2010 03/03/2012 Melanocytic nevus of face 07/29/20092017 Melanocytic nevus of neck 07/29/20092017 Melanocytic nevus of trunk 07/16/200907/26 Other acne 01/08/2009 03/03/2012 NEVUS///BENIGN ARAVIND SKIN LEG 03/23/200702/13 SOLAR LENTIGINES///DYSCHROMIA OTHER 03/23/2007 03/03/2012 ACTINIC KERATOSIS (Premalignant AK) 03/08/2007 07/26/2018 Benign neoplasm of skin of trunk, except scrotum 03/08/2007 03/03/2012 FACE////BENIGN ARAVIND SKIN FACE NEC 03/08/2007 03/03/2012 NEVI///BENIGN ARAVIND SCALP/SKIN NECK 03/08/2007 03/03/2012 NEVI///BENIGN ARAVIND SKIN ARM 03/08/200703/03 SURGICAL SCAR & FIBROSIS OF SKIN 03/08/2007 03/16/2014 ACTINIC DAMAGE//CHR SOLAR SKIN DAMAGE NOS 200603/03/2012 Seborrheic Keratoses 03/08/2007 08/23/2014 MORILLO ANGIOMA 03/08/2007 03/16/2014 Inguinal hernia without ment ion of obstruction or gangrene, unilateral or unspecified, (not specified as recurrent) 12/27/2006 08/23/2014 Malignant melanoma of other specified sites of s kin 03/03/2012 Esophagitis 07/26/2018 Urinary calculus, unspecified Overview: Renal stones documented as of this encounter (statuses as of 11/12/2022) [facility] History of Past illness Narrative* Problem Noted Date Resolved Date Shoulder impingement syndrome, right 08/03/2017 07/26/2018 Chronic cholecystitis with calculus 08/06/2016 07/26/2018 Calculus of gallbladder with out cholecystitis without obstruction 07/15/2016 01/20/2021 Surgical Scars 03/16/2014 08/23/2014 Skin tag 03/16/2014 08/23/2014 Melanocytic Nevi of trunk: c hest, back, and abdomen areas: mostly Intradermal types 03/16/2014 07/26/2018 Melanocytic Nevi of upper extremity 03/16/2014 07/26/2018 BCC (basal cell carcinoma), face: R mid upper br idge nose 06/01/2013 03/16/2014 Postinflammatory skin changes 06/01/2013 Telangiectasia 12/31/2012 08/23/2014 [place] 12/31/2012 08/23/2014 Other specified disease of sebaceous glands 12/1308/23/2014 Morillo angioma 04/01/2012 08/23/2014 Dermatofibroma of right thigh 04/01/2012 Melanocytic nevi of face 03/03/2012 015 Melanocytic Nevus of upper extremity or shoulder 03/03/2012 03/16/2014 Solar Lentigines 03/03/2012 08/23/2014 Actinic skin damage 03/03/2012 08/23/2014 Neoplasm of Uncertain Behavior(NUB) of skin 10/201003/16/2014 Personal history of other ma lignant neoplasm of skin: BCC needing Moh's Surgery x1 stage 02/20/2010 05/17/2011 03/16/2014 Rectal bleeding 11/27/2010 08/23/2014 Melanocytic Nevus of legs 08/13/20102017 Open wound(s) (multiple) of unspecified site(s), without mention of complication 01/23/2010 03/03/2012 Melanocytic nevus of face 07/29/20092017 Melanocytic nevus of neck 07/29/20092017 Melanocytic nevus of trunk 07/16/200907/26 Other acne 01/08/2009 03/03/2012 NEVUS///BENIGN ARAVIND SKIN LEG 03/23/200702/13 SOLAR LENTIGINES///DYSCHROMIA OTHER 03/23/2007 03/03/2012 ACTINIC KERATOSIS (Premalignant AK) 03/08/2007 07/26/2018 Benign neoplasm of skin of trunk, except scrotum 03/08/2007 03/03/2012 FACE////BENIGN ARAVIND SKIN FACE NEC 03/08/2007 03/03/2012 NEVI///BENIGN ARAVIND SCALP/SKIN NECK 03/08/2007 03/03/2012 NEVI///BENIGN ARAVIND SKIN ARM 03/08/200703/03 SURGICAL SCAR & FIBROSIS OF SKIN 03/08/2007 03/16/2014 ACTINIC DAMAGE//CHR SOLAR SKIN DAMAGE NOS 200603/03/2012 Seborrheic Keratoses 03/08/2007 08/23/2014 MORILLO ANGIOMA 03/08/2007 03/16/2014 Inguinal hernia without ment ion of obstruction or gangrene, unilateral or unspecified, (not specified as recurrent) 12/27/2006 08/23/2014 Malignant melanoma of other specified sites of s kin 03/03/2012 Esophagitis 07/26/2018 Urinary calculus, unspecified Overview: Renal stones documented as of this encounter (statuses as of 11/27/2022) [facility] History of Past illness Narrative* Problem Noted Date Resolved Date Shoulder impingement syndrome, right 08/03/2017 07/26/2018 Chronic cholecystitis with calculus 08/06/2016 07/26/2018 Calculus of gallbladder with out cholecystitis without obstruction 07/15/2016 01/20/2021 Surgical Scars 03/16/2014 08/23/2014 Skin tag 03/16/2014 08/23/2014 Melanocytic Nevi of trunk: c hest, back, and abdomen areas: mostly Intradermal types 03/16/2014 07/26/2018 Melanocytic Nevi of upper extremity 03/16/2014 07/26/2018 BCC (basal cell carcinoma), face: R mid upper br idge nose 06/01/2013 03/16/2014 Postinflammatory skin changes 06/01/2013 Telangiectasia 12/31/2012 08/23/2014 [place] 12/31/2012 08/23/2014 Other specified disease of sebaceous glands 12/1308/23/2014 Morillo angioma 04/01/2012 08/23/2014 Dermatofibroma of right thigh 04/01/2012 Melanocytic nevi of face 03/03/2012 015 Melanocytic Nevus of upper extremity or shoulder 03/03/2012 03/16/2014 Solar Lentigines 03/03/2012 08/23/2014 Actinic skin damage 03/03/2012 08/23/2014 Neoplasm of Uncertain Behavior(NUB) of skin 10/201003/16/2014 Personal history of other ma lignant neoplasm of skin: BCC needing Moh's Surgery x1 stage 02/20/2010 05/17/2011 03/16/2014 Rectal bleeding 11/27/2010 08/23/2014 Melanocytic Nevus of legs 08/13/20102017 Open wound(s) (multiple) of unspecified site(s), without mention of complication 01/23/2010 03/03/2012 Melanocytic nevus of face 07/29/20092017 Melanocytic nevus of neck 07/29/20092017 Melanocytic nevus of trunk 07/16/200907/26 Other acne 01/08/2009 03/03/2012 NEVUS///BENIGN ARAVIND SKIN LEG 03/23/200702/13 SOLAR LENTIGINES///DYSCHROMIA OTHER 03/23/2007 03/03/2012 ACTINIC KERATOSIS (Premalignant AK) 03/08/2007 07/26/2018 Benign neoplasm of skin of trunk, except scrotum 03/08/2007 03/03/2012 FACE////BENIGN ARAVIND SKIN FACE NEC 03/08/2007 03/03/2012 NEVI///BENIGN ARAVIND SCALP/SKIN NECK 03/08/2007 03/03/2012 NEVI///BENIGN ARAVIND SKIN ARM 03/08/200703/03 SURGICAL SCAR & FIBROSIS OF SKIN 03/08/2007 03/16/2014 ACTINIC DAMAGE//CHR SOLAR SKIN DAMAGE NOS 200603/03/2012 Seborrheic Keratoses 03/08/2007 08/23/2014 MORILLO ANGIOMA 03/08/2007 03/16/2014 Inguinal hernia without ment ion of obstruction or gangrene, unilateral or unspecified, (not specified as recurrent) 12/27/2006 08/23/2014 Malignant melanoma of other specified sites of s kin 03/03/2012 Esophagitis 07/26/2018 Urinary calculus, unspecified Overview: Renal stones documented as of this encounter (statuses as of 12/03/2022) [facility] History of Past illness Narrative* Problem Noted Date Resolved Date Shoulder impingement syndrome, right 08/03/2017 07/26/2018 Chronic cholecystitis with calculus 08/06/2016 07/26/2018 Calculus of gallbladder with out cholecystitis without obstruction 07/15/2016 01/20/2021 Surgical Scars 03/16/2014 08/23/2014 Skin tag 03/16/2014 08/23/2014 Melanocytic Nevi of trunk: c hest, back, and abdomen areas: mostly Intradermal types 03/16/2014 07/26/2018 Melanocytic Nevi of upper extremity 03/16/2014 07/26/2018 BCC (basal cell carcinoma), face: R mid upper br idge nose 06/01/2013 03/16/2014 Postinflammatory skin changes 06/01/2013 Telangiectasia 12/31/2012 08/23/2014 [place] 12/31/2012 08/23/2014 Other specified disease of sebaceous glands 12/1308/23/2014 Morillo angioma 04/01/2012 08/23/2014 Dermatofibroma of right thigh 04/01/2012 Melanocytic nevi of face 03/03/2012 015 Melanocytic Nevus of upper extremity or shoulder 03/03/2012 03/16/2014 Solar Lentigines 03/03/2012 08/23/2014 Actinic skin damage 03/03/2012 08/23/2014 Neoplasm of Uncertain Behavior(NUB) of skin 10/201003/16/2014 Personal history of other ma lignant neoplasm of skin: BCC needing Moh's Surgery x1 stage 02/20/2010 05/17/2011 03/16/2014 Rectal bleeding 11/27/2010 08/23/2014 Melanocytic Nevus of legs 08/13/20102017 Open wound(s) (multiple) of unspecified site(s), without mention of complication 01/23/2010 03/03/2012 Melanocytic nevus of face 07/29/20092017 Melanocytic nevus of neck 07/29/20092017 Melanocytic nevus of trunk 07/16/200907/26 Other acne 01/08/2009 03/03/2012 NEVUS///BENIGN ARAVIND SKIN LEG 03/23/200702/13 SOLAR LENTIGINES///DYSCHROMIA OTHER 03/23/2007 03/03/2012 ACTINIC KERATOSIS (Premalignant AK) 03/08/2007 07/26/2018 Benign neoplasm of skin of trunk, except scrotum 03/08/2007 03/03/2012 FACE////BENIGN ARAVIND SKIN FACE NEC 03/08/2007 03/03/2012 NEVI///BENIGN ARAVIND SCALP/SKIN NECK 03/08/2007 03/03/2012 NEVI///BENIGN ARAVIND SKIN ARM 03/08/200703/03 SURGICAL SCAR & FIBROSIS OF SKIN 03/08/2007 03/16/2014 ACTINIC DAMAGE//CHR SOLAR SKIN DAMAGE NOS 200603/03/2012 Seborrheic Keratoses 03/08/2007 08/23/2014 MORILLO ANGIOMA 03/08/2007 03/16/2014 Inguinal hernia without ment ion of obstruction or gangrene, unilateral or unspecified, (not specified as recurrent) 12/27/2006 08/23/2014 Malignant melanoma of other specified sites of s kin 03/03/2012 Esophagitis 07/26/2018 Urinary calculus, unspecified Overview: Renal stones documented as of this encounter (statuses as of 12/10/2022) [facility] History of Past illness Narrative* Problem Noted Date Diagnosed Date Resolved Date Shoulder impingement syndrome, right 08/03/2017 07/26/2018 Chronic cholecystitis with calculus 08/06/2016 07/26/2018 Calculus of gallbladder with out cholecystitis without obstruction 07/15/2016 01/20/2021 Surgical Scars 03/16/2014 08/23/2014 Skin tag 03/16/2014 08/23/2014 Melanocytic Nevi of trunk: c hest, back, and abdomen areas: mostly Intradermal types 03/16/2014 07/26/2018 Melanocytic Nevi of upper extremity 03/16/2014 07/26/2018 BCC (basal cell carcinoma), face: R mid upper bridge nose 06/01/2013 03/16/2014 Postinflammatory skin changes 06/01/2013 08/23/2014 Telangiectasia 12/31/2012 08/23/2014 Comedo 12/31/2012 08/23/2014 Other specified disease of sebaceous glands 12/31/2012 08/23/2014 Morillo angioma 04/01/2012 08/23/2014 Dermatofibroma of right thigh 04/01/2012 08/23/2014 Melanocytic nevi of face 03/03/201204/2015 Melanocytic Nevus of upper e xtremity or shoulder 03/03/2012 03/16/2014 Solar Lentigines 03/03/2012 08/23/2014 Actinic skin damage 03/03/2012 08/23/19 Neoplasm of Uncertain Behavior(NUB) of skin 05/17/2011 03/16/2014 Personal history of other ma lignant neoplasm of skin: BCC needing Moh's Surgery x1 stage 02/20/2010 05/17/2011 03/16/2014 Rectal bleeding 11/27/2010 08/23/2014 Melanocytic Nevus of legs 08/13/2010 Open wound(s) (multiple) of unspecified site(s), without mention of complication 01/23/2010 03/03/2012 Melanocytic nevus of face 07/29/2009 Melanocytic nevus of neck 07/29/2009 Melanocytic nevus of trunk 07/16/2009 1 09/26/2017 Other acne 01/08/2009 03/03/2012 NEVUS///BENIGN ARAVIND SKIN LEG 03/23/2007 03/03/2012 SOLAR LENTIGINES///DYSCHROMIA OTHER 03/23/2007 03/03/2012 ACTINIC KERATOSIS (Premalignant AK) 03/08/2007 07/26/2018 Benign neoplasm of skin of t runk, except scrotum 03/08/2007 03/03/2012 FACE////BENIGN ARAVIND SKIN FACE NEC 03/08/2007 03/03/2012 NEVI///BENIGN ARAVIND SCALP/SKIN NECK 03/08/2007 03/03/2012 NEVI///BENIGN ARAVIND SKIN ARM 03/08/2007 0 03/03/2012 SURGICAL SCAR & FIBROSIS OF SKIN 03/08/2007 03/16/2014 ACTINIC DAMAGE//CHR SOLAR SKIN DAMAGE NOS 03/08/2007 03/03/2012 Seborrheic Keratoses 03/08/2007 015 MORILLO ANGIOMA 03/08/2007 03/16/2014 Inguinal hernia without ment ion of obstruction or gangrene, unilateral or unspecified, (not specified as recurrent) 12/27/2006 08/23/2014 Malignant melanoma of other specified sites of skin 03/03/2012 Esophagitis 07/26/2018 Urinary calculus, unspecified 08/23/2014 Overview: Renal stones documented as of this encounter (statuses as of 02/27/2023) [facility] History of Past illness Narrative* Problem Noted Date Diagnosed Date Resolved Date Shoulder impingement syndrome, right 08/03/2017 07/26/2018 Chronic cholecystitis with calculus 08/06/2016 07/26/2018 Calculus of gallbladder with out cholecystitis without obstruction 07/15/2016 01/20/2021 Surgical Scars 03/16/2014 08/23/2014 Skin tag 03/16/2014 08/23/2014 Melanocytic Nevi of trunk: c hest, back, and abdomen areas: mostly Intradermal types 03/16/2014 07/26/2018 Melanocytic Nevi of upper extremity 03/16/2014 07/26/2018 BCC (basal cell carcinoma), face: R mid upper bridge nose 06/01/2013 03/16/2014 Postinflammatory skin changes 06/01/2013 08/23/2014 Telangiectasia 12/31/2012 08/23/2014 Com[place] 12/31/2012 08/23/2014 Other specified disease of sebaceous glands 12/31/2012 08/23/2014 Morillo angioma 04/01/2012 08/23/2014 Dermatofibroma of right thigh 04/01/2012 08/23/2014 Melanocytic nevi of face 03/03/201204/2015 Melanocytic Nevus of upper e xtremity or shoulder 03/03/2012 03/16/2014 Solar Lentigines 03/03/2012 08/23/2014 Actinic skin damage 03/03/2012 08/23/19 15 Neoplasm of Uncertain Behavior(NUB) of skin 05/17/2011 03/16/2014 Personal history of other ma lignant neoplasm of skin: BCC needing Moh's Surgery x1 stage 02/20/2010 05/17/2011 03/16/2014 Rectal bleeding 11/27/2010 08/23/2014 Melanocytic Nevus of legs 08/13/2010 Open wound(s) (multiple) of unspecified site(s), without mention of complication 01/23/2010 03/03/2012 Melanocytic nevus of face 07/29/2009 Melanocytic nevus of neck 07/29/2009 Melanocytic nevus of trunk 07/16/2009 1 09/26/2017 Other acne 01/08/2009 03/03/2012 NEVUS///BENIGN ARAVIND SKIN LEG 03/23/2007 03/03/2012 SOLAR LENTIGINES///DYSCHROMIA OTHER 03/23/2007 03/03/2012 ACTINIC KERATOSIS (Premalignant AK) 03/08/2007 07/26/2018 Benign neoplasm of skin of t runk, except scrotum 03/08/2007 03/03/2012 FACE////BENIGN ARAVIND SKIN FACE NEC 03/08/2007 03/03/2012 NEVI///BENIGN ARAVIND SCALP/SKIN NECK 03/08/2007 03/03/2012 NEVI///BENIGN ARAVIND SKIN ARM 03/08/2007 0 03/03/2012 SURGICAL SCAR & FIBROSIS OF SKIN 03/08/2007 03/16/2014 ACTINIC DAMAGE//CHR SOLAR SKIN DAMAGE NOS 03/08/2007 03/03/2012 Seborrheic Keratoses 03/08/2007 015 MORILLO ANGIOMA 03/08/2007 03/16/2014 Inguinal hernia without ment ion of obstruction or gangrene, unilateral or unspecified, (not specified as recurrent) 12/27/2006 08/23/2014 Malignant melanoma of other specified sites of skin 03/03/2012 Esophagitis 07/26/2018 Urinary calculus, unspecified 08/23/2014 Overview: Renal stones documented as of this encounter (statuses as of 04/26/2023) [facility] History of Past illness Narrative* Problem Noted Date Diagnosed Date Resolved Date Shoulder impingement syndrome, right 08/03/2017 07/26/2018 Chronic cholecystitis with calculus 08/06/2016 07/26/2018 Calculus of gallbladder with out cholecystitis without obstruction 07/15/2016 01/20/2021 Surgical Scars 03/16/2014 08/23/2014 Skin tag 03/16/2014 08/23/2014 Melanocytic Nevi of trunk: c hest, back, and abdomen areas: mostly Intradermal types 03/16/2014 07/26/2018 Melanocytic Nevi of upper extremity 03/16/2014 07/26/2018 BCC (basal cell carcinoma), face: R mid upper bridge nose 06/01/2013 03/16/2014 Postinflammatory skin changes 06/01/2013 08/23/2014 Telangiectasia 12/31/2012 08/23/2014 Com[place] 12/31/2012 08/23/2014 Other specified disease of sebaceous glands 12/31/2012 08/23/2014 Morillo angioma 04/01/2012 08/23/2014 Dermatofibroma of right thigh 04/01/2012 08/23/2014 Melanocytic nevi of face 03/03/201204/2015 Melanocytic Nevus of upper e xtremity or shoulder 03/03/2012 03/16/2014 Solar Lentigines 03/03/2012 08/23/2014 Actinic skin damage 03/03/2012 08/23/19 Neoplasm of Uncertain Behavior(NUB) of skin 05/17/2011 03/16/2014 Personal history of other ma lignant neoplasm of skin: BCC needing Moh's Surgery x1 stage 02/20/2010 05/17/2011 03/16/2014 Rectal bleeding 11/27/2010 08/23/2014 Melanocytic Nevus of legs 08/13/2010 Open wound(s) (multiple) of unspecified site(s), without mention of complication 01/23/2010 03/03/2012 Melanocytic nevus of face 07/29/2009 Melanocytic nevus of neck 07/29/2009 Melanocytic nevus of trunk 07/16/2009 1 09/26/2017 Other acne 01/08/2009 03/03/2012 NEVUS///BENIGN ARAVIND SKIN LEG 03/23/2007 03/03/2012 SOLAR LENTIGINES///DYSCHROMIA OTHER 03/23/2007 03/03/2012 ACTINIC KERATOSIS (Premalignant AK) 03/08/2007 07/26/2018 Benign neoplasm of skin of t runk, except scrotum 03/08/2007 03/03/2012 FACE////BENIGN ARAVIND SKIN FACE NEC 03/08/2007 03/03/2012 NEVI///BENIGN ARAVIND SCALP/SKIN NECK 03/08/2007 03/03/2012 NEVI///BENIGN ARAVIND SKIN ARM 03/08/2007 0 03/03/2012 SURGICAL SCAR & FIBROSIS OF SKIN 03/08/2007 03/16/2014 ACTINIC DAMAGE//CHR SOLAR SKIN DAMAGE NOS 03/08/2007 03/03/2012 Seborrheic Keratoses 03/08/2007 015 MORILLO ANGIOMA 03/08/2007 03/16/2014 Inguinal hernia without ment ion of obstruction or gangrene, unilateral or unspecified, (not specified as recurrent) 12/27/2006 08/23/2014 Malignant melanoma of other specified sites of skin 03/03/2012 Esophagitis 07/26/2018 Urinary calculus, unspecified 08/23/2014 Overview: Renal stones documented as of this encounter (statuses as of 05/02/2023) [facility] History of Past illness Narrative* Problem Noted Date Diagnosed Date Resolved Date Shoulder impingement syndrome, right 08/03/2017 07/26/2018 Chronic cholecystitis with calculus 08/06/2016 07/26/2018 Calculus of gallbladder with out cholecystitis without obstruction 07/15/2016 01/20/2021 Surgical Scars 03/16/2014 08/23/2014 Skin tag 03/16/2014 08/23/2014 Melanocytic Nevi of trunk: c hest, back, and abdomen areas: mostly Intradermal types 03/16/2014 07/26/2018 Melanocytic Nevi of upper extremity 03/16/2014 07/26/2018 BCC (basal cell carcinoma), face: R mid upper bridge nose 06/01/2013 03/16/2014 Postinflammatory skin changes 06/01/2013 08/23/2014 Telangiectasia 12/31/2012 08/23/2014 Com[place] 12/31/2012 08/23/2014 Other specified disease of sebaceous glands 12/31/2012 08/23/2014 Morillo angioma 04/01/2012 08/23/2014 Dermatofibroma of right thigh 04/01/2012 08/23/2014 Melanocytic nevi of face 03/03/201204/2015 Melanocytic Nevus of upper e xtremity or shoulder 03/03/2012 03/16/2014 Solar Lentigines 03/03/2012 08/23/2014 Actinic skin damage 03/03/2012 08/23/19 15 Neoplasm of Uncertain Behavior(NUB) of skin 05/17/2011 03/16/2014 Personal history of other ma lignant neoplasm of skin: BCC needing Moh's Surgery x1 stage 02/20/2010 05/17/2011 03/16/2014 Rectal bleeding 11/27/2010 08/23/2014 Melanocytic Nevus of legs 08/13/2010 Open wound(s) (multiple) of unspecified site(s), without mention of complication 01/23/2010 03/03/2012 Melanocytic nevus of face 07/29/2009 Melanocytic nevus of neck 07/29/2009 Melanocytic nevus of trunk 07/16/2009 1 09/26/2017 Other acne 01/08/2009 03/03/2012 NEVUS///BENIGN ARAVIND SKIN LEG 03/23/2007 03/03/2012 SOLAR LENTIGINES///DYSCHROMIA OTHER 03/23/2007 03/03/2012 ACTINIC KERATOSIS (Premalignant AK) 03/08/2007 07/26/2018 Benign neoplasm of skin of t runk, except scrotum 03/08/2007 03/03/2012 FACE////BENIGN ARAVIND SKIN FACE NEC 03/08/2007 03/03/2012 NEVI///BENIGN ARAVIND SCALP/SKIN NECK 03/08/2007 03/03/2012 NEVI///BENIGN ARAVIND SKIN ARM 03/08/2007 0 03/03/2012 SURGICAL SCAR & FIBROSIS OF SKIN 03/08/2007 03/16/2014 ACTINIC DAMAGE//CHR SOLAR SKIN DAMAGE NOS 03/08/2007 03/03/2012 Seborrheic Keratoses 03/08/2007 015 MORILLO ANGIOMA 03/08/2007 03/16/2014 Inguinal hernia without ment ion of obstruction or gangrene, unilateral or unspecified, (not specified as recurrent) 12/27/2006 08/23/2014 Malignant melanoma of other specified sites of skin 03/03/2012 Esophagitis 07/26/2018 Urinary calculus, unspecified 08/23/2014 Overview: Renal stones documented as of this encounter (statuses as of 05/09/2023) [facility] History of Past illness Narrative* Problem Noted Date Diagnosed Date Resolved Date Shoulder impingement syndrome, right 08/03/2017 07/26/2018 Chronic cholecystitis with calculus 08/06/2016 07/26/2018 Calculus of gallbladder with out cholecystitis without obstruction 07/15/2016 01/20/2021 Surgical Scars 03/16/2014 08/23/2014 Skin tag 03/16/2014 08/23/2014 Melanocytic Nevi of trunk: c hest, back, and abdomen areas: mostly Intradermal types 03/16/2014 07/26/2018 Melanocytic Nevi of upper extremity 03/16/2014 07/26/2018 BCC (basal cell carcinoma), face: R mid upper bridge nose 06/01/2013 03/16/2014 Postinflammatory skin changes 06/01/2013 08/23/2014 Telangiectasia 12/31/2012 08/23/2014 [place] 12/31/2012 08/23/2014 Other specified disease of sebaceous glands 12/31/2012 08/23/2014 Morillo angioma 04/01/2012 08/23/2014 Dermatofibroma of right thigh 04/01/2012 08/23/2014 Melanocytic nevi of face 03/03/201204/2015 Melanocytic Nevus of upper e xtremity or shoulder 03/03/2012 03/16/2014 Solar Lentigines 03/03/2012 08/23/2014 Actinic skin damage 03/03/2012 08/23/19 15 Neoplasm of Uncertain Behavior(NUB) of skin 05/17/2011 03/16/2014 Personal history of other ma lignant neoplasm of skin: BCC needing Moh's Surgery x1 stage 02/20/2010 05/17/2011 03/16/2014 Rectal bleeding 11/27/2010 08/23/2014 Melanocytic Nevus of legs 08/13/2010 Open wound(s) (multiple) of unspecified site(s), without mention of complication 01/23/2010 03/03/2012 Melanocytic nevus of face 07/29/2009 Melanocytic nevus of neck 07/29/2009 Melanocytic nevus of trunk 07/16/2009 1 09/26/2017 Other acne 01/08/2009 03/03/2012 NEVUS///BENIGN ARAVIND SKIN LEG 03/23/2007 03/03/2012 SOLAR LENTIGINES///DYSCHROMIA OTHER 03/23/2007 03/03/2012 ACTINIC KERATOSIS (Premalignant AK) 03/08/2007 07/26/2018 Benign neoplasm of skin of t runk, except scrotum 03/08/2007 03/03/2012 FACE////BENIGN ARAVIND SKIN FACE NEC 03/08/2007 03/03/2012 NEVI///BENIGN ARAVIND SCALP/SKIN NECK 03/08/2007 03/03/2012 NEVI///BENIGN ARAVIND SKIN ARM 03/08/2007 0 03/03/2012 SURGICAL SCAR & FIBROSIS OF SKIN 03/08/2007 03/16/2014 ACTINIC DAMAGE//CHR SOLAR SKIN DAMAGE NOS 03/08/2007 03/03/2012 Seborrheic Keratoses 03/08/2007 015 MORILLO ANGIOMA 03/08/2007 03/16/2014 Inguinal hernia without ment ion of obstruction or gangrene, unilateral or unspecified, (not specified as recurrent) 12/27/2006 08/23/2014 Malignant melanoma of other specified sites of skin 03/03/2012 Esophagitis 07/26/2018 Urinary calculus, unspecified 08/23/2014 Overview: Renal stones documented as of this encounter (statuses as of 05/10/2023) [facility] History of Past illness Narrative* Problem Noted Date Diagnosed Date Resolved Date Shoulder impingement syndrome, right 08/03/2017 07/26/2018 Chronic cholecystitis with calculus 08/06/2016 07/26/2018 Calculus of gallbladder with out cholecystitis without obstruction 07/15/2016 01/20/2021 Surgical Scars 03/16/2014 08/23/2014 Skin tag 03/16/2014 08/23/2014 Melanocytic Nevi of trunk: c hest, back, and abdomen areas: mostly Intradermal types 03/16/2014 07/26/2018 Melanocytic Nevi of upper extremity 03/16/2014 07/26/2018 BCC (basal cell carcinoma), face: R mid upper bridge nose 06/01/2013 03/16/2014 Postinflammatory skin changes 06/01/2013 08/23/2014 Telangiectasia 12/31/2012 08/23/2014 Com[place] 12/31/2012 08/23/2014 Other specified disease of sebaceous glands 12/31/2012 08/23/2014 Morillo angioma 04/01/2012 08/23/2014 Dermatofibroma of right thigh 04/01/2012 08/23/2014 Melanocytic nevi of face 03/03/201204/2015 Melanocytic Nevus of upper e xtremity or shoulder 03/03/2012 03/16/2014 Solar Lentigines 03/03/2012 08/23/2014 Actinic skin damage 03/03/2012 08/23/19 15 Neoplasm of Uncertain Behavior(NUB) of skin 05/17/2011 03/16/2014 Personal history of other ma lignant neoplasm of skin: BCC needing Moh's Surgery x1 stage 02/20/2010 05/17/2011 03/16/2014 Rectal bleeding 11/27/2010 08/23/2014 Melanocytic Nevus of legs 08/13/2010 Open wound(s) (multiple) of unspecified site(s), without mention of complication 01/23/2010 03/03/2012 Melanocytic nevus of face 07/29/2009 Melanocytic nevus of neck 07/29/2009 Melanocytic nevus of trunk 07/16/2009 1 09/26/2017 Other acne 01/08/2009 03/03/2012 NEVUS///BENIGN ARAVIND SKIN LEG 03/23/2007 03/03/2012 SOLAR LENTIGINES///DYSCHROMIA OTHER 03/23/2007 03/03/2012 ACTINIC KERATOSIS (Premalignant AK) 03/08/2007 07/26/2018 Benign neoplasm of skin of t runk, except scrotum 03/08/2007 03/03/2012 FACE////BENIGN ARAVIND SKIN FACE NEC 03/08/2007 03/03/2012 NEVI///BENIGN ARAVIND SCALP/SKIN NECK 03/08/2007 03/03/2012 NEVI///BENIGN ARAVIND SKIN ARM 03/08/2007 0 03/03/2012 SURGICAL SCAR & FIBROSIS OF SKIN 03/08/2007 03/16/2014 ACTINIC DAMAGE//CHR SOLAR SKIN DAMAGE NOS 03/08/2007 03/03/2012 Seborrheic Keratoses 03/08/2007 015 MORILLO ANGIOMA 03/08/2007 03/16/2014 Inguinal hernia without ment ion of obstruction or gangrene, unilateral or unspecified, (not specified as recurrent) 12/27/2006 08/23/2014 Malignant melanoma of other specified sites of skin 03/03/2012 Esophagitis 07/26/2018 Urinary calculus, unspecified 08/23/2014 Overview: Renal stones documented as of this encounter (statuses as of 05/23/2023) [facility] History of Past illness Narrative* Problem Noted Date Diagnosed Date Resolved Date Shoulder impingement syndrome, right 08/03/2017 07/26/2018 Chronic cholecystitis with calculus 08/06/2016 07/26/2018 Calculus of gallbladder with out cholecystitis without obstruction 07/15/2016 01/20/2021 Surgical Scars 03/16/2014 08/23/2014 Skin tag 03/16/2014 08/23/2014 Melanocytic Nevi of trunk: c hest, back, and abdomen areas: mostly Intradermal types 03/16/2014 07/26/2018 Melanocytic Nevi of upper extremity 03/16/2014 07/26/2018 BCC (basal cell carcinoma), face: R mid upper bridge nose 06/01/2013 03/16/2014 Postinflammatory skin changes 06/01/2013 08/23/2014 Telangiectasia 12/31/2012 08/23/2014 [place] 12/31/2012 08/23/2014 Other specified disease of sebaceous glands 12/31/2012 08/23/2014 Morillo angioma 04/01/2012 08/23/2014 Dermatofibroma of right thigh 04/01/2012 08/23/2014 Melanocytic nevi of face 03/03/201204/2015 Melanocytic Nevus of upper e xtremity or shoulder 03/03/2012 03/16/2014 Solar Lentigines 03/03/2012 08/23/2014 Actinic skin damage 03/03/2012 08/23/19 15 Neoplasm of Uncertain Behavior(NUB) of skin 05/17/2011 03/16/2014 Personal history of other ma lignant neoplasm of skin: BCC needing Moh's Surgery x1 stage 02/20/2010 05/17/2011 03/16/2014 Rectal bleeding 11/27/2010 08/23/2014 Melanocytic Nevus of legs 08/13/2010 Open wound(s) (multiple) of unspecified site(s), without mention of complication 01/23/2010 03/03/2012 Melanocytic nevus of face 07/29/2009 Melanocytic nevus of neck 07/29/2009 Melanocytic nevus of trunk 07/16/2009 1 09/26/2017 Other acne 01/08/2009 03/03/2012 NEVUS///BENIGN ARAVIND SKIN LEG 03/23/2007 03/03/2012 SOLAR LENTIGINES///DYSCHROMIA OTHER 03/23/2007 03/03/2012 ACTINIC KERATOSIS (Premalignant AK) 03/08/2007 07/26/2018 Benign neoplasm of skin of t runk, except scrotum 03/08/2007 03/03/2012 FACE////BENIGN ARAVIND SKIN FACE NEC 03/08/2007 03/03/2012 NEVI///BENIGN ARAVIND SCALP/SKIN NECK 03/08/2007 03/03/2012 NEVI///BENIGN ARAVIND SKIN ARM 03/08/2007 0 03/03/2012 SURGICAL SCAR & FIBROSIS OF SKIN 03/08/2007 03/16/2014 ACTINIC DAMAGE//CHR SOLAR SKIN DAMAGE NOS 03/08/2007 03/03/2012 Seborrheic Keratoses 03/08/2007 015 MORILLO ANGIOMA 03/08/2007 03/16/2014 Inguinal hernia without ment ion of obstruction or gangrene, unilateral or unspecified, (not specified as recurrent) 12/27/2006 08/23/2014 Malignant melanoma of other specified sites of skin 03/03/2012 Esophagitis 07/26/2018 Urinary calculus, unspecified 08/23/2014 Overview: Renal stones documented as of this encounter (statuses as of 05/30/2023) [facility] History of Past illness Narrative* Problem Noted Date Diagnosed Date Resolved Date Shoulder impingement syndrome, right 08/03/2017 07/26/2018 Chronic cholecystitis with calculus 08/06/2016 07/26/2018 Calculus of gallbladder with out cholecystitis without obstruction 07/15/2016 01/20/2021 Surgical Scars 03/16/2014 08/23/2014 Skin tag 03/16/2014 08/23/2014 Melanocytic Nevi of trunk: c hest, back, and abdomen areas: mostly Intradermal types 03/16/2014 07/26/2018 Melanocytic Nevi of upper extremity 03/16/2014 07/26/2018 BCC (basal cell carcinoma), face: R mid upper bridge nose 06/01/2013 03/16/2014 Postinflammatory skin changes 06/01/2013 08/23/2014 Telangiectasia 12/31/2012 08/23/2014 [place] 12/31/2012 08/23/2014 Other specified disease of sebaceous glands 12/31/2012 08/23/2014 Morillo angioma 04/01/2012 08/23/2014 Dermatofibroma of right thigh 04/01/2012 08/23/2014 Melanocytic nevi of face 03/03/201204/2015 Melanocytic Nevus of upper e xtremity or shoulder 03/03/2012 03/16/2014 Solar Lentigines 03/03/2012 08/23/2014 Actinic skin damage 03/03/2012 08/23/19 15 Neoplasm of Uncertain Behavior(NUB) of skin 05/17/2011 03/16/2014 Personal history of other ma lignant neoplasm of skin: BCC needing Moh's Surgery x1 stage 02/20/2010 05/17/2011 03/16/2014 Rectal bleeding 11/27/2010 08/23/2014 Melanocytic Nevus of legs 08/13/2010 Open wound(s) (multiple) of unspecified site(s), without mention of complication 01/23/2010 03/03/2012 Melanocytic nevus of face 07/29/2009 Melanocytic nevus of neck 07/29/2009 Melanocytic nevus of trunk 07/16/2009 1 09/26/2017 Other acne 01/08/2009 03/03/2012 NEVUS///BENIGN ARAVIND SKIN LEG 03/23/2007 03/03/2012 SOLAR LENTIGINES///DYSCHROMIA OTHER 03/23/2007 03/03/2012 ACTINIC KERATOSIS (Premalignant AK) 03/08/2007 07/26/2018 Benign neoplasm of skin of t runk, except scrotum 03/08/2007 03/03/2012 FACE////BENIGN ARAVIND SKIN FACE NEC 03/08/2007 03/03/2012 NEVI///BENIGN ARAVIND SCALP/SKIN NECK 03/08/2007 03/03/2012 NEVI///BENIGN ARAVIND SKIN ARM 03/08/2007 0 03/03/2012 SURGICAL SCAR & FIBROSIS OF SKIN 03/08/2007 03/16/2014 ACTINIC DAMAGE//CHR SOLAR SKIN DAMAGE NOS 03/08/2007 03/03/2012 Seborrheic Keratoses 03/08/2007 015 MORILLO ANGIOMA 03/08/2007 03/16/2014 Inguinal hernia without ment ion of obstruction or gangrene, unilateral or unspecified, (not specified as recurrent) 12/27/2006 08/23/2014 Malignant melanoma of other specified sites of skin 03/03/2012 Esophagitis 07/26/2018 Urinary calculus, unspecified 08/23/2014 Overview: Renal stones documented as of this encounter (statuses as of 06/13/2023) [facility] History of Past illness Narrative* Problem Noted Date Diagnosed Date Resolved Date Shoulder impingement syndrome, right 08/03/2017 07/26/2018 Chronic cholecystitis with calculus 08/06/2016 07/26/2018 Calculus of gallbladder with out cholecystitis without obstruction 07/15/2016 01/20/2021 Surgical Scars 03/16/2014 08/23/2014 Skin tag 03/16/2014 08/23/2014 Melanocytic Nevi of trunk: c hest, back, and abdomen areas: mostly Intradermal types 03/16/2014 07/26/2018 Melanocytic Nevi of upper extremity 03/16/2014 07/26/2018 BCC (basal cell carcinoma), face: R mid upper bridge nose 06/01/2013 03/16/2014 Postinflammatory skin changes 06/01/2013 08/23/2014 Telangiectasia 12/31/2012 08/23/2014 [place] 12/31/2012 08/23/2014 Other specified disease of sebaceous glands 12/31/2012 08/23/2014 Morillo angioma 04/01/2012 08/23/2014 Dermatofibroma of right thigh 04/01/2012 08/23/2014 Melanocytic nevi of face 03/03/201204/2015 Melanocytic Nevus of upper e xtremity or shoulder 03/03/2012 03/16/2014 Solar Lentigines 03/03/2012 08/23/2014 Actinic skin damage 03/03/2012 08/23/19 Neoplasm of Uncertain Behavior(NUB) of skin 05/17/2011 03/16/2014 Personal history of other ma lignant neoplasm of skin: BCC needing Moh's Surgery x1 stage 02/20/2010 05/17/2011 03/16/2014 Rectal bleeding 11/27/2010 08/23/2014 Melanocytic Nevus of legs 08/13/2010 Open wound(s) (multiple) of unspecified site(s), without mention of complication 01/23/2010 03/03/2012 Melanocytic nevus of face 07/29/2009 Melanocytic nevus of neck 07/29/2009 Melanocytic nevus of trunk 07/16/2009 1 09/26/2017 Other acne 01/08/2009 03/03/2012 NEVUS///BENIGN ARAVIND SKIN LEG 03/23/2007 03/03/2012 SOLAR LENTIGINES///DYSCHROMIA OTHER 03/23/2007 03/03/2012 ACTINIC KERATOSIS (Premalignant AK) 03/08/2007 07/26/2018 Benign neoplasm of skin of t runk, except scrotum 03/08/2007 03/03/2012 FACE////BENIGN ARAVIND SKIN FACE NEC 03/08/2007 03/03/2012 NEVI///BENIGN ARAVIND SCALP/SKIN NECK 03/08/2007 03/03/2012 NEVI///BENIGN ARAVIND SKIN ARM 03/08/2007 0 03/03/2012 SURGICAL SCAR & FIBROSIS OF SKIN 03/08/2007 03/16/2014 ACTINIC DAMAGE//CHR SOLAR SKIN DAMAGE NOS 03/08/2007 03/03/2012 Seborrheic Keratoses 03/08/2007 015 MORILLO ANGIOMA 03/08/2007 03/16/2014 Inguinal hernia without ment ion of obstruction or gangrene, unilateral or unspecified, (not specified as recurrent) 12/27/2006 08/23/2014 Malignant melanoma of other specified sites of skin 03/03/2012 Esophagitis 07/26/2018 Urinary calculus, unspecified 08/23/2014 Overview: Renal stones documented as of this encounter (statuses as of 06/22/2023) [facility] History of Past illness Narrative* Problem Noted Date Diagnosed Date Resolved Date Shoulder impingement syndrome, right 08/03/2017 07/26/2018 Chronic cholecystitis with calculus 08/06/2016 07/26/2018 Calculus of gallbladder with out cholecystitis without obstruction 07/15/2016 01/20/2021 Surgical Scars 03/16/2014 08/23/2014 Skin tag 03/16/2014 08/23/2014 Melanocytic Nevi of trunk: c hest, back, and abdomen areas: mostly Intradermal types 03/16/2014 07/26/2018 Melanocytic Nevi of upper extremity 03/16/2014 07/26/2018 BCC (basal cell carcinoma), face: R mid upper bridge nose 06/01/2013 03/16/2014 Postinflammatory skin changes 06/01/2013 08/23/2014 Telangiectasia 12/31/2012 08/23/2014 [place] 12/31/2012 08/23/2014 Other specified disease of sebaceous glands 12/31/2012 08/23/2014 Morillo angioma 04/01/2012 08/23/2014 Dermatofibroma of right thigh 04/01/2012 08/23/2014 Melanocytic nevi of face 03/03/201204/2015 Melanocytic Nevus of upper e xtremity or shoulder 03/03/2012 03/16/2014 Solar Lentigines 03/03/2012 08/23/2014 Actinic skin damage 03/03/2012 08/23/19 15 Neoplasm of Uncertain Behavior(NUB) of skin 05/17/2011 03/16/2014 Personal history of other ma lignant neoplasm of skin: BCC needing Moh's Surgery x1 stage 02/20/2010 05/17/2011 03/16/2014 Rectal bleeding 11/27/2010 08/23/2014 Melanocytic Nevus of legs 08/13/2010 Open wound(s) (multiple) of unspecified site(s), without mention of complication 01/23/2010 03/03/2012 Melanocytic nevus of face 07/29/2009 Melanocytic nevus of neck 07/29/2009 Melanocytic nevus of trunk 07/16/2009 1 09/26/2017 Other acne 01/08/2009 03/03/2012 NEVUS///BENIGN ARAVIND SKIN LEG 03/23/2007 03/03/2012 SOLAR LENTIGINES///DYSCHROMIA OTHER 03/23/2007 03/03/2012 ACTINIC KERATOSIS (Premalignant AK) 03/08/2007 07/26/2018 Benign neoplasm of skin of t runk, except scrotum 03/08/2007 03/03/2012 FACE////BENIGN ARAVIND SKIN FACE NEC 03/08/2007 03/03/2012 NEVI///BENIGN ARAVIND SCALP/SKIN NECK 03/08/2007 03/03/2012 NEVI///BENIGN ARAVIND SKIN ARM 03/08/2007 0 03/03/2012 SURGICAL SCAR & FIBROSIS OF SKIN 03/08/2007 03/16/2014 ACTINIC DAMAGE//CHR SOLAR SKIN DAMAGE NOS 03/08/2007 03/03/2012 Seborrheic Keratoses 03/08/2007 015 MORILLO ANGIOMA 03/08/2007 03/16/2014 Inguinal hernia without ment ion of obstruction or gangrene, unilateral or unspecified, (not specified as recurrent) 12/27/2006 08/23/2014 Malignant melanoma of other specified sites of skin 03/03/2012 Esophagitis 07/26/2018 Urinary calculus, unspecified 08/23/2014 Overview: Renal stones documented as of this encounter (statuses as of 07/21/2023) [facility] Diagnosis SVT (supraventricular tachycardia) (HCC) Other specified cardiac dysrhythmias documented in this encounter [facility] note* Diagnosis BPH with elevated PSA- Primary Hypertrophy of prostate without urinary obstruction and other lower urinary tract symptoms (LUTS) Impaired fasting glucose Vitamin D deficiency Unspecified vitamin D deficiency Medicare annual wellness visit, subsequent Routine general medical examination at a health care facility Encounter for lipid screening for cardiovascular disease Screening for lipoid disorders documented in this encounter [facility] note* Diagnosis Medicare annual wellness visit, subsequent- Primary Routine general medical examination at a health care facility BPH with elevated PSA Hypertrophy of prostate without urinary obstruction and other lower urinary tract symptoms (LUTS) Impaired fasting glucose Benign prostatic hyperplasia with urinary obstruction SVT (supraventricular tachycardia) (HCC) Other specified cardiac dysrhythmias Thoracic aortic aneurysm without rupture, unspecified part Idiopathic peripheral neuropathy Unspecified hereditary and idiopathic peripheral neuropathy Mild intermittent asthma, uncomplicated Unspecified asthma Advanced care planning/counseling discussion Other specified counseling documented in this encounter [facility] note* Diagnosis Right lateral epicondylitis- Primary Lateral epicondylitis of elbow documented in this encounter [facility] note* Diagnosis Right lateral epicondylitis Lateral epicondylitis of elbow documented in this encounter [facility] note* Diagnosis Right lateral epicondylitis- Primary Lateral epicondylitis of elbow documented in this encounter [facility] note* Diagnosis Right lateral epicondylitis- Primary Lateral epicondylitis of elbow documented in this encounter [facility] note* Diagnosis Right lateral epicondylitis- Primary Lateral epicondylitis of elbow documented in this encounter [facility] note* Diagnosis Right lateral epicondylitis- Primary Lateral epicondylitis of elbow documented in this encounter [facility] note* Diagnosis Idiopathic peripheral neuropathy- Primary Unspecified hereditary and idiopathic peripheral neuropathy documented in this encounter [facility] note* Diagnosis Idiopathic peripheral neuropathy- Primary Unspecified hereditary and idiopathic peripheral neuropathy documented in this encounter [facility] note* Diagnosis Idiopathic peripheral neuropathy- Primary Unspecified hereditary and idiopathic peripheral neuropathy documented in this encounter [facility] Summary Purpose Family History No Family History Records FoundNo Family History Records FoundNo Family History Records FoundNo Family History Records FoundNo Family History Records Found Advance Directives No Advanced Directives Records FoundDocuments on File Type Date Recorded Patient Tobacco Hanger Expl anation Advance Directive(s) Advance Directive(s) 07/27/2016 8:08 AM Advance Directive(s) 07/27/2016 7:55 AM Advance Directive(s) 07/23/2016 9:16 AM Documents on File Type Date Recorded Patient Tobacco Hanger Expl anation Advance Directive(s) 07/27/2016 7:55 AM Documents on File Type Date Recorded Patient Tobacco Hanger Expl anation Advance Directive(s) 07/27/2016 7:55 AM Reason for Referral Specialty Diagnoses / Procedures Referred By Gena yuen Referred To Contact [facility] Diagnoses Right lateral epicondylitis Procedures CONSULT TO PHYSICAL THERAPY PHYSICAL THERAPY EVALUATION HIGH COMPLEX 45 MINS Mekhi Vernon PA-C [address] [place] [address] [facility] [address] [place] [address] Referral ID Status Reason Start Date Expiration Date Visits Requested Visits Authorized [id number] Authorized Auto-Generat ed Referral 10/20/2022 08/14/2023 99 99 Specialty Diagnoses / Procedures Referred By Contac t Referred To Contact [facility] Diagnoses Right lateral epicondylitis Procedures PT REHAB FOLLOW UP ORDER THERAPEUTIC EXERCISES RE, EA 15 MIN. Pan Pool, PT [address] [place] [address] [facility] [id number] [place] [address] Referral ID Status Reason Start Date Expiration Date Visits Requested Visits Authorized [id number] Pending Review PCP Requested Referral Auto-Generate d Referral 10/28/2022 01/26/2023 1 1 Referral ID Status Reason Start Date Expiration Date Visits Requested Visits Authorized [id number] Pending Review PCP Requested Referral Auto-Generate d Referral 11/26/2022 02/24/2023 1 1 Additional Source Comments (unrecognized sect ion and content) No Status Records FoundNo Status Records FoundNo Status Records FoundNo Status Records FoundNo Status Records Found INFORMATION SOURCE (unrecogn ized section and content) DATE CREATED AUTHOR AUTHOR'S ORGANIZ ATION 02/06/2018 [facility] DATE CREATED AUTHOR AUTHOR'S ORGANIZ ATION 11/22/2020 [facility] DATE CREATED AUTHOR AUTHOR'S ORGANIZ ATION 04/26/2021 [facility] DATE CREATED AUTHOR AUTHOR'S ORGANIZ ATION 08/21/2023 [facility] Source Comments (unrecognize d section and content) In the event this informatio n is protected by the Federal Confidentiality of Alcohol and Drug Abuse Patient Records regulations: The Federal rules restrict any use of the information to criminally investigate or prosecute any alcohol or drug abuse patient.[facility] event this information is protected by the Federal Confidentiality of Alcohol and Drug Abuse Patient Records regulations: The Federal rules restrict any use of the information to criminally investigate or prosecute any alcohol or drug abuse patient.[facility] event this information is protected by the Federal Confidentiality of Alcohol and Drug Abuse Patient Records regulations: The Federal rules restrict any use of the information to criminally investigate or prosecute any alcohol or drug abuse patient.[facility] event this information is protected by the Federal Confidentiality of Alcohol and Drug Abuse Patient Records regulations: The Federal rules restrict any use of the information to criminally investigate or prosecute any alcohol or drug abuse patient.[facility] event this information is protected by the Federal Confidentiality of Alcohol and Drug Abuse Patient Records regulations: The Federal rules restrict any use of the information to criminally investigate or prosecute any alcohol or drug abuse patient.[facility] event this information is protected by the Federal Confidentiality of Alcohol and Drug Abuse Patient Records regulations: The Federal rules restrict any use of the information to criminally investigate or prosecute any alcohol or drug abuse patient.[facility] the event this information is protected by the Federal Confidentiality of Alcohol and Drug Abuse Patient Records regulations: The Federal rules restrict any use of the information to criminally investigate or prosecute any alcohol or drug abuse patient.[facility] event this information is protected by the Federal Confidentiality of Alcohol and Drug Abuse Patient Records regulations: The Federal rules restrict any use of the information to criminally investigate or prosecute any alcohol or drug abuse patient.[facility] the event this information is protected by the Federal Confidentiality of Alcohol and Drug Abuse Patient Records regulations: The Federal rules restrict any use of the information to criminally investigate or prosecute any alcohol or drug abuse patient.[facility] the event this information is protected by the Federal Confidentiality of Alcohol and Drug Abuse Patient Records regulations: The Federal rules restrict any use of the information to criminally investigate or prosecute any alcohol or drug abuse patient.[facility] event this information is protected by the Federal Confidentiality of Alcohol and Drug Abuse Patient Records regulations: The Federal rules restrict any use of the information to criminally investigate or prosecute any alcohol or drug abuse patient.[facility] event this information is protected by the Federal Confidentiality of Alcohol and Drug Abuse Patient Records regulations: The Federal rules restrict any use of the information to criminally investigate or prosecute any alcohol or drug abuse patient.[facility] event this information is protected by the Federal Confidentiality of Alcohol and Drug Abuse Patient Records regulations: The Federal rules restrict any use of the information to criminally investigate or prosecute any alcohol or drug abuse patient.[facility] event this information is protected by the Federal Confidentiality of Alcohol and Drug Abuse Patient Records regulations: The Federal rules restrict any use of the information to criminally investigate or prosecute any alcohol or drug abuse patient.[facility] event this information is protected by the Federal Confidentiality of Alcohol and Drug Abuse Patient Records regulations: The Federal rules restrict any use of the information to criminally investigate or prosecute any alcohol or drug abuse patient.[facility] event this information is protected by the Federal Confidentiality of Alcohol and Drug Abuse Patient Records regulations: The Federal rules restrict any use of the information to criminally investigate or prosecute any alcohol or drug abuse patient.[facility] event this information is protected by the Federal Confidentiality of Alcohol and Drug Abuse Patient Records regulations: The Federal rules restrict any use of the information to criminally investigate or prosecute any alcohol or drug abuse patient.[facility] event this information is protected by the Federal Confidentiality of Alcohol and Drug Abuse Patient Records regulations: The Federal rules restrict any use of the information to criminally investigate or prosecute any alcohol or drug abuse patient.[facility] event this information is protected by the Federal Confidentiality of Alcohol and Drug Abuse Patient Records regulations: The Federal rules restrict any use of the information to criminally investigate or prosecute any alcohol or drug abuse patient.[facility] the event this information is protected by the Federal Confidentiality of Alcohol and Drug Abuse Patient Records regulations: The Federal rules restrict any use of the information to criminally investigate or prosecute any alcohol or drug abuse patient.[facility] event this information is protected by the Federal Confidentiality of Alcohol and Drug Abuse Patient Records regulations: The Federal rules restrict any use of the information to criminally investigate or prosecute any alcohol or drug abuse patient.[facility] event this information is protected by the Federal Confidentiality of Alcohol and Drug Abuse Patient Records regulations: The Federal rules restrict any use of the information to criminally investigate or prosecute any alcohol or drug abuse patient.[facility] event this information is protected by the Federal Confidentiality of Alcohol and Drug Abuse Patient Records regulations: The Federal rules restrict any use of the information to criminally investigate or prosecute any alcohol or drug abuse patient.[facility] Reason for Visit (unrecogniz ed section and content) Specialty Diagnoses / Procedures Referred By Gena yuen Referred To Contact [facility] Diagnoses Right lateral epicondylitis Procedures CONSULT TO PHYSICAL THERAPY PHYSICAL THERAPY EVALUATION HIGH COMPLEX 45 MINS Mekhi Vernon PA-C [address] [place] [address] [facility] [address] [place] [address] Referral ID Status Reason Start Date Expiration Date Visits Requested Visits Authorized [id number] Authorized Auto-Generat ed Referral 10/20/2022 08/14/2023 99 99 Reason Comments PT Progress Note Specialty Diagnoses / Procedures Referred By Gena t Referred To Contact [facility] Diagnoses Right lateral epicondylitis Procedures CONSULT TO PHYSICAL THERAPY PHYSICAL THERAPY EVALUATION HIGH COMPLEX 45 MINS Mekhi Vernon PA-C [address] [place] [address] [facility] [address] [place] [address] Reason Comments Forms Reason Comments Medicare Wellness Exam Reason Comments Pain (Elbow Pain) R elbow x 6 weeks; n o known injury Reason Comments Consult Reason Comments PT Eval Reason Comments Physical Therapy Reason Comments Outside Cardiology Reason Comments ext document Lab and CTA Reason Comments PT Progress Note Reason Comments Outside Urology Care Teams (unrecognized sec tion and content) Pattern Wheel Maker Relationship Specialty Start Date End Date Sherry Novak MD [address] [place] [address] PCP - General Family Practice 01/20/21 Pattern Wheel Maker Relationship Specialty Start Date End Date Sherry Novak MD [address] [place] [address] PCP - General Family Practice 01/20/21 Pattern Wheel Maker Relationship Specialty Start Date End Date Sherry Novak MD [address] [place] [address] PCP - General Family Medicine 01/20/21 Pattern Wheel Maker Relationship Specialty Start Date End Date Sherry Novak MD [address] [place] [address] PCP - General Family Medicine 01/20/21 Pattern Wheel Maker Relationship Specialty Start Date End Date Sherry Novak MD [address] [place] [address] PCP - General Family Medicine 01/20/21 Pattern Wheel Maker Relationship Specialty Start Date End Date Sherry Novak MD [address] [place] [address] PCP - General Family Medicine 01/20/21 Pattern Wheel Maker Relationship Specialty Start Date End Date Sherry Novak MD [address] [place] [address] PCP - General Family Medicine 01/20/21 Pattern Wheel Maker Relationship Specialty Start Date End Date Sherry Novak MD [address] [place] [address] PCP - General Family Medicine 01/20/21 Pattern Wheel Maker Relationship Specialty Start Date End Date Sherry Novak MD [address] [place] [address] PCP - General Family Medicine 01/20/21 Pattern Wheel Maker Relationship Specialty Start Date End Date Sherry Novak MD [address] [place] [address] PCP - General Family Medicine 01/20/21 Pattern Wheel Maker Relationship Specialty Start Date End Date Sherry Novak MD [address] [place] [address] PCP - General Family Medicine 01/20/21 Pattern Wheel Maker Relationship Specialty Start Date End Date Sherry Novak MD [address] [place] [address] PCP - General Family Medicine 01/20/21 Pattern Wheel Maker Relationship Specialty Start Date End Date Sherry Novak MD [address] [place] [address] PCP - General Family Medicine 01/20/21 Sherry Novak MD [address] [place] [address] [place] [address] Referring 03/25/23 Sherry Wright MD [address] [place] [address] [place] [phone] Referring Orthotics & Prosthetics 03/25/23 Pattern Wheel Maker Relationship Specialty Start Date End Date Sherry Novak MD [address] [place] [address] PCP - General Family Medicine 01/20/21 Sherry Novak MD [address] [place], [place] [phone] Referring 03/25/23 Sherry Wright MD [address] [place] [phone] Referring Orthotics & Prosthetics 03/25/23 Pattern Wheel Maker Relationship Specialty Start Date End Date Sherry Novak MD [address] [place] [address] PCP - General Family Medicine 01/20/21 Sherry Novak MD [address] [place] [address] [place], [place] [phone] Referring 03/25/23 Sherry Wright MD [address] [place] [phone] Referring Orthotics & Prosthetics 03/25/23 Pattern Wheel Maker Relationship Specialty Start Date End Date Sherry Novak MD [address] [place] [address] PCP - General Family Medicine 01/20/21 Sherry Novak MD [address] [place] [address] Referring 03/25/23 Sherry Wright MD [address] [place] [address] Referring Orthotics & Prosthetics 03/25/23 Pattern Wheel Maker Relationship Specialty Start Date End Date Sherry Novak MD [address] [facility] [address] PCP - General Family Medicine 01/20/21 Sherry Novak MD [address] [place] [address] [place] [address] Referring 03/25/23 Sherry Wright MD [address] [place] [address] [place] [phone] Referring Orthotics & Prosthetics 03/25/23 Pattern Wheel Maker Relationship Specialty Start Date End Date Sherry Novak MD [address] [place] [address] PCP - General Family Medicine 01/20/21 Sherry Novak MD [address] [place] [address] [place] [address] Referring 03/25/23 Sherry Wright MD [address] [facility] [place] [phone] Referring Orthotics & Prosthetics 03/25/23 FOR RECORDS PERTAINING TO PATIENTS WHO ARE OR HAVE BEEN ENROLLED IN A CHEMICAL DEPENDENCY/SUBSTANCEABUSE PROGRAM, SOME INFORMATION MAY BE OMITTED. This clinical summary was aggregated from multiple sources. Caution should be exercised in using it in the provision of clinical care. This summary normalizes information from multiple sources, and as a consequence, information in this document may materially change the coding, format and clinical context of patient data. In addition, data may be omitted in some cases. CLINICAL DECISIONS SHOULD BE BASED ON THE PRIMARY CLINICAL RECORDS. [facility] [employer] [facility]. provides no warranty or guarantee of the accuracy or completeness of information in this document.
[2023-08-24] MEDS: Lactated Ringers 1,000 ML 15 ML IV (07:34)
--- NOTE | 2023-08-24 08:28 | PCM.HP.STD ---
HPI - General General Date of Service: 08/24/23 Chief Complaint: BPH with obstruction HPI Narrative BRIDGETTE MONGE, is a 78 M who presents for a transurethral resection of the prostate [facility] Medical History Alcohol use BPH (benign prostatic hyperplasia) Cardiology follow-up encounter Chronic cough Difficulty swallowing Diverticulosis Esophagitis Heartburn Hemorrhoids History of echocardiogram History of irregular heartbeat History of stress test Hypertension Injury of head and neck Malignant neoplasm of skin Neuropathy Non-smoker Nonrheumatic mitral (valve) prolapse Paroxysmal supraventricular tachycardia Peripheral neuropathy Renal stones Shortness of breath on exertion Thoracic aortic aneurysm (TAA) Wears hearing aid Home Medications calcium polycarbophil 625 mg tablet (FiberCon) 1,250 mg PO DAILY 09/03/19 [History Last Taken 08/23/23] cholecalciferol (vitamin D3) 125 mcg (5,000 unit) disintegrating tablet 5,000 unit PO DAILY 09/05/19 [History Last Taken 08/23/23] acebutolol 200 mg capsule 200 mg PO .QOHS 02/10/21 [History Last Taken 08/23/23] cyanocobalamin (vitamin B-12) 500 mcg tablet (Vitamin B-12) 500 mcg PO DAILY 02/10/21 [History Last Taken 08/23/23] finasteride 5 mg tablet 5 mg PO QHS 02/10/21 [History Last Taken 08/23/23] tadalafil 20 mg tablet 20 mg PO ONCE PRN sexual activity 02/25/23 [History Last Taken Unknown] doxazosin 2 mg tablet 2 mg PO QHS 08/05/23 [History Last Taken 08/23/23] doxazosin 4 mg tablet 4 mg PO QHS 08/05/23 [History Last Taken 08/23/23] guaifenesin 600 mg tablet, extended release 12 hr (Mucinex) 600 mg PO BID PRN congestion 08/05/23 [History Last Taken 08/10/23] Allergy/AdvReac Type Severity Reaction Status Date / Time erythromycin base Allergy Unknown Verified 08/24/23 07:28 Penicillins Allergy Unknown Verified 08/24/23 07:28 Sulfa (Sulfonamide Allergy Unknown Verified 08/24/23 07:28 Antibiotics) iodine AdvReac SKIN Verified 08/24/23 07:28 IRRITATION Family History Father Hypertension Heart disease Mother Hypertension Sister Hypertension Sister Hypertension Surgical History H/O local excision of skin lesion History of cataract extraction History of cholecystectomy History of colonoscopy History of esophagogastroduodenoscopy (EGD) History of hemorrhoidectomy History of herniorrhaphy History of radiofrequency ablation procedure for cardiac arrhythmia (09/2013) Social History Smoking Status: Never smoker alcohol intake: current alcohol intake frequency: other Alcohol type: wine caffeine: Yes Type: coffee Number of servings: 2 eating out: other Vital Signs Vital Signs Vital Signs: 08/24/23 07:30 08/24/23 07:30 Temperature 97.9 F Temperature Source Temporal Pulse Rate 49 L Respiratory Rate 17 Respiratory Pattern Normal Blood Pressure 115/67 Blood Pressure Mean 83 Blood Pressure Source Monitor Blood Pressure Position Semi-Fowlers Blood Pressure Location Right Arm Pulse Ox 95 Oxygen Delivery Method Room Air Weight Weight: 87 kg Body Mass Index (BMI) 25.9 Results Lab / Micro Data 08/10/23 09:04 08/10/23 09:04
--- NOTE | 2023-08-24 08:55 | PROS_PTH ---
PATHOLOGY RESULTS PATIENT: BRIDGETTE MONGE LOC: MS3 U#:[id number] AGE/SX: 78/M ROOM: WA319 RE08/24/[address]: Dr. Chandan Mckinnon MD : 1945 BED: 1 DIS: 08/25/2023 SPEC #: [id number] RECD: 08/24/23 14:17 STATUS: MANNY LEVY #: [id number] MEJIA: 08/24/23 08:[address]: Chandan Mckinnon DEPT: SURGICAL PATHOLOGY RECD BY: Sara Solano ENTERED: 08/25/23 07:11 SP TYPE: TURP OTHR DR: Dr. Gonzalo Silvestre MD Tissues: Prostate, NOS Procedures: Surgery Specimen Level IV HEADER OPERATION: Transurethral resection of prostate with Olympus PRE-OP DIAGNOSIS: BPH with obstruction TISSUE SUBMITTED: Prostate tissue MICROSCOPIC DIAGNOSIS Prostate, transurethral resection: Benign nodular hyperplasia, glandular and stromal types. Chronic inflammation. AM:anais 08/26/2023 MICROSCOPIC DESCRIPTION Slides are reviewed. GROSS DESCRIPTION Received is one container labeled with the patient's name and designated prostate tissue. The specimen consists of multiple irregular fragments of pink-abad, rubbery, soft tissue that in aggregate weigh 26.8 gm and measure in aggregate 7.0 x 7.0 x 2.5 cm. Criminal Intelligence Analyst tissue is submitted in ten cassettes. / SJ:anais 08/25/2023 TC:3 CPT: 75739
--- NOTE | 2023-08-24 08:55 | DCINST_ITS ---
Discharge Instructions Diet Discharge Diet: No restrictions Activity Discharge Activity: Return to Normal Activity and May Not Drive (while taking narcotic pain medications.) Dressing / Incision Call your doctor if you observe: Fever of 101 or Higher Follow Up Care Please Follow Up With: Chandan Mckinnon MD When: Call [phone] for an appointment Test Results: Test results from this visit will be discussed in further detail at your follow- up appointment, if applicable. Discharge Plan Admission Attending Provider: Chandan Mckinnon Primary Care Provider: Gonzalo Silvestre Discharge Orders/Prescriptions Prescriptions: No Action cholecalciferol (vitamin D3) 5,000 unit tablet,disintegrating 5,000 unit PO DAILY acebutolol 200 mg capsule 200 mg PO .QOHS calcium polycarbophil [FiberCon] 625 mg tablet 1,250 mg PO DAILY finasteride 5 mg tablet 5 mg PO QHS Patient Comments: take 1 tablet by mouth once daily cyanocobalamin (vitamin B-12) [Vitamin B-12] 500 mcg tablet 500 mcg PO DAILY tadalafil 20 mg tablet 20 mg PO ONCE PRN (Reason: sexual activity) Patient Comments: take 1 tablet by mouth PRIOR TO INTERCOURSE. DO NOT USE MORE OFTEN THAN EVERY 3 DAYS guaifenesin [Mucinex] 600 mg tablet extended release 12hr 600 mg PO BID PRN (Reason: congestion) doxazosin 4 mg tablet 4 mg PO QHS Rx Instructions: Take with 2 mg tablet to equal 6 mgs daily doxazosin 2 mg tablet 2 mg PO QHS Rx Instructions: Take with 4 mg tablet to equal 6 mgs daily. Other Ambulatory Orders: 12 Lead EKG (Routine) Timeframe: [id number] Location: None Selected Ordered By: Dr. Jarod Casper Referrals / Follow Up: Gonzalo Silvestre MD [Primary Care Provider] - Disposition Disposition (needs filled in before D/C Order can be placed): Home, Self Care
[2023-08-24] MEDS: Cefazolin 2 GM in 0.9% Normal Saline (100mL Bag) 100 ML IV (08:58)
--- NOTE | 2023-08-24 10:34 | PCM.OPRPT ---
Report of Operation Date of Procedure: 08/24/23 Pre-Operative Diagnosis: bph with obstruction Post-Operative Diagnosis: same Surgery/Procedure Performed:: Transurethral resection of the prostate Description of Surgical Findings:: In the preoperative setting I discussed with the patient how the surgery would be done with expect afterwards. We discussed how a prostate resection is done and we discussed the risk of the surgery including, bleeding, infection, retrograde ejaculation, changes with ejaculation or intercourse,. We discussed the possibility that the resection of the prostate may not alleviate his urinary symptoms. We discussed the small risk of developing scar tissue along the urethral channel and strictures. We also discussed the chance of the prostate could grow back and he may need further surgery or treatment in the future for prostate problems. Patient was taken back to the operating room, timeout procedure was performed, he was identified and marked and placed on the operating room table. He underwent general anesthesia. He was placed in dorsolithotomy position. Penis and testicles were prepped and draped in usual sterile fashion. Went into the bladder using the visual obturator with a resectoscope. Once inside the bladder identified the right and left ureteral orifice. I then identified the prostate and the anatomy of the prostate. I marked out the area of the sphincter and the verumontanum was identified. I then proceeded with the prostate resection first resected the median lobe. And then resected the right lobe of the prostate. Then to resect the left lobe of the prostate. I then resected the apical tissue of the prostate. This was a complete resection of all obstructive tissue to improve voiding and relieve obstruction. I then made sure that there was no injury to the sphincter or the verumontanum was still intact. At the end of the resection all the chips were Ellik out of the bladder. I then identified the left and right ureteral orifice and these were confirmed to be in good position and effluxing and not injured. The resectoscope was removed, a 22 [place] catheter was placed into the bladder on continuous irrigation. And the urine was fairly light pink color and draining normally. He was taken back to the PACU in good condition. Surgeon: Chandan Mckinnon Type of Anesthesia: General Drains: [address] Estimated Blood Loss (mL): 10 Admit VTE Documentation VTE Present on Admission: No VTE Mechan Device Prophylaxis: SCD's VTE Pharm Prophylaxis ordered?: No
[2023-08-24] MEDS: Lactated Ringers 1,000 ML 125 ML IV ×2 (15:52→21:28)
[2023-08-24] MEDS: Ciprofloxacin 400 MG/200 ML BAG 200 MG IV (21:28)
[2023-08-24] MEDS: Finasteride 5 MG Tablet PO (21:29)
[2023-08-24] MEDS: Doxazosin 4 MG Tablet 6 MG PO (21:29)
[2023-08-24] MEDS: Docusate Sodium 100 MG Capsule 200 MG PO (21:29)
[2023-08-25 03:30] VITALS: BP 132/73; PULSE 62; RESP 16; TEMP 36.5; O2SAT 95; BMI 26.0
[2023-08-25] MEDS: Lactated Ringers 1,000 ML 125 ML IV (06:31)
[2023-08-25 06:50] VITALS: BMI 26.0
--- NOTE | 2023-08-25 07:40 | PCM.PN.GU ---
Subjective Subjective Status post transurethral resection of the prostate, urine looks clear off irrigation we can remove the catheter and patient can go home today after he urinates Objective Data Objective Data Vital Signs: Vital Signs Temp Pulse Resp BP Pulse Ox O2 Del Method 97.7 F L 62 16 132/73 H 95 Room Air 08/25/23 03:30 08/25/23 03:30 08/25/23 03:30 08/25/23 03:30 08/25/23 03:30 08/25/23 03:30 Oxygen Delivery Method Room Air Weight: 87 kg Body Mass Index (BMI) 25.9 Intake & Output: Intake and Output for Last 24 Hours 08/23/23 08/24/23 08/25/23 23:59 23:59 23:59 Intake Total 5860 / 6160 1300 / 1300 Output Total 93495 / 36795 3800 / 3800 Balance -7385 / -01694 -2500 / -2500 Lab / Micro Data 08/10/23 09:04 08/10/23 09:04
[2023-08-25 07:50] VITALS: BP 137/79; PULSE 53; RESP 15; TEMP 36.6; O2SAT 97
[2023-08-25] MEDS: Docusate Sodium 100 MG Capsule 200 MG PO (08:01)
[2023-08-25] MEDS: Ciprofloxacin 400 MG/200 ML BAG 200 MG IV (09:36)
--- NOTE | 2023-08-25 09:50 | CASEMGMT ---
Pt states he feels safe and comfortable DC home today via his . Pt Angie was taken out. Pt denies the need for additional therapy post DC. Denies further questions or concerns regarding DC.
--- NOTE | 2023-08-25 11:20 | PHA.DC.MC.R ---
Pharmacy [facility] has performed discharge medication reconciliation and counseling for this patient. 1. CIPROFLOXACIN 500MG PO BID X 7 DAYS The patient's discharge medication list was reviewed for discrepancies and discrepancies were resolved. The patient was counseled on the following discharge medications and changes in medications for homegoing were reviewed. The Reason for Use, instructions for use, and potential side effects were reviewed for all new medications. The patient's questions regarding all of their medications were answered. The patient was able to verbally demonstrate an understanding of their discharge medications. Medications at Discharge Home Medications calcium polycarbophil 625 mg tablet (FiberCon) 1,250 mg PO DAILY 09/03/19 cholecalciferol (vitamin D3) 125 mcg (5,000 unit) disintegrating tablet 5,000 unit PO DAILY 09/05/19 acebutolol 200 mg capsule 200 mg PO .QOHS 02/10/21 cyanocobalamin (vitamin B-12) 500 mcg tablet (Vitamin B-12) 500 mcg PO DAILY 02/10/21 finasteride 5 mg tablet 5 mg PO QHS 02/10/21 tadalafil 20 mg tablet 20 mg PO ONCE PRN sexual activity 02/25/23 doxazosin 2 mg tablet 2 mg PO QHS 08/05/23 doxazosin 4 mg tablet 4 mg PO QHS 08/05/23 guaifenesin 600 mg tablet, extended release 12 hr (Mucinex) 600 mg PO BID PRN congestion 08/05/23 ciprofloxacin HCl 500 mg tablet (Cipro) 500 mg PO BID #14 tabs 08/24/23
== END 2023-08-25 12:09 | disposition home or self-care (01) ==
LOC: SDC 14:05 → MS3 14:05
PROVIDERS: Anesthesiology; Admitting Provider Urology; PCP Family Medicine; Referring Provider Urology; Visit Provider Urology
PROC: (CPT 52601; principal; 2023-08-24 08:45)
DX: N40.1 Benign prostatic hyperplasia with lower urinary tract symptoms (principal); N13.8 Other obstructive and reflux uropathy; Z79.899 Other long term (current) drug therapy; I47.19 Other supraventricular tachycardia; I10 Essential (primary) hypertension; G62.9 Polyneuropathy, unspecified; R13.10 Dysphagia, unspecified
CPT/HCPCS: 52601; 00914; 36415; 80048; 85027; 88305; 93005; 96361; 96365; 96366; 99221; J7120; G0378; J0744; J2405

== ENCOUNTER → 2023-10-31 | Outpatient (CLI) | payer MEDICARE, SELFPAY ==
--- NOTE | 2023-10-31 13:22 | RAD_ITS ---
STUDY: X-RAY CHEST REASON FOR EXAM: Male, 78 years old. Shortness of Breath/ Dyspnea on Exertion. TECHNIQUE: Frontal and lateral views of the chest. COMPARISON: 12/14/2012 FINDINGS: Stable mild hyperinflation. There is no demonstrated pleural abnormality. Cardiomegaly unchanged. Normal mediastinum and brianda. Prominent central pulmonary arteries, unaltered. Aortic tortuosity with calcification unchanged. Normal visualized thoracic spine. Normal visualized ribs, clavicles, and shoulders. No abnormality of the visualized soft tissue structures of the upper abdomen. RAD/Chest PA and Lateral IMPRESSION: Stable cardiomegaly with hyperinflation. No active or acute cardiopulmonary disease. Electronically Signed: Dat Estes MD at 12:01 EDT ,
[2023-10-31 13:37] LABS: Absolute Lymphocyte Count 1.26 X10^3/uL (0.83-4.51); Absolute Neutrophil Count 2.8 X10^3/uL (2.0-7.7); Basophil# 0.04 X10^3/uL; Basophil% 0.9 % (0-1); Eosinophil# 0.12 X10^3/uL; Eosinophils% 2.6 % (0-5); Hematocrit 43.7 % (40-54); Hemoglobin 14.8 g/dL (13.0-16.5); Lymphocyte # 1.26 X10^3/ul (0.83-4.51); Lymphocyte % 26.9 % (19-41); Mean Corp Hgb Conc 33.9 g/dL (32-36); Mean Corpuscular Hgb 32.2 pg (27.0-32.0); Mean Platelet Vol. 11.3 fl (6.2-12.0); Monocyte# 0.49 X10^3/uL; Monocyte% 10.4 % (0-10); NRBC Flagged by Analyzer 0 % (0-5); Neutrophil # 2.77 X10^3/uL (2.7-7.7); Platelet Count 164 K/mm3 (150-450); RBC Distribution Width CV 11.9 % (11.6-14.6); RBC Distribution Width SD 40.9 fl (35.1-43.9); White Blood Count 4.7 K/mm3 (4.4-11.0)
[2023-10-31 14:00] LABS: BNP,B-Type NATRIURETIC PEPTIDE 83.4 pg/mL (0-100)
[2023-10-31 14:09] LABS: ALB/GLOB Ratio 1.1 RATIO (0.9-2.4); AST(SGOT) 22 U/L (15-37); Alanine Aminotransfer ALT/SGPT 24 U/L (16-61); Albumin, Serum 3.5 g/dL (3.2-5.0); Alkaline Phosphatase 75 U/L (45-117); Anion Gap 3 (5-15); BUN 15 mg/dL (7-18); BUN/Creat Ratio 12.6 RATIO (10-20); Calcium,Total 8.7 mg/dL (8.5-10.1); Chloride 109 mmol/L (98-107); Creatinine, Serum 1.19 mg/dL (0.70-1.30); EST Glomerular Filtration Rate 63 mL/min (>60); Est Glom Filt Rate - Afr Amer 76 mL/min (>60); Globulin 3.2 g/dL (2.2-4.2); Glucose 108 mg/dL (74-106); Magnesium 2.2 mg/dL (1.6-2.6); Potassium 4.4 mmol/L (3.5-5.1); Protein, Total 6.7 g/dL (6.4-8.2); Sodium Level 139 mmol/L (136-145); T4 Total, Thyroxin 7.6 ug/dL (4.5-12.1); Thyroid Stim Hormone (TSH) 2.46 uIU/mL (0.358-3.74)
== END | disposition home or self-care (01) ==
LOC: LAB 13:06
PROVIDERS: PCP Family Medicine; Referring Provider Internal Medicine Cardiovascular Disease; Visit Provider Internal Medicine Cardiovascular Disease
DX: R06.09 Other forms of dyspnea (principal); I71.20 Thoracic aortic aneurysm, without rupture, unspecified; R06.02 Shortness of breath; I47.10 Supraventricular tachycardia, unspecified; I34.1 Nonrheumatic mitral (valve) prolapse
CPT/HCPCS: 36415; 71046; 80053; 83735; 83880; 84436; 84443; 85025

== ENCOUNTER → 2023-11-01 | Outpatient (CLI) | payer MEDICARE, SELFPAY | END | disposition home or self-care (01) | LOC: LABSPEC 16:16 | PROVIDERS: PCP Family Medicine; Referring Provider Urology; Visit Provider Urology | DX: R30.0 Dysuria (principal) | CPT/HCPCS: 87086 ==

== ENCOUNTER → 2023-11-02 | Outpatient (CLI) | payer MEDICARE, SELFPAY ==
--- NOTE | 2023-11-02 07:04 | CT_ITS ---
STUDY: CTA CHEST REASON FOR EXAM: Male, 78 years old. Evaluate Aneurysm for changes RADIATION DOSAGE (If Supplied By Facility): CTDIvol = ( 15.96 ) mGy, DLP = ( 500.90 ) mGycm TECHNIQUE: The examination was performed with the intravenous administration of IV 100mL Isovue-370. Post-processing of the angiographic images was performed, with multiplanar reformation and 3D reconstruction. Individualized dose optimization techniques were used for this CT. COMPARISON: Comparison is made with prior study dated May 09, 2023. FINDINGS: Normal enhancement of the main pulmonary artery and right and left pulmonary arteries. Normal enhancement of the bilateral peripheral pulmonary arteries. There is no demonstrated pulmonary embolism. There is aneurysmal dilatation of the ascending aorta. The transverse diameter of the ascending aorta measures 46 mm''s. There is no demonstrated aortic dissection. There are calcifications of the coronary arteries. Normal mediastinum. Normal hilar regions. Normal visualized trachea and bronchi. The lungs are well expanded. Normal pulmonary parenchyma. Normal pleura. Normal chest wall structures. There are degenerative changes of thoracic spine. Normal visualized upper abdomen. CT/CTA Chest W/WO Contrast IMPRESSION: Stable examination. The root of the ascending thoracic aorta measures 46 mm. Electronically Signed: Ramos Garcia MD at 9:54 EDT ,
--- NOTE | 2023-11-02 07:04 | ECHOD_ITS ---
Reason For Study: MANZANARES Procedure This was a 2D Doppler, Color Flow transthoracic echocardiogram. Exam performed in department. Left Ventricle Normal LV size. Left ventricular systolic function is normal. The estimated ejection fraction is 60 %. No regional wall motion abnormalities noted. Right Ventricle Normal RV size. Normal systolic function. Atria Normal left atrium. Normal right atrium. Mitral Valve Mild mitral valve prolapse. Mild (1+) eccentric mitral valve insufficiency. Tricuspid Valve Normal tricuspid valve. Mild (1+) tricuspid valve insufficiency. Pulmonary artery systolic pressure is 30 mmHg. Aortic Valve Normal aortic valve. Pulmonic Valve Normal pulmonic valve. Great Vessels Mild to moderately dilated aortic root. The pulmonary artery is normal size. Inferior vena cava collapse with respiration. Pericardium/Pleural No pericardial effusion. MMode/2D Measurements & Calculations LVIDd: 4.8 cm IVSd: 0.92 cm Ao root diam: 4.5 cm LVIDs: 2.7 cm LVPWd: 1.0 cm RVDd: 5.2 cm FS: 44.5 % LAV(MOD-bp): 64.7 ml LVAd ap4: 30.3 cm2 SV(MOD-sp4): 63.7 ml LAV(MOD-bp) Indexed: 31.0 ml/m2 LVLd ap4: 8.1 cm LAV(MOD-sp2): 74.7 ml EDV(MOD-sp4): 92.3 ml LAV(MOD-sp4): 55.6 ml EDV(sp4-el): 96.9 ml LVAs ap4: 15.0 cm2 LVLs ap4: 6.4 cm ESV(MOD-sp4): 28.6 ml ESV(sp4-el): 30.0 ml EF(MOD-sp4): 69.0 % EF(sp4-el): 69.0 % SV(sp4-el): 66.9 ml LA A4 area: 20.5 cm2 LA dimension(2D): 3.9 cm RA A4 area: 22.3 cm2 TAPSE: 2.8 cm Time Measurements MV dec time: 0.24 sec Doppler Measurements & Calculations MV E max simone: 68.3 cm/sec Lat Peak E' Simone: 9.2 cm/sec Med Peak E' Simone: 7.0 cm/sec MV A max simone: 49.8 cm/sec E/E' lat: 7.5 E/E' med: 9.7 MV E/A: 1.4 Ao V2 max: 117.8 cm/sec LV V1 max: 99.4 cm/sec MV dec slope: 287.3 cm/sec2 Ao max P.6 mmHg LV V1 max P.0 mmHg Ao V2 mean: 87.4 cm/sec LV V1 mean P.0 mmHg Ao mean P.3 mmHg LV V1 mean: 64.3 cm/sec Ao V2 VTI: 27.6 cm LV V1 VTI: 24.7 cm AV (velocity ratio): 0.89 PA V2 max: 79.6 cm/sec PI end-d simone: 110.4 cm/sec TR max simone: 250.5 cm/sec TR max P.1 mmHg ECHO/Echo Complete Interpretation Summary Normal LV size. Left ventricular systolic function is normal. The estimated ejection fraction is 60 %. Mild mitral valve prolapse. Mild (1+) eccentric mitral valve insufficiency. Mild to moderately dilated aortic root. Ordering Physician: Naveen Sotelo Referring Physician: Gonzalo Silvestre Performed By: Alma Sotelo, ANDRA, RVT
--- NOTE | 2023-11-02 12:59 | STRESSREP ---
Stress Test Report Pharmacologic myocardial perfusion stress test. 78-year-old male with a history of chest pain Resting EKG demonstrates sinus bradycardia with a rate of 55 bpm. Resting blood pressure is 118/78 mmHg. 0.4 mg of regadenoson was infused per usual protocol followed by rapid intravenous saline flush injection. Continuous EKG monitoring was performed. The maximum heart rate was 81 bpm which was 56% of max impacted heart rate the maximum workload was 1 metabolic equivalent. At rest there were no ST or T wave changes noted to suggest ischemia and at peak infusion nonspecific ST changes were noted which did not meet the criteria for ischemia. No clinical angina is noted. The final blood pressure was 118/74 mmHg. Myocardial perfusion protocol. 15.0 mCi of technetium 99m sestamibi was injected at rest. 0.4 mg of regadenoson was infused per usual protocol. At peak infusion 45 mCi of technetium 99m sestamibi was injected stress images were obtained stress and rest images were reconstructed and compared in the short axis vertical long and horizontal long axis. Gated images were also obtained. Perfusion SPECT analysis: Review of the stress images demonstrate normal uptake of tracer noted in all areas of the myocardium. The resting images similar demonstrated normal uptake of tracer noted in all areas of the myocardium. No areas of reversibility are noted to suggest ischemia and no previous infarct is noted. Gated SPECT analysis: The gated ejection fraction is 69%. Conclusion: Normal pharmacologic myocardial perfusion stress test. Preserved ejection fraction.
== END | disposition home or self-care (01) ==
LOC: CVS 07:02
PROVIDERS: PCP Family Medicine; Referring Provider Nurse Practitioner Family; Visit Provider Nurse Practitioner Family
DX: I71.20 Thoracic aortic aneurysm, without rupture, unspecified (principal); R06.09 Other forms of dyspnea; R06.02 Shortness of breath; I47.10 Supraventricular tachycardia, unspecified; I34.1 Nonrheumatic mitral (valve) prolapse
CPT/HCPCS: 71275; 78452; 93017; 93306; A9500; Q9967; A4216; J2785

== ENCOUNTER → 2025-05-02 | Outpatient (CLI) | payer MEDICARE, SELFPAY ==
--- NOTE | 2025-05-02 14:52 | CT_ITS ---
PROCEDURE: CTA CHEST W/WO CONTRAST 05/02/2025 REASON FOR EXAM: RE-EVALUATE ANEURYSM SIZE TECHNIQUE: Procedure Code: [id number] Modality: CT Procedure: CTA CHEST W/WO CONTRAST Multiplanar Sagittal and Coronal images were obtained. CONTRAST: Isovue 370 VOLUME: 100 mL One or more dose reduction techniques were used (e.g., Automated exposure control, adjustment of the mA and/or kV according to patient size, use of iterative reconstruction technique). RADIATION DOSE SUMMARY: CTDlvol: 11.74 mGy DLP: 507.32 mGycm COMPARISON: CTA chest November 02, 2023. # of known CTs in the past 12 months: None # of known Cardiac Nuclear Medicine Studies in the past 12 months: None. FINDINGS: Thoracic Aorta: Aneurysmal dilation of the ascending aorta measures 4.5 cm. Heart: No cardiomegaly. No atherosclerotic calcifications of the coronary arteries. Pulmonary Vessels: No aneurysm. Hardware: None. Lymph nodes: No lymphadenopathy. Lungs and Airways: Clear. Pleura: No pleural effusion or pneumothorax. Upper Abdomen: Unremarkable. Bones: No acute bony abnormalities. CT/CTA Chest W/WO Contrast IMPRESSION: Aneurysmal dilation of the ascending aorta measures 4.5 cm. Reading Location: [id number]
== END | disposition home or self-care (01) ==
PROVIDERS: PCP Family Medicine; Referring Provider Nurse Practitioner Family; Visit Provider Nurse Practitioner Family
DX: I71.20 Thoracic aortic aneurysm, without rupture, unspecified (principal)
CPT/HCPCS: 71275; Q9967